=== PATIENT | male | born 1940 | race Caucasian/White ===

== ENCOUNTER 2016-04-22 09:56 | Outpatient (RCR) | payer MEDICARE ==
[~2016-04-22 09:56] MED LIST: ACDPT PO; ACET-2151; ALLO100T PO; ALLP100T PO; ALPR.25T; AMIO200T2 PO; AMIO200T50 PO; AMIO400T2; AMIT25TA9 PO; ASP81TEC; ASP81TEC PO; ATOR10TA66 PO; ATRV10T PO; BUDE10.2 IH; CARV6.252 PO; CEFU500T5 PO; CHOL500014 PO; CHOL50007 PO; DABI75CA3 PO; DILT120C PO; DILT120C56 PO; DOXA1TAB PO; FURO20TA4 PO; FURO40TA4; FURO40TA4 PO; FURO80TA3 PO; HDRL25T; HYDR-2997 PO; HYDR-3156 PO; HYDR-3490 PO; HYDR-3604; HYDR-3714; HYOS0.1283 SL; KCL20TCR PO; LISI20TA PO; LOVA20TA2 PO; METO-270 PO; METO-333; METO2.5T PO; METO25TA2; METO50TA7 PO; MTP50T; MTP50T PO; MULT-608; NAPR-243 PO; POTA10CA43; POTA20TA15 PO; SMV20T PO; SPIRIVA HHN; SYMBICORT; TIOT4MIS2 INH; TML5OP2.5; TML5OP2.5 OU; TMZP15C PO; TORS100T2 PO; TORS100T4 PO; WARF2.5T82 PO; WRF2.5T PO; WRF5T PO; [UNRECOGNIZED DRUG - CODE]; [UNRECOGNIZED DRUG - CODE] OU
== END 2016-04-22 16:00 | disposition home or self-care (01) ==
LOC: WOUNDCARE 09:56
PROVIDERS: ATTEND Surgery
DX: L97.211 Non-pressure chronic ulcer of right calf limited to breakdown of skin (principal); L97.221 Non-pressure chronic ulcer of left calf limited to breakdown of skin; I87.333 Chronic venous hypertension (idiopathic) with ulcer and inflammation of bilateral lower extremity; I70.232 Atherosclerosis of native arteries of right leg with ulceration of calf; I70.242 Atherosclerosis of native arteries of left leg with ulceration of calf; J44.9 Chronic obstructive pulmonary disease, unspecified; I50.20 Unspecified systolic (congestive) heart failure; N18.9 Chronic kidney disease, unspecified
CPT/HCPCS: 11042; 29581; 97597; 99213

== ENCOUNTER → 2016-05-12 | Outpatient (CLI) | payer MEDICARE ==
--- NOTE | 2016-05-12 09:35 | Diagnostic Imaging Report ---
INDICATION: Shortness of breath, abnormal auscultation from an outside facility. Exam compared 02/27/2016. FINDINGS: The heart is enlarged but decreased in size from the prior. There is prominence of the central and upper lobe pulmonary venous structures; however, this is also improvement from prior. There is some air trapping and chronic COPD. Interstitial opacities in the lower lobes are believed chronic but could easily obscure element of interstitial edema superimposed. IMPRESSION: While there is cardiomegaly and vascular congestion, these findings improved from the prior study. Interstitial changes bilaterally at least in part chronic, however, would make an element of interstitial edema superimposed very difficult to exclude. Dictated by: Dictated on workstation # [id number]
== END ==
LOC: RAD 09:10
PROVIDERS: ATTEND Internal Medicine
DX: J81.1 Chronic pulmonary edema (principal)
CPT/HCPCS: 71020

== ENCOUNTER 2016-05-20 13:51 | Outpatient (RCR) | payer MEDICARE | END 2016-05-20 16:00 | disposition home or self-care (01) | LOC: WOUNDCARE 13:51 | PROVIDERS: ATTEND Surgery | DX: L97.211 Non-pressure chronic ulcer of right calf limited to breakdown of skin (principal); I87.331 Chronic venous hypertension (idiopathic) with ulcer and inflammation of right lower extremity; N18.9 Chronic kidney disease, unspecified; I50.20 Unspecified systolic (congestive) heart failure; J44.9 Chronic obstructive pulmonary disease, unspecified | CPT/HCPCS: 29581; 99212 ==

== ENCOUNTER 2016-06-14 12:08 | Emergency (ER) | payer MEDICARE ==
[~2016-06-14] VITALS: Ht 172.7 cm; Wt 91.2 kg
[2016-06-14] MEDS ORDERED: OXYMETAZOLINE (AFRIN) 0.05% NA 15 ML BTL ONE (12:14)
--- NOTE | 2016-06-14 12:28 | ED Fall/Injury ---
General Chief Complaint: Trauma-Non Activation Stated Complaint: FALL, FACIAL INJ Nursing Triage Note: Patient advised he was walking at his residence when he tripped on his oxygen tubing and fell. Pt. denies loss of consciousness at the time of the incident and is A&O x 3 upon EMS arrival. Source: patient Exam Limitations: no limitations History of Present Illness Time seen by provider: 12:27 Initial Comments To ER per EMS from home with reports of a fall. Patient was in the living room when he tripped over his oxygen tubing falling face first onto the carpet. There is no loss of consciousness and he denies neck pain headache or vomiting. However he is on Pradaxa and has a nosebleed rather significant. No other injuries. He wears oxygen jtubzj-zyb-[id number] at 4 L for history of emphysema. Location Injury Occurred: patients home Occurred: just prior to arrival Severity: moderate Injuries/Pain Location: head, face Associated Symptoms (Fall): No Abdominal Pain, No Chest Pain, No Headache, No Neck Pain, No Seizures Allergies and Home Medications Allergies Coded Allergies: No Known Drug Allergies (Verified , 02/14/09) Home Medications Acetaminophen/Diphenhydramine 1 Ea Tab 2 TAB PO HS (Reported) Allopurinol 100 Mg Tablet 100 MG PO BID (Reported) Amiodarone HCl 200 Mg Tablet 200 MG PO 1700 (Reported) Aspirin 81 Mg Tabec 81 MG PO HS (Reported) Atorvastatin Calcium 10 Mg Tablet 10 MG PO Q48H (Reported) Budesonide/Formoterol Fumarate 10.2 Gm Hfa.aer.ad 2 PUFF IH BID (Reported) Dabigatran Etexilate Mesylate 75 Mg Capsule 75 MG PO 0700,1700 (Reported) Metoprolol Succinate 25 Mg Tab.er.24h 12.5 MG PO DAILY (Reported) TAKES 1/2 (25MG) TABLET Tiotropium [place] 4 Gm Mist.inhal 2 PUFF INH DAILY (Reported) Torsemide 100 Mg Tablet 50 MG PO DAILY (Reported) TAKES 1/2 (100MG) TABLET Constitutional: see HPI Eyes: No Symptoms Reported Ears, Nose, Mouth, Throat: see HPI epistaxis Respiratory: no symptoms reported Genitourinary: no symptoms reported Musculoskeletal: no symptoms reported Skin: no symptoms reported Past Iuicdur-Eratcv-Jtkypt Hx Patient Social History Alcohol Use: Denies Use Recreational Drug Use: No Smoking Status: Never a Smoker Type Used: Cigarettes Former Smoker/When Quit: Mar 30, 1996 Recent Foreign Travel: No Contact w/Someone Who Travel: No Recent Infectious Disease Expo: No Recent Hopitalizations: Yes Immunizations Up To Date Tetanus Booster (TDap): Less than 5yrs PED Vaccines UTD: No Date of Pneumonia Vaccine: Dec 27, 2015 Seasonal Allergies Seasonal Allergies: No Surgeries HX Surgeries: Yes (PORT FOR CHEMO, THEN REMOVED. quad bypass) Surgeries: Cardiac, CABG, Defibrillator, Pacemaker Respiratory Hx Respiratory Disorders: Yes (DYSPNEA) Respiratory Disorders: Sleep Apnea, COPD Cardiovascular Hx Cardiac Disorders: Yes (pacemaker/defibulator) Cardiac Disorders: Atrial Fibrillation, Cardiomyopathy, Chronic Edema/Swelling , Coronary Artery Disease, High Cholesterol, Hypertension Neurological Hx Neurological Disorders: No Reproductive System Hx Reproductive Disorders: No Genitourinary Hx Genitourinary Disorders: Yes (stage 3 renal failure) Genitourinary Disorders: Renal Failure Gastrointestinal Hx Gastrointestinal Disorders: No Musculoskeletal Hx Musculoskeletal Disorders: Yes Musculoskeletal Disorders: Chronic Back Pain Endocrine Hx Endocrine Disorders: No Endocrine Disorders: Diabetes, Non-Insulin dep HEENT HX ENT Disorders: Yes HEENT Disorders: Glaucoma Hearing Impairment: Hard of Hearing 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 Psychosocial Hx Psychiatric Problems: No Integumentary HX Skin/Integumentary Disorder: No Blood Transfusions Hx Blood Disorders: Yes (HX OF NON HODGKINS LYMPHOMA IN 1996) Adverse Reaction to a Blood Tr: No Family Medical History Family Medial History: Diabetes mellitus G8 BROTHER Prostate cancer G8 BROTHER Physical Exam Vital Signs Vital Sign - Last 12Hours Capillary Refill : Less Than 3 Seconds General Appearance: WD/WN no apparent distress HEENT: PERRL/EOMI TMs normal other (active bleeding from the anterior portion of the septum on the right and a bit more posterior on the left. The right is a heavier bleeding was cauterized easily with silver nitrate then Merocel/Afrin bilaterally.) Neck: non-tender full range of motion Respiratory: normal breath sounds no respiratory distress no accessory muscle use Gastrointestinal: normal bowel sounds non tender soft Extremities: normal range of motion non-tender normal inspection Neurologic/Psychiatric: alert normal mood/affect oriented x 3 Progress/Results/Core Measures Results/Orders My Orders Orders-LENA MAZARIEGOS APRN Ct Head/Face/Cervical Wo (06/14/16 12:26) Oxymetazoline 0.05% Nasal [place] (Afrin 0. (06/14/16 21:00) Tranexamic Acid Injection (Cyklokapron I (06/14/16 13:15) Tranexamic Acid Injection (Cyklokapron I (06/14/16 13:15) Medications Given in ED Current Medications Medications Dose Ordered Sig/Ashley Route Start Time Stop Time Status Last Admin Dose Admin Oxymetazoline HCl 15 ml STK-MED ONCE .ROUTE 06/14/16 12:14 06/14/16 12:16 DC 06/14/16 12:26 15 ML Tranexamic Acid To be applied topica... ONCE ONCE IV 06/14/16 13:15 06/14/16 13:16 DC 06/14/16 13:35 1 MG Vital Signs/I&O Vital Sign - Last 12Hours 06/14/16 06/14/16 12:17 12:17 Temp 98.6 98.6 Pulse 81 81 Resp 14 14 B/P 114/56 114/56 Pulse Ox 98 98 O2 Delivery Nasal Cannula Nasal Cannula O2 Flow Rate 4 Blood Pressure Mean: 75 Progress Note : Progress Note 1316-the right nostril/septum was cauterized with silver nitrate and then a Merocel sponge was placed bilaterally and soaked in Afrin. That was about 30- 40 minutes ago. At this time the right side is not bleeding, there is a slow but persistent ooze to the left side of the septum we will apply TXa on a Merocel sponge to the left topically and reevaluate. 1345-left side of the septum continues to use. This is despite TXa and Afrin. Silver nitrate was applied topically with hemostasis. 1435-still no bleeding from the left side of the septum. We will discharge to home. He will be sent home with an OXy mask to use instead of a nasal cannula for the next 24-36 hours. His oxygen saturation on his baseline 4 L per oxymask is 95 percent. Departure Impression Impression: Primary Impression: Fall at home Additional Impressions: Epistaxis Anticoagulant long-term use Disposition: HOME, SELF-CARE Condition: Improved Departure-Patient Inst. Decision time for Depature: 13:21 Referrals: MITCH GALLARDO MD (PCP/Family) Primary Care Physician Patient Instructions: Nosebleeds Add. Discharge Instructions: 1. If your nose bleeds again apply the nose clamp for 20 minutes and lean forward. This does not stop the bleeding return to the emergency room 2. Wear the mask provided for the next 24-36 hours before switching back to nasal cannula 3. Call your doctor for follow-up next week All discharge instructions reviewed with patient and/or family. Voiced understanding. LENA MAZARIEGOS APRN Jun 14, 2016 12:28
--- NOTE | 2016-06-14 13:08 | Diagnostic Imaging Report ---
PROCEDURE: CT head, face, and cervical spine without contrast. TECHNIQUE: Multiple contiguous axial images were obtained through the head, neck, and facial bones without the use of intravenous contrast. Sagittal and coronal reformations through the cervical spine and facial bones were also performed. INDICATION: Fall with trauma to the face. Swelling. COMPARISON: None. CT HEAD: The ventricles and cortical sulci are diffusely prominent, compatible with age-related volume loss. There are confluent areas of abnormal, low attenuation in the periventricular white matter. This is consistent with small vessel ischemic changes; age-indeterminate. There is no prior study available for comparison. There is no midline shift or mass-effect. No acute intra-axial hemorrhage is seen. There are no abnormal areas of increased or decreased density to suggest acute hemorrhage or edema. No extra-axial masses or collections are present. The bony calvarium is intact. CT FACIAL BONES: Linear hyperdense focus is identified within the anterior right naris (image 49, series 4). Correlation with foreign body is recommended. Otherwise, the nasal bones are intact. The bony nasal septum is intact, as well. Evaluation of the paranasal sinuses demonstrate air-fluid level and mild amount of mucosal thickening in the left maxillary sinus. Moderate mucosal thickening with small air-fluid level and debris are also noted within the right maxillary sinus. There is mild scattered mucosal thickening of the ethmoid air cells. Minimal mucosal thickening in the left sphenoid sinus is also noted. Frontal sinuses and right sphenoid sinus are unremarkable. There is no acute fracture or dislocation of the paranasal sinuses. No acute bony abnormalities are identified. Bilateral zygomatic arches are intact. There is no evidence acute fracture. Medial and lateral pterygoid plates are intact, as well. There is no evidence of acute fracture or dislocation of the mandible. There is no fracture of the alveolar ridge of the maxilla. Mastoid air cells show scattered partial opacification bilaterally. No other acute bony abnormalities are seen. There is no fracture of the orbits. Scleral banding is noted bilaterally. Otherwise, the globes are unremarkable. No other unexpected radiopaque foreign bodies are seen. There is no soft tissue emphysema. CT CERVICAL SPINE: Static alignment of the cervical spine is maintained. There is no significant anteroretrolisthesis. There is no evidence of jumped facets. Vertebral body heights are preserved. There is no evidence of acute fracture. No bony fragments are seen within the spinal canal. There are multilevel degenerative changes consisting of intervertebral disc height loss at the anterior and posterior disc osteophyte complex formations. These changes are fairly diffuse and are greatest at the C4-C5 through C7-T1 levels. Pre-and paravertebral soft tissue structures are unremarkable. Included views of the lung apices show partially visualized right-sided pleural effusion. IMPRESSION: 1. No acute intracranial abnormality. No CT evidence of mass, acute infarct or intracranial hemorrhage. 2. Small vessel ischemic changes in the periventricular and subcortical white matter; likely chronic. 3. No CT evidence of acute fracture or dislocation of the facial bones. 4. Paranasal sinus disease with air-fluid levels in the bilateral maxillary sinuses. Correlation for underlying acute sinusitis is recommended. 5. No CT evidence of acute fracture or dislocation of the cervical spine. 6. Advanced diffuse multilevel degenerative changes of the cervical spine. 7. Scattered opacification of the mastoid air cells, bilaterally. In the correct clinical setting, this can be seen as a sequela of mastoiditis. Clinical correlation recommended. Dictated by: Dictated on workstation # [id number]
[2016-06-14] MEDS ORDERED: TRANEXAMIC ACID 100 MG/ML 10 ML INJECTION IV ONE ×2 (13:15)
[2016-06-14 14:41] VITALS: BP 112/72
[2016-06-14] MEDS ORDERED: OXYMETAZOLINE (AFRIN) 0.05% NA 15 ML BTL SCH (21:00)
== END 2016-06-14 14:41 | disposition home or self-care (01) ==
LOC: EDUNIT# 12:08 → ER 12:09
DX: R04.0 Epistaxis (principal); J43.9 Emphysema, unspecified; M47.819 Spondylosis without myelopathy or radiculopathy, site unspecified; J32.0 Chronic maxillary sinusitis; I10 Essential (primary) hypertension; E11.9 Type 2 diabetes mellitus without complications; I48.2 Chronic atrial fibrillation; Z79.01 Long term (current) use of anticoagulants; Z79.82 Long term (current) use of aspirin; Z79.899 Other long term (current) drug therapy; Z95.810 Presence of automatic (implantable) cardiac defibrillator; Z99.81 Dependence on supplemental oxygen
CPT/HCPCS: 70450; 70486; 72125; 96374; 99283

== ENCOUNTER 2016-07-03 12:57 | Outpatient (RCR) | payer MEDICARE ==
[2016-06-26 14:27] VITALS: BP 96/70
[~2016-07-03] VITALS: Ht 172.7 cm; Wt 91.3 kg
[~2016-07-03 12:57] MED LIST changes: +ACETAMINOPHEN 500 MG TAB (TYLENOL) PO PRN; +FERRIC CARBOXYMALTOSE 750 MG /NS 250 ML IV SCH; +diphenhydrAMINE 50 MG/ML INJ (BENADRYL) IV PRN
[2016-07-03 17:07] VITALS: BP 92/66
[2016-08-21] MEDS ORDERED: DCL250C PO (00:42)
[2016-08-21] MEDS ORDERED: LEVO250T46 PO (00:42)
[2016-08-21] MEDS ORDERED: SERT50TA9 PO (00:42)
== END 2016-09-24 | disposition home or self-care (01) ==
LOC: SDC 12:57
PROVIDERS: ATTEND Internal Medicine Nephrology
DX: D50.9 Iron deficiency anemia, unspecified (principal); D63.1 Anemia in chronic kidney disease; N18.4 Chronic kidney disease, stage 4 (severe)
CPT/HCPCS: 96365

== ENCOUNTER 2016-07-12 09:06 | Emergency (ER) | payer MEDICARE ==
[~2016-07-12] VITALS: Ht 172.7 cm; Wt 92.5 kg
[~2016-07-12 09:06] MED LIST changes: -ACETAMINOPHEN 500 MG TAB (TYLENOL) PO PRN; -FERRIC CARBOXYMALTOSE 750 MG /NS 250 ML IV SCH; -diphenhydrAMINE 50 MG/ML INJ (BENADRYL) IV PRN
[2016-07-12] MEDS ORDERED: RT-ALBUTEROL/IPRATROPIUM 3 ML (DUONEB) VIAL INH ONE (09:30)
[2016-07-12 09:43] LABS: BASOPHILS % (AUTO) 0 % (0-10); EOSINOPHILS # (AUTO) 0.2 10^3/uL (0.0-0.3); EOSINOPHILS % (AUTO) 4 % (0-10); LYMPHOCYTES # (AUTO) 1.1 X 10^3 (1.0-4.0); LYMPHOCYTES % (AUTO) 19 % (12-44); MEAN CORPUSCULAR HEMOGLOBIN 30 PG (25-34); MEAN CORPUSCULAR HGB CONC 31 G/DL (32-36); MEAN CORPUSCULAR VOLUME 95 FL (80-99); MEAN PLATELET VOLUME 11.8 FL (7.4-10.4); MONOCYTES % (AUTO) 17 % (0-12); NEUTROPHILS # (AUTO) 3.5 X 10^3 (1.8-7.8); NEUTROPHILS % (AUTO) 60 % (42-75); PLATELET COUNT 158 10^3/uL (130-400); RED BLOOD COUNT 3.63 10^6/uL (4.35-5.85); RED CELL DISTRIBUTION WIDTH 20.2 % (10.0-14.5); WHITE BLOOD COUNT 5.8 10^3/uL (4.3-11.0)
[2016-07-12 09:55] LABS: INR 2.2 (0.8-1.4)
[2016-07-12 10:03] LABS: ALBUMIN 3.5 G/DL (3.2-4.5); BILIRUBIN,TOTAL 1.5 MG/DL (0.1-1.0); CALCIUM 8.6 MG/DL (8.5-10.1); CREATININE SERUM 4.37 MG/DL (0.60-1.30); POTASSIUM 4.4 MMOL/L (3.6-5.0); TOTAL PROTEIN 7.2 G/DL (6.4-8.2)
--- NOTE | 2016-07-12 10:21 | Diagnostic Imaging Report ---
EXAM: CHEST PA/LAT (2 VIEW) INDICATION: Hemoptysis. COMPARISON: Chest radiographs 05/12/2016. FINDINGS: Interval increase in atelectasis or infiltrate in the right medial lung base. Cardiomegaly with increased pulmonary venous congestion. Diffuse prominence of the interstitium. Hyperinflation. Blunting of the costophrenic angles could be due to tiny effusions or pleural thickening. Calcified aorta. No pneumothorax. IMPRESSION: 1. Interval progression of atelectasis and/or infiltrate in the right medial lung base. 2. The remainder is stable including cardiomegaly with increased pulmonary vascularity and prominence of the interstitium throughout both lungs. Dictated by: Dictated on workstation # [id number]
[2016-07-12] MEDS ORDERED: NS IV 1000 ML 1,000 ML IV ONE (11:11)
[2016-07-12] MEDS ORDERED: NS IV 500 ML 500 ML IV ONE (11:13)
--- NOTE | 2016-07-12 11:27 | ED General ---
General Chief Complaint: Coughing up blood Stated Complaint: WHEEZING, COUHGING UP BLOOD Nursing Triage Note: STATES HE STARTED WHEEZING THIS AM AND COUGHING UP BLOOD. Nursing Sepsis Screen: No Definite Risk Source of Information: Patient, Family, Old Records History of Present Illness Time Seen by Provider: 09:10 Initial Comments This 76-year-old gentleman presents to the emergency room with complaints of hemoptysis. He is on Ranexa for atrial fibrillation. He has history of pneumonia for which she was admitted in February. He has COPD and congestive heart failure as well. He reports one episode of blood approximately a teaspoon and volume. His cough is also productive of sputum. He is wheezy on auscultation and has some coarse breath sounds particularly on the right. He has some lower extremity edema. His primary care provider is Dr. Mitch Hong. His wrapper sheeter is Dr. Charlotte pérez. He is also seen Dr. Robledo in the past. Allergies and Home Medications Allergies Coded Allergies: No Known Drug Allergies (Verified , 02/14/09) Home Medications Acetaminophen/Diphenhydramine 1 Ea Tab, 2 TAB PO HS, (Reported) Allopurinol 100 Mg Tablet, 100 MG PO BID, (Reported) Amiodarone HCl 200 Mg Tablet, 200 MG PO 1700, (Reported) Aspirin 81 Mg Tabec, 81 MG PO HS, (Reported) Atorvastatin Calcium 10 Mg Tablet, 10 MG PO Q48H, (Reported) Budesonide/Formoterol Fumarate 10.2 Gm Hfa.aer.ad, 2 PUFF IH BID, (Reported) Dabigatran Etexilate Mesylate 75 Mg Capsule, 75 MG PO 0700,1700, (Reported) Metoprolol Succinate 25 Mg Tab.er.24h, 12.5 MG PO DAILY, (Reported) TAKES 1/2 (25MG) TABLET Tiotropium [place] 4 Gm Mist.inhal, 2 PUFF INH DAILY, (Reported) Torsemide 100 Mg Tablet, 50 MG PO DAILY, (Reported) TAKES 1/2 (100MG) TABLET Constitutional: no symptoms reported EENTM: no symptoms reported Respiratory: see HPI Cardiovascular: see HPI Gastrointestinal: no symptoms reported Genitourinary: no symptoms reported Musculoskeletal: no symptoms reported Skin: no symptoms reported Psychiatric/Neurological: No Symptoms Reported Hematologic/Lymphatic: No Symptoms Reported Past Tpkixtq-Uwddif-Zijhmd Hx Patient Social History Alcohol Use: Denies Use Recreational Drug Use: No Smoking Status: Former Smoker Type Used: Cigarettes Former Smoker/When Quit: Mar 30, 1996 Recent Foreign Travel: No Contact w/Someone Who Travel: No Recent Infectious Disease Expo: No Recent Hopitalizations: Yes Immunizations Up To Date Tetanus Booster (TDap): Less than 5yrs PED Vaccines UTD: No Date of Pneumonia Vaccine: Dec 27, 2015 Date of Influenza Vaccine: Dec 27, 2015 Seasonal Allergies Seasonal Allergies: No Surgeries HX Surgeries: Yes (PORT FOR CHEMO, THEN REMOVED, QUAD BYPASS) Surgeries: Cardiac, CABG, Defibrillator, Pacemaker Respiratory Hx Respiratory Disorders: Yes (DYSPNEA) Respiratory Disorders: Sleep Apnea, COPD Cardiovascular Hx Cardiac Disorders: Yes (PACEMAKER/DEFIBRILLATOR, CHF) Cardiac Disorders: Atrial Fibrillation, Cardiomyopathy, Chronic Edema/Swelling , Coronary Artery Disease, High Cholesterol, Hypertension Neurological Hx Neurological Disorders: No Reproductive System Hx Reproductive Disorders: No Genitourinary Hx Genitourinary Disorders: Yes (STAGE 3 RENAL FAILURE) Genitourinary Disorders: Renal Failure Gastrointestinal Hx Gastrointestinal Disorders: No Musculoskeletal Hx Musculoskeletal Disorders: Yes Musculoskeletal Disorders: Chronic Back Pain Endocrine Hx Endocrine Disorders: No Endocrine Disorders: Diabetes, Non-Insulin dep HEENT HX ENT Disorders: Yes (GLASSES) HEENT Disorders: Glaucoma Loss of Vision: Bilateral Hearing Impairment: Hard of Hearing 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 Psychosocial Hx Psychiatric Problems: No Integumentary HX Skin/Integumentary Disorder: No Blood Transfusions Hx Blood Disorders: Yes (HX OF NON HODGKINS LYMPHOMA IN 1996) Adverse Reaction to a Blood Tr: No Family Medical History Family Medial History: Diabetes mellitus G8 BROTHER Prostate cancer G8 BROTHER Physical Exam Vital Signs Vital Sign - Last 12Hours 07/12/16 09:16 Temp 97.1 Pulse 81 B/P (MAP) 92/72 Pulse Ox 100 O2 Delivery Nasal Cannula O2 Flow Rate 4.00 Capillary Refill : Less Than 3 Seconds General Appearance: No Apparent Distress, WD/WN HEENT: PERRL/EOMI (with chronic conjunctivitis), Normal ENT Inspection Neck: Normal Inspection Respiratory: No Accessory Muscle Use, No Respiratory Distress, Rhonci (coarse breath sounds right greater than left) Cardiovascular: Regular Rate, Rhythm, No Edema, No Murmur Gastrointestinal: Normal Bowel Sounds, Non Tender, Soft Extremity: Non Tender, Swelling Neurologic/Psychiatric: Alert, Oriented x3, No Motor/Sensory Deficits, Normal Mood/Affect, high school principal II-XII Norm as Tested Skin: Normal Color, Warm/Dry Focused Exam Lactic Acid Level Laboratory Tests Test 07/12/16 12:10 Progress/Results/Core Measures Results/Orders Lab Results Laboratory Tests Test 07/12/16 09:36 07/12/16 12:10 Range/Units White Blood Count 5.8 4.3-11.0 10^3/uL Red Blood Count 3.63 L 4.35-5.85 10^6/uL Hemoglobin 10.8 L 13.3-17.7 G/DL Hematocrit 35 L 40-54 % Mean Corpuscular Volume 95 80-99 FL Mean Corpuscular Hemoglobin 30 25-34 PG Mean Corpuscular Hemoglobin Concent 31 L 32-36 G/DL Red Cell Distribution Width 20.2 H 10.0-14.5 % Platelet Count 158 130-400 10^3/uL Mean Platelet Volume 11.8 H 7.4-10.4 FL Neutrophils (%) (Auto) 60 42-75 % Lymphocytes (%) (Auto) 19 12-44 % Monocytes (%) (Auto) 17 H 0-12 % Eosinophils (%) (Auto) 4 0-10 % Basophils (%) (Auto) 0 0-10 % Neutrophils # (Auto) 3.5 1.8-7.8 X 10^3 Lymphocytes # (Auto) 1.1 1.0-4.0 X 10^3 Monocytes # (Auto) 1.0 0.0-1.0 X 10^3 Eosinophils # (Auto) 0.2 0.0-0.3 10^3/uL Basophils # (Auto) 0.0 0.0-0.1 10^3/uL Prothrombin Time 24.0 H 12.2-14.7 SEC INR Comment 2.2 H 0.8-1.4 Activated Partial Thromboplast Time 68 H 24-35 SEC Sodium Level 138 135-145 MMOL/L Potassium Level 4.4 3.6-5.0 MMOL/L Chloride Level 102 98-107 MMOL/L Carbon Dioxide Level 22 21-32 MMOL/L Anion Gap 14 5-14 MMOL/L Blood Urea Nitrogen 115 *H 7-18 MG/DL Creatinine 4.37 H 0.60-1.30 MG/DL Estimat Glomerular Filtration Rate 13 BUN/Creatinine Ratio 26 Glucose Level 92 70-105 MG/DL Calcium Level 8.6 8.5-10.1 MG/DL Total Bilirubin 1.5 H 0.1-1.0 MG/DL Aspartate Amino Transf (AST/SGOT) 21 5-34 U/L Alanine Aminotransferase (ALT/SGPT) 12 0-55 U/L Alkaline Phosphatase 139 H 40-136 U/L C-Reactive Protein High Sensitivity 1.59 H 0.00-0.50 MG/DL B-Type Natriuretic Peptide 3722.5 H <100.0 PG/ML Total Protein 7.2 6.4-8.2 G/DL Albumin 3.5 3.2-4.5 G/DL Micro Results Microbiology 07/12/16 Influenza Types A,B Antigen (MARS) - Final, Complete My Orders Orders - ROBSON ROSS MD Cbc With Automated Diff (07/12/16 09:06) Comprehensive Metabolic Panel (07/12/16 09:06) Protime With Inr (07/12/16 09:06) Partial Thromboplastin Time (07/12/16 09:06) Influenza A And B Antigens (07/12/16 09:06) Saline Lock/Iv-Start (07/12/16 09:06) Chest Pa/Lat (2 View) (07/12/16 09:06) Albuterol/Ipra Inhalation Soln (Duoneb I (07/12/16 09:30) Svn Sm Volume Nebulizer Rt-Rfs (07/12/16 09:25) BNP (07/12/16 09:26) Ns Iv 1000 Ml (Sodium Chloride 0.9%) (07/12/16 11:11) Hs C Reactive Protein (07/12/16 11:13) Ns Iv 500 Ml (Sodium Chloride 0.9%) (07/12/16 11:13) Lactic Acid Analyzer (07/12/16 11:13) Blood Culture (07/12/16 11:13) Piperacillin Sodium/Tazobactam (Zosyn Vi (07/12/16 11:30) Ekg Tracing (07/12/16 11:22) Monitor-Rhythm Ecg Trace Only (07/12/16 11:22) Sputum Culture (07/12/16 11:38) Medications Given in ED Current Medications Medications Dose Ordered Sig/Ashley Route Start Time Stop Time Status Last Admin Dose Admin Albuterol/ Ipratropium 3 ml ONCE ONCE INH 07/12/16 09:30 07/12/16 09:31 DC 07/12/16 09:39 3 ML Sodium Chloride 500 ml @ 0 mls/hr Q0M ONCE IV 07/12/16 11:13 07/12/16 11:15 DC 07/12/16 11:40 500 MLS/HR Vital Signs/I&O Vital Sign - Last 12Hours 07/12/16 07/12/16 07/12/16 09:16 09:39 10:09 Temp 97.1 Pulse 81 B/P (MAP) 92/72 Pulse Ox 100 96 O2 Delivery Nasal Cannula Nasal Cannula O2 Flow Rate 4.00 4.00 4.00 Blood Pressure Mean: 79 Progress Note : Time: 11:27 Progress Note Patient was found to be in both heart failure and renal failure after evaluation of labs and chest x-ray. He continues to cough up a scant amount of blood. Patient's reports he was actually scheduled to start dialysis soon. He sees Dr. eDnae Molina at [facility] in [place]. His renal function has been worsening recently and has been greater than 4 on an outpatient basis. She reports his last outpatient GFR was in the teens. GFR today is 13. Given his congestive failure with hemoptysis and coarse right-sided breath sounds and possible pneumonia, I feel it is best that he be transferred to [facility] for specialty care. In the meantime blood cultures and lactic acid have been drawn. Antibiotic therapy will be initiated with Zosyn. ECG Initial ECG Impression Date: Jul 12, 2016 Initial ECG Impression Time: 11:27 Initial ECG Rate: 78 Comment A. fib with paced rhythm at 78 bpm. Similar to prior with no acute changes. Diagnostic Imaging Diagonstic Imaging: Xray Plain Films/CT/US/NM/MRI: chest Comments Chest x-ray viewed by me and report reviewed. See report below: NAME: PEDRO LUIS SAMANIEGO MED REC#: [id number] PT STATUS: REG ER : 1940 PHYSICIAN: ROBSON ROSS MD ADMIT DATE: 07/12/16/ER Draft Date of Exam:07/12/16 CHEST PA/LAT (2 VIEW) EXAM: CHEST PA/LAT (2 VIEW) INDICATION: Hemoptysis. COMPARISON: Chest radiographs 05/12/2016. FINDINGS: Interval increase in atelectasis or infiltrate in the right medial lung base. Cardiomegaly with increased pulmonary venous congestion. Diffuse prominence of the interstitium. Hyperinflation. Blunting of the costophrenic angles could be due to tiny effusions or pleural thickening. Calcified aorta. No pneumothorax. IMPRESSION: 1. Interval progression of atelectasis and/or infiltrate in the right medial lung base. 2. The remainder is stable including cardiomegaly with increased pulmonary vascularity and prominence of the interstitium throughout both lungs. Dictated on workstation # [id number] Dict: 07/12/16 1015 Trans: 07/12/16 1020 [facility] [id number] Interpreted by: SANDRA BURGESS MD Departure Impression Impression: Primary Impression: Pneumonia Qualified Codes: J18.9 - Pneumonia, unspecified organism Additional Impressions: Chronic renal failure Qualified Codes: N18.9 - Chronic kidney disease, unspecified CHF exacerbation Qualified Codes: I50.9 - Heart failure, unspecified COPD exacerbation Hemoptysis Disposition: XF SHT-TRM HOSP Condition: Improved Transfer Transfer Time: 12:35 Transfer Facility: [facility] under the care of Dr. Luke Method of Transfer: EMS Departure-Patient Inst. Referrals: MITCH HONG MD (PCP/Family) Primary Care Physician ROBSON ROSS MD Jul 12, 2016 11:27
[2016-07-12] MEDS ORDERED: PIPERACILLIN SODIUM/TAZOBACTAM 4.5 GM in NS (IVPB) 100 ML IV ONE (11:30)
[2016-07-12 12:35] VITALS: BP 111/90
== END 2016-07-12 12:35 | disposition short-term general hospital (02) ==
LOC: EDUNIT# 09:06 → ER 09:07
DX: J18.9 Pneumonia, unspecified organism (principal); I13.0 Hypertensive heart and chronic kidney disease with heart failure and stage 1 through stage 4 chronic kidney disease, or unspecified chronic kidney disease; N18.4 Chronic kidney disease, stage 4 (severe); I50.9 Heart failure, unspecified; J44.1 Chronic obstructive pulmonary disease with (acute) exacerbation; R04.2 Hemoptysis; E11.9 Type 2 diabetes mellitus without complications; I48.2 Chronic atrial fibrillation; Z79.899 Other long term (current) drug therapy; Z79.82 Long term (current) use of aspirin; Z95.1 Presence of aortocoronary bypass graft
CPT/HCPCS: 36415; 71020; 80053; 83605; 83880; 85025; 85610; 85730; 86141; 87040; 87070; 87077; 87186; 87205; 87804; 93005; 94640; 96361; 96374

== ENCOUNTER → 2016-08-08 | Outpatient (CLI) | payer MEDICARE ==
[2016-08-08 11:14] LABS: MEAN PLATELET VOLUME 11.1 FL (7.4-10.4); RED BLOOD COUNT 3.68 10^6/uL (4.35-5.85); RED CELL DISTRIBUTION WIDTH 18.7 % (10.0-14.5); WHITE BLOOD COUNT 12.9 10^3/uL (4.3-11.0)
[2016-08-08 11:24] LABS: INR 1.9 (0.8-1.4); PROTHROMBIN TIME PATIENT 21.7 SEC (12.2-14.7)
[2016-08-08 11:35] LABS: ALBUMIN 3.2 G/DL (3.2-4.5); BILIRUBIN,TOTAL 2.3 MG/DL (0.1-1.0); CALCIUM 8.5 MG/DL (8.5-10.1); CREATININE SERUM 3.04 MG/DL (0.60-1.30); POTASSIUM 4.4 MMOL/L (3.6-5.0); TOTAL PROTEIN 6.4 G/DL (6.4-8.2); hs C REACTIVE PROTEIN 6.89 MG/DL (0.00-0.50)
--- NOTE | 2016-08-08 12:02 | Diagnostic Imaging Report ---
EXAMINATION: Right lower extremity duplex venous ultrasound. TECHNIQUE: DVT protocol. Multiple sonographic images with color Doppler and waveform interrogation were performed of the right lower extremity veins with compression and augmentation maneuvers. INDICATION: Right leg swelling. FINDINGS: The right lower extremity veins from the groin to below the knee veins were examined with normal color-flow, compressibility and normal waveform demonstrated. The great saphenous vein is patent. IMPRESSION: No evidence of DVT in the right lower extremity. Dictated by: Dictated on workstation # [id number]
== END ==
LOC: RAD 10:56
PROVIDERS: ATTEND Physician Assistant
DX: R22.41 Localized swelling, mass and lump, right lower limb (principal); M79.89 Other specified soft tissue disorders
CPT/HCPCS: 36415; 80053; 85027; 85610; 85730; 86141

== ENCOUNTER 2016-08-21 00:21 | Emergency (ER) | payer MEDICARE ==
[~2016-08-21] VITALS: Ht 172.7 cm; Wt 98.0 kg
[2016-08-21] MEDS ORDERED: MUPIROCIN 2% OINT 22 GM (BACTROBAN) TUBE ONE (00:40)
[2016-08-21] MEDS ORDERED: LEVO250T46 PO (00:42)
[2016-08-21] MEDS ORDERED: SERT50TA9 PO (00:42)
[2016-08-21] MEDS ORDERED: DCL250C PO (00:42)
[2016-08-21 00:45] LABS: MEAN PLATELET VOLUME 11.9 FL (7.4-10.4); RED BLOOD COUNT 3.69 10^6/uL (4.35-5.85); RED CELL DISTRIBUTION WIDTH 17.5 % (10.0-14.5); WHITE BLOOD COUNT 9.3 10^3/uL (4.3-11.0)
--- NOTE | 2016-08-21 00:45 | ED Upper Extremity ---
General Chief Complaint: Trauma-Non Activation Stated Complaint: FELL Nursing Triage Note: pt to er per ems with c/o fall. reports he was dizzy, fell, landing on left elbow. denies head injury or loc. skin tears on left elbow et left forearm. fistula placed left upper arm on 08/20/[address] [facility]. dressing remains in place. bright red blood noted under dressing. Nursing Sepsis Screen: No Definite Risk Source: patient, EMS, spouse History of Present Illness Time seen by provider: 00:24 Initial Comments PT ARRIVES VIA EMS FROM HOME PT GOT DIZZY ( FREQUENT PROBLEM) AND FELL--HITTING HIS LEFT ARM ON THE MICROWAVE STAND HAS MULTIPLE ABRASIONS TO LEFT ELBOW AND FOREARM PT HAD CREATION OF LEFT ARM AV FISTULA SURGERY TODAY FOR DIALYSIS--AT [facility] PT NOTED TO HAVE BRIGHT RED BLOOD UNDER SURGICAL DRESSING, SO CALLED EMS PT DOES NOT HAVE ANY PAIN ANYWHERE DID NOT HIT HEAD AND NO LOSS OF CONSCIOUSNESS NO CHEST PAIN, PALPITATIONS, OR SHORTNESS OF BREATH PT HAS BEEN OFF PRADAXA X 5 DAYS PT IS CURRENTLY BEING TREATED FOR CELLULITIS OF RIGHT LEG--ON LEVAQUIN AND DICLOXACILLIN--IS IMPROVING Allergies and Home Medications Allergies Coded Allergies: No Known Drug Allergies (Verified , 02/14/09) Home Medications Amiodarone HCl 200 Mg Tablet, 200 MG PO 1700, (Reported) Aspirin 81 Mg Tabec, 81 MG PO HS, (Reported) Atorvastatin Calcium 10 Mg Tablet, 10 MG PO Q48H, (Reported) Dabigatran Etexilate Mesylate 75 Mg Capsule, 75 MG PO 0700,1700, (Reported) Dicloxacillin Sodium 250 Mg Cap, 250 MG PO, (Reported) Levofloxacin 250 Mg Tablet, 250 MG PO DAILY, (Reported) Metoprolol Succinate 25 Mg Tab.er.24h, 12.5 MG PO DAILY, (Reported) TAKES 1/2 (25MG) TABLET on Thursday, Thursday, Thursday et Thursday. Not on dialysis days Sertraline HCl 50 Mg Tablet, 50 MG PO DAILY, (Reported) Constitutional: see HPI, dizziness Respiratory: no symptoms reported Cardiovascular: no symptoms reported Musculoskeletal: see HPI Skin: see HPI Psychiatric/Neurological: No Symptoms Reported Past Grcefky-Jwcbsa-Gglknr Hx Patient Social History Alcohol Use: Denies Use Recreational Drug Use: No Smoking Status: Former Smoker Type Used: Cigarettes Former Smoker/When Quit: Mar 30, 1996 Recent Foreign Travel: No Contact w/Someone Who Travel: No Recent Infectious Disease Expo: No Recent Hopitalizations: Yes Immunizations Up To Date Tetanus Booster (TDap): Less than 5yrs PED Vaccines UTD: No Date of Pneumonia Vaccine: Dec 27, 2015 Date of Influenza Vaccine: Dec 27, 2015 Seasonal Allergies Seasonal Allergies: No Surgeries HX Surgeries: Yes (PORT FOR CHEMO, THEN REMOVED, QUAD BYPASS; RIGHT CENTRAL LINE DIALYSIS CATHETER; LEFT ARM AV FISTUALA/DIALYSIS GRAFT 08/20/16 AT [facility]) Surgeries: Cardiac, CABG, Defibrillator, Dialysis, Pacemaker, Vascular Surgery Respiratory Hx Respiratory Disorders: Yes (DYSPNEA) Respiratory Disorders: Sleep Apnea, COPD Cardiovascular Hx Cardiac Disorders: Yes (PACEMAKER/DEFIBRILLATOR, CHF) Cardiac Disorders: Atrial Fibrillation, Cardiomyopathy, Chronic Edema/Swelling , Coronary Artery Disease, High Cholesterol, Hypertension Neurological Hx Neurological Disorders: No Reproductive System Hx Reproductive Disorders: No Genitourinary Hx Genitourinary Disorders: Yes (STAGE 3 RENAL FAILURE) Genitourinary Disorders: Renal Failure, Dialysis Gastrointestinal Hx Gastrointestinal Disorders: No Musculoskeletal Hx Musculoskeletal Disorders: Yes Musculoskeletal Disorders: Chronic Back Pain Endocrine Hx Endocrine Disorders: Yes Endocrine Disorders: Diabetes, Non-Insulin dep HEENT HX ENT Disorders: Yes (GLASSES) HEENT Disorders: Glaucoma Loss of Vision: Bilateral Hearing Impairment: Hard of Hearing 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 Psychosocial Hx Psychiatric Problems: No Integumentary HX Skin/Integumentary Disorder: No Blood Transfusions Hx Blood Disorders: Yes (HX OF NON HODGKINS LYMPHOMA IN 1996) Adverse Reaction to a Blood Tr: No Family Medical History Family Medial History: Diabetes mellitus G8 BROTHER Prostate cancer G8 BROTHER Physical Exam Vital Signs Vital Sign - Last 12Hours 08/21/16 08/21/16 00:21 01:12 Temp 98.1 Pulse 80 Resp 18 B/P (MAP) 98/71 (80) Pulse Ox 97 O2 Delivery Room Air O2 Flow Rate 2.00 Capillary Refill : Less Than 3 Seconds General Appearance: WD/WN, no apparent distress Neck: normal inspection Cardiovascular: regular rate, rhythm Respiratory: chest non-tender, normal breath sounds Gastrointestinal: non tender, soft Back: no CVA tenderness, no vertebral tenderness Shoulder: normal inspection Elbow/Forearm: Left (LEFT ELBOW AND FOREARM WITH MULTIPLE MINOR ABRASIONS AND SKIN TEARS, WITH MILD OOZING OF BLOOD FROM SOME AREAS. DRESSING TO LEFT AC AREA WITH 4 X 5 CM AREA OF BRIGHT RED BLOOD. DRESSING REMOVED BRIEFLY AND REVEALS THAT SURGICAL WOUND APPEARS TO BE INTACT WITH STERI STRIPS STILL IN PLACE AND NO ACTIVE BLEEDING AT THIS TIME, NO ACUTE HEMATOMA FORMATION. MOTOR/ SENSORY/VASCULAR INTACT. FULL ROM. NO BONY TENDERNESS. ) Wrist: Yes normal inspection Hand: normal inspection Neurologic/Tendon: normal sensation, normal motor functions, normal tendon functions Neurologic/Psychiatric: chief fishery division II-XII nml as tested, alert, normal mood/affect, oriented x 3 Skin: normal color, warm/dry, other (WOUNDS NOTED ABOVE. BILATERAL LOWER LEGS WITH 2+ EDEMA AND CHRONIC VENOUS STASIS CHANGES AND DRESSING ON RIGHT LOWER LEG WOUND. MILD CELLULITIS TO RIGHT THIGH) Suture Removal/Wound Recheck : Suture Removal/Wound Recheck: Dry/sterile dressing-appl Progress/Results/Core Measures Results/Orders Lab Results Laboratory Tests Test 08/21/16 00:24 Range/Units White Blood Count 9.3 4.3-11.0 10^3/uL Red Blood Count 3.69 L 4.35-5.85 10^6/uL Hemoglobin 11.3 L 13.3-17.7 G/DL Hematocrit 36 L 40-54 % Mean Corpuscular Volume 98 80-99 FL Mean Corpuscular Hemoglobin 31 25-34 PG Mean Corpuscular Hemoglobin Concent 31 L 32-36 G/DL Red Cell Distribution Width 17.5 H 10.0-14.5 % Platelet Count 144 130-400 10^3/uL Mean Platelet Volume 11.9 H 7.4-10.4 FL Prothrombin Time 18.3 H 12.2-14.7 SEC INR Comment 1.6 H 0.8-1.4 Activated Partial Thromboplast Time 43 H 24-35 SEC My Orders Orders - LARRY GONZALEZ DO Mupirocin Ointment (Bactroban Ointment (08/21/16 09:00) Wound Dressing-Ed (08/21/16 00:36) Cbc No Diff (08/21/16 00:41) Protime With Inr (08/21/16 00:41) Partial Thromboplastin Time (08/21/16 00:41) Mupirocin Ointment (Bactroban Ointment (08/21/16 00:40) Saline Lock/Iv-Start (08/21/16 00:55) Vital Signs/I&O Vital Sign - Last 12Hours 08/21/16 08/21/16 08/21/16 00:21 00:23 01:12 Temp 98.1 97.1 Pulse 80 80 80 Resp 18 18 16 B/P (MAP) 98/71 (80) 98/71 Pulse Ox 97 98 O2 Delivery Room Air O2 Flow Rate 2.00 Blood Pressure Mean: 80 Progress Note : Progress Note VERY BRIEFLY REMOVED SURGICAL DRESSING TO EXAMINE SURGICAL WOUND, WHICH APPEARS TO BE INTACT. SURGICAL DRESSING RE-APPLIED TO WOUND IT IS A SILVER-BASED DRESSING, AND WE DO NOT HAVE SIMILAR DRESSING TO REPLACE IT.--REINFORCED WITH OPSITE DRESSINGS OVER IT. ALL OTHER WOUNDS WERE CLEANSED WITH BETASEPT, BACTROBAN AND STERILE DRESSINGS APPLIED Departure Impression Impression: Primary Impression: Status post fall Additional Impressions: Multiple skin tears BLEEDING FROM SURGICAL SITE RECENT LEFT ARM AV FISTULA Disposition: 01 HOME, SELF-CARE Condition: Stable Departure-Patient Inst. Referrals: MITCH GALLARDO MD (PCP/Family) Primary Care Physician Patient Instructions: Skin Abrasions (DC), Surgical Wound (DC), Wound Care (DC) Add. Discharge Instructions: LEAVE SURGICAL DRESSING IN PLACE APPLY ICE TO AREA AT 20 MINUTE INTERVALS CLEAN SKIN TEARS/ABRASIONS TWICE A DAY WITH ANTIBACTERIAL SOAP AND WATER, APPLY ANTIBIOTIC OINTMENT AND FRESH DRESSINGS TWICE A DAY CALL YOUR SURGEON IN THE MORNING FOR FOLLOW UP YOU MAY RESUME DIALYSIS TOMORROW All discharge instructions reviewed with patient and/or family. Voiced understanding. LARRY GONZALEZ DO August 21, 2016 00:45
[2016-08-21 00:50] LABS: INR 1.6 (0.8-1.4); PROTHROMBIN TIME PATIENT 18.3 SEC (12.2-14.7)
[2016-08-21 01:12] VITALS: BP 98/70
[2016-08-21] MEDS ORDERED: MUPIROCIN 2% OINT 22 GM (BACTROBAN) TUBE TOP SCH (09:00)
== END 2016-08-21 01:12 | disposition home or self-care (01) ==
LOC: EDUNIT# 00:21 → ER 00:23
DX: S50.812A Abrasion of left forearm, initial encounter (principal); S40.812A Abrasion of left upper arm, initial encounter; I12.0 Hypertensive chronic kidney disease with stage 5 chronic kidney disease or end stage renal disease; N18.6 End stage renal disease; H44.9 Unspecified disorder of globe; E11.9 Type 2 diabetes mellitus without complications; I48.2 Chronic atrial fibrillation; Z79.82 Long term (current) use of aspirin; Z79.899 Other long term (current) drug therapy; Z99.2 Dependence on renal dialysis; Z98.890 Other specified postprocedural states; Z95.1 Presence of aortocoronary bypass graft; Z95.810 Presence of automatic (implantable) cardiac defibrillator; Z95.828 Presence of other vascular implants and grafts; W18.00XA Striking against unspecified object with subsequent fall, initial encounter; Y92.010 Kitchen of single-family (private) house as the place of occurrence of the external cause; Y99.8 Other external cause status
CPT/HCPCS: 36415; 85027; 85610; 85730

== ENCOUNTER 2016-08-29 08:38 | Outpatient (RCR) | payer MEDICARE ==
[~2016-08-29 08:38] MED LIST changes: +DCL250C PO; +LEVO250T46 PO; +SERT50TA9 PO
== END 2016-08-29 13:11 | disposition home or self-care (01) ==
LOC: WOUNDCARE 08:38
PROVIDERS: ATTEND Surgery
DX: L97.211 Non-pressure chronic ulcer of right calf limited to breakdown of skin (principal); L97.221 Non-pressure chronic ulcer of left calf limited to breakdown of skin; I87.333 Chronic venous hypertension (idiopathic) with ulcer and inflammation of bilateral lower extremity; I89.0 Lymphedema, not elsewhere classified; I50.9 Heart failure, unspecified; N18.6 End stage renal disease
CPT/HCPCS: 29581; 99212

== ENCOUNTER 2016-10-16 15:27 | Outpatient (RCR) | payer MEDICARE | END 2016-10-27 16:00 | disposition home or self-care (01) | LOC: WOUNDCARE 15:27 | PROVIDERS: ATTEND Surgery | DX: I89.0 Lymphedema, not elsewhere classified (principal); I87.333 Chronic venous hypertension (idiopathic) with ulcer and inflammation of bilateral lower extremity; I50.9 Heart failure, unspecified; N18.6 End stage renal disease | CPT/HCPCS: 11042; 99212; 99213 ==

== ENCOUNTER → 2016-10-29 | Outpatient (CLI) | payer MEDICARE | LOC: WOUNDCARE 10:26 | PROVIDERS: ATTEND Surgery | DX: I89.0 Lymphedema, not elsewhere classified (principal); I87.333 Chronic venous hypertension (idiopathic) with ulcer and inflammation of bilateral lower extremity; I50.9 Heart failure, unspecified; N18.6 End stage renal disease | CPT/HCPCS: 87070; 87075; 87077; 87186; 87205 ==

== ENCOUNTER → 2016-11-05 | Outpatient (CLI) | payer MEDICARE | LOC: WOUNDCARE 10:27 | PROVIDERS: ATTEND Surgery | DX: L97.212 Non-pressure chronic ulcer of right calf with fat layer exposed (principal); L97.222 Non-pressure chronic ulcer of left calf with fat layer exposed; I87.333 Chronic venous hypertension (idiopathic) with ulcer and inflammation of bilateral lower extremity; I89.0 Lymphedema, not elsewhere classified; I50.9 Heart failure, unspecified; N18.6 End stage renal disease | CPT/HCPCS: 11042; 11045 ==

== ENCOUNTER → 2016-11-12 | Outpatient (CLI) | payer MEDICARE | LOC: WOUNDCARE 10:26 | PROVIDERS: ATTEND Surgery | DX: L97.222 Non-pressure chronic ulcer of left calf with fat layer exposed (principal); L97.212 Non-pressure chronic ulcer of right calf with fat layer exposed; I87.333 Chronic venous hypertension (idiopathic) with ulcer and inflammation of bilateral lower extremity; I89.0 Lymphedema, not elsewhere classified; I50.9 Heart failure, unspecified; N18.6 End stage renal disease | CPT/HCPCS: 11042 ==

== ENCOUNTER → 2016-11-19 | Outpatient (CLI) | payer MEDICARE ==
[~2016-11-19] MED LIST changes: -METO-270 PO; +METO-387 PO
== END ==
LOC: WOUNDCARE 12:37
PROVIDERS: ATTEND Surgery
DX: L97.222 Non-pressure chronic ulcer of left calf with fat layer exposed (principal); I87.333 Chronic venous hypertension (idiopathic) with ulcer and inflammation of bilateral lower extremity; I70.242 Atherosclerosis of native arteries of left leg with ulceration of calf; I89.0 Lymphedema, not elsewhere classified; I50.9 Heart failure, unspecified; N18.6 End stage renal disease
CPT/HCPCS: 11042

== ENCOUNTER → 2016-11-25 | Outpatient (CLI) | payer MEDICARE ==
[~2016-11-25] MED LIST changes: +METO-270 PO; -METO-387 PO
--- NOTE | 2016-11-25 15:48 | Diagnostic Imaging Report ---
INDICATION: Increased cough. Shortness of air. COMPARISON: 07/12/2016 FINDINGS: Single frontal radiographic view of the chest was obtained and demonstrates stable mild to moderate cardiomegaly and mild pulmonary vascular congestion. Lungs also show persistent diffuse prominence of the interstitium. There is hyperinflation with flattening of the hemidiaphragms. Small bibasilar effusions are also suspected. Overall, aeration is stable. There is no pneumothorax. Left-sided AICD and sternotomy wires are noted. There is new right-sided internal jugular central venous catheter with tip extending into the right atrium. IMPRESSION: 1. New right internal jugular central venous catheter as described above. 2. Otherwise, stable exam of the chest showing cardiomegaly and findings suspicious for underlying CHF including interstitial pulmonary edema. 3. Probable small bibasilar effusions. Dictated by: Dictated on workstation # [id number]
== END ==
LOC: RAD 14:58
PROVIDERS: ATTEND Nurse Practitioner
DX: I51.7 Cardiomegaly (principal); Z95.9 Presence of cardiac and vascular implant and graft, unspecified; R06.02 Shortness of breath; R05 Cough
CPT/HCPCS: 71020

== ENCOUNTER → 2016-12-03 | Outpatient (CLI) | payer MEDICARE ==
[~2016-12-03] MED LIST changes: -METO-270 PO; +METO-387 PO
== END ==
LOC: WOUNDCARE 10:21
PROVIDERS: ATTEND Surgery
DX: L97.222 Non-pressure chronic ulcer of left calf with fat layer exposed (principal); L97.221 Non-pressure chronic ulcer of left calf limited to breakdown of skin; I87.333 Chronic venous hypertension (idiopathic) with ulcer and inflammation of bilateral lower extremity; I70.242 Atherosclerosis of native arteries of left leg with ulceration of calf; I89.0 Lymphedema, not elsewhere classified; I50.9 Heart failure, unspecified; N18.6 End stage renal disease; L97.212 Non-pressure chronic ulcer of right calf with fat layer exposed
CPT/HCPCS: 11042; 97597

== ENCOUNTER → 2016-12-15 | Outpatient (CLI) | payer MEDICARE ==
[~2016-12-15] MED LIST changes: +METO-270 PO; -METO-387 PO
== END ==
LOC: WOUNDCARE 09:57
PROVIDERS: ATTEND Surgery
DX: I87.323 Chronic venous hypertension (idiopathic) with inflammation of bilateral lower extremity (principal); I70.242 Atherosclerosis of native arteries of left leg with ulceration of calf; I89.0 Lymphedema, not elsewhere classified; I50.9 Heart failure, unspecified; N18.6 End stage renal disease
CPT/HCPCS: 99212

== ENCOUNTER → 2016-12-18 | Outpatient (CLI) | payer MEDICARE | LOC: LAB 08:53 | PROVIDERS: ATTEND Internal Medicine Nephrology | DX: A04.7 Enterocolitis due to Clostridium difficile (principal) | CPT/HCPCS: 87324; 87328; 87329; 87449 ==

== ENCOUNTER 2017-01-10 19:11 | Emergency (ER) | payer MEDICARE ==
[~2017-01-10] VITALS: Ht 172.7 cm; Wt 98.1 kg
--- NOTE | 2017-01-10 19:26 | ED Dyspnea ---
General Stated Complaint: RESP DISTRESS Source of Information: Patient (SOMEWHAT LIMITED HISTORIAN), EMS, Family ( DAUGHTER AND ), Spouse History of Present Illness Time Seen by Provider: 19:13 Initial Comments PT ARRIVES VIA EMS FROM HOME C/O SHORTNESS OF BREATH, ESPECIALLY ON ANY EXERTION PT HAS CHRONIC SHORTNESS OF BREATH, AND O2 SATS NORMALLY 92-93% ON 4L/NC AT HOME , PER EMS AND FAMILY LATER VERIFIES THIS EMS REPORT THAT O2 SAT WAS 77% ON 4L/NC AT SCENE, UP TO 96% ON 6L/NC EMS REPORTS THAT FAMILY STATES HIS NORMAL BP IS 82/54, AND FAMILY VERIFIES THIS WHEN THEY ARRIVE EMS REPORT TEMP 100 AT SCENE--PT UNAWARE THAT HE HAD TEMP ACCUCHECK 87 BY EMS PT STATES HE HAS HAD A PRODUCTIVE COUGH--UNKNOWN COLOR SPUTUM, FOR UNKNOWN LENGTH OF TIME PT HAS COPD, CHF/FLUID OVERLOAD AND IS ON DIALYSIS--PT HAD FULL DIALYSIS TODAY-- UNKNOWN HOW MUCH FLUID HE HAD TAKEN OFF TODAY-- ARRIVES LATER AND STATES THAT THEY ONLY TOOK 4 LBS OFF TODAY, AND NORMALLY TAKES OFF 5-6 LBS PT ALSO WITH HISTORY OF CAD AND CARDIOMYOPATHY PCP: DR. GALLARDO LACROSSE PLAYER: DR. KRAUSE SHOT COAT TENDER: DR. Walker" AT [facility] Allergies and Home Medications Allergies Coded Allergies: No Known Drug Allergies (Verified , 02/14/09) Home Medications Amiodarone HCl 200 Mg Tablet, 200 MG PO 1700, (Reported) Aspirin 81 Mg Tabec, 81 MG PO HS, (Reported) Atorvastatin Calcium 10 Mg Tablet, 10 MG PO Q48H, (Reported) Dabigatran Etexilate Mesylate 75 Mg Capsule, 75 MG PO 0700,1700, (Reported) Dicloxacillin Sodium 250 Mg Cap, 250 MG PO, (Reported) Levofloxacin 250 Mg Tablet, 250 MG PO DAILY, (Reported) Metoprolol Succinate 25 Mg Tab.er.24h, 12.5 MG PO DAILY, (Reported) TAKES 1/2 (25MG) TABLET on Thursday, Thursday, Thursday et Thursday. Not on dialysis days Sertraline HCl 50 Mg Tablet, 50 MG PO DAILY, (Reported) Constitutional: see HPI, fever Respiratory: see HPI, cough, dyspnea on exertion, orthopnea, phlegm, short of breath Cardiovascular: No chest pain, edema Genitourinary: see HPI Musculoskeletal: no symptoms reported Skin: no symptoms reported Past Nhnesrr-Uhazas-Pedfnf Hx Patient Social History Alcohol Use: Denies Use Recreational Drug Use: No Smoking Status: Former Smoker Type Used: Cigarettes Former Smoker, Quit: Feb 25, 1997 Recent Hopitalizations: Yes Immunizations Up To Date Tetanus Booster (TDap): Less than 5yrs PED Vaccines UTD: No Date of Pneumonia Vaccine: Dec 27, 2015 Date of Influenza Vaccine: Dec 27, 2015 Seasonal Allergies Seasonal Allergies: No Surgeries History of Surgeries: Yes (PORT FOR CHEMO, THEN REMOVED; 4 VESSEL BYPASS; A/V GRAFT-FISTULA PLACEMENT LEFT ARM-PLACED 08/20/16 AT [facility]; RIGHT CENTRAL LINE FOR DIALYSIS) Surgeries: Cardiac, CABG, Defibrillator, Dialysis, Pacemaker, Vascular Surgery Respiratory History of Respiratory Disorde: Yes (CHRONIC DYSPNEA; O2 AT 4L/NC CONTINUOUSLY) Respiratory Disorders: Sleep Apnea, COPD Currently Using CPAP: No Currently Using BIPAP: No Cardiovascular History of Cardiac Disorders: Yes (PACEMAKER/DEFIBRILLATOR, CHF) Cardiac Disorders: Atrial Fibrillation, Cardiomyopathy, Chronic Edema/Swelling , Coronary Artery Disease, High Cholesterol, Hypertension Neurological History of Neurological Disord: Yes Neurological Disorders: Vertigo Reproductive System Hx Reproductive Disorders: No Genitourinary History of Genitourinary Disor: Yes Genitourinary Disorders: Renal Failure, Dialysis Gastrointestinal History of Gastrointestinal Di: No Musculoskeletal History of Musculoskeletal Dis: Yes Musculoskeletal Disorders: Chronic Back Pain Endocrine History of Endocrine Disorders: Yes Endocrine Disorders: Diabetes, Non-Insulin dep HEENT History of HEENT Disorders: Yes HEENT Disorders: Glaucoma Loss of Vision: Bilateral Hearing Impairment: Hard of Hearing 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 Type of Tx Receive: Chemotherapy Psychosocial History of Psychiatric Problem: No Integumentary History of Skin or Integumenta: Yes (CHRONIC LEG WOUNDS, AND LEG CELLULITIS) Blood Transfusions History of Blood Disorders: Yes (HX OF NON HODGKINS LYMPHOMA IN 1996) Adverse Reaction to a Blood Tr: No Family Medical History Family Medial History: Diabetes mellitus G8 BROTHER Prostate cancer G8 BROTHER Physical Exam Vital Signs Vital Sign - Last 12Hours 01/10/17 01/10/17 19:14 19:17 Temp 101.4 Pulse 85 Resp 27 B/P (MAP) 110/83 Pulse Ox 100 O2 Delivery NIV/Bilevel O2 Flow Rate 50.00 FiO2 50 Capillary Refill : General Appearance: No Apparent Distress, Obese Neck: Normal Inspection, No JVD Respiratory: No Accessory Muscle Use, No Respiratory Distress, Decreased Breath Sounds (IN BASES), Other (BECOMES SLIGHTLY DYSPNEIC WITH ANY MOVEMENTS, SUCH TRANSFERRING FROM EMS CART TO ER CART, CHANGING POSITION IN BED, ETC. ) Cardiovascular: Regular Rate, Rhythm, No Murmur, Other (UNABLE TO PALPATE PULSES DUE TO EDEMA AND WOUND DRESSINGS. ) Gastrointestinal: Non Tender, Soft, Other (ROTUND/FIRM) Extremity: Pedal Edema (2+ BILATERALLY, WITH LEGS WRAPPED) Neurologic/Psychiatric: Alert, Oriented x3, No Motor/Sensory Deficits, Normal Mood/Affect, Abnormal Cerebellar Tests Skin: Normal Color, Warm/Dry, Other (VERY WARM TO TOUCH AND FLUSHED; FAINT ERYTHEMA TO LEFT LOWER LEG. PT REPORTS MULTIPLE SORES TO BOTH LEGS AND FEET ARE DRESSED AND HAVE NEARLY COMPLETELY HEALED. NO DRAINAGE NOTED TO DRESSINGS. CHRONIC VENOUS STASIS CHANGES TO BILATERAL LOWER LEGS. ) Focused Exam Evaluation Lactate Level Laboratory Tests 01/10/17 19:17: Lactic Acid Level 1.83 Lactic Acid Level Laboratory Tests Test 01/10/17 19:17 Lactic Acid Level 1.83 MMOL/L (0.50-2.00) Progress/Results/Core Measures Results/Orders Lab Results Laboratory Tests Test 01/10/17 19:17 01/10/17 19:22 Range/Units White Blood Count 11.1 H 4.3-11.0 10^3/uL Red Blood Count 3.56 L 4.35-5.85 10^6/uL Hemoglobin 11.0 L 13.3-17.7 G/DL Hematocrit 35 L 40-54 % Mean Corpuscular Volume 97 80-99 FL Mean Corpuscular Hemoglobin 31 25-34 PG Mean Corpuscular Hemoglobin Concent 32 32-36 G/DL Red Cell Distribution Width 16.9 H 10.0-14.5 % Platelet Count 207 130-400 10^3/uL Mean Platelet Volume 11.1 H 7.4-10.4 FL Neutrophils (%) (Auto) 81 H 42-75 % Lymphocytes (%) (Auto) 7 L 12-44 % Monocytes (%) (Auto) 12 0-12 % Eosinophils (%) (Auto) 0 0-10 % Basophils (%) (Auto) 0 0-10 % Neutrophils # (Auto) 9.0 H 1.8-7.8 X 10^3 Lymphocytes # (Auto) 0.7 L 1.0-4.0 X 10^3 Monocytes # (Auto) 1.3 H 0.0-1.0 X 10^3 Eosinophils # (Auto) 0.0 0.0-0.3 10^3/uL Basophils # (Auto) 0.0 0.0-0.1 10^3/uL Neutrophils % (Manual) 71 % Lymphocytes % (Manual) 7 % Monocytes % (Manual) 16 % Eosinophils % (Manual) 1 % Basophils % (Manual) 0 % Band Neutrophils 5 % Blood Morphology Comment NORMAL Prothrombin Time 20.6 H 12.2-14.7 SEC INR Comment 1.8 H 0.8-1.4 Activated Partial Thromboplast Time 64 H 24-35 SEC Sodium Level 139 135-145 MMOL/L Potassium Level 4.0 3.6-5.0 MMOL/L Chloride Level 95 L 98-107 MMOL/L Carbon Dioxide Level 30 21-32 MMOL/L Anion Gap 14 5-14 MMOL/L Blood Urea Nitrogen 21 H 7-18 MG/DL Creatinine 2.62 H 0.60-1.30 MG/DL Estimat Glomerular Filtration Rate 24 BUN/Creatinine Ratio 8 Glucose Level 82 70-105 MG/DL Lactic Acid Level 1.83 0.50-2.00 MMOL/L Calcium Level 8.5 8.5-10.1 MG/DL Magnesium Level 2.2 1.8-2.4 MG/DL Total Bilirubin 1.4 H 0.1-1.0 MG/DL Aspartate Amino Transf (AST/SGOT) 46 H 5-34 U/L Alanine Aminotransferase (ALT/SGPT) 25 0-55 U/L Alkaline Phosphatase 207 H 40-136 U/L Troponin I < 0.30 <0.30 NG/ML Total Protein 7.2 6.4-8.2 GM/DL Albumin 3.0 L 3.2-4.5 GM/DL Blood Gas Puncture Site RT RAD Blood Gas Patient Temperature 100.5 Arterial Blood pH 7.48 H 7.37-7.43 Arterial Blood Partial Pressure CO2 43 35-45 MMHG Arterial Blood Partial Pressure O2 164 H 79-93 MMHG Arterial Blood HCO3 32 H 23-27 MMOL/L Arterial Blood Total CO2 32.7 H 21.0-31.0 MMOL/L Arterial Blood Oxygen Saturation 100 94-100 % Arterial Blood Base Excess 7.8 H -2.5-2.5 MMOL/L Herbert Test YES-POS Blood Gas Ventilator Setting NO Blood Gas Inspired Oxygen 50% Micro Results Microbiology 01/10/17 Influenza Types A,B Antigen (MARS) - Final, Complete My Orders Orders - LARRY GONZALEZ DO Saline Lock/Iv-Start (01/10/17 19:18) Ekg Tracing (01/10/17 19:18) O2 (01/10/17 19:18) Monitor-Rhythm Ecg Trace Only (01/10/17 19:18) Arterial Blood Gas (01/10/17 19:18) Cbc With Automated Diff (01/10/17 19:18) Comprehensive Metabolic Panel (01/10/17 19:18) Lactic Acid Analyzer (01/10/17 19:18) Magnesium (01/10/17 19:18) Protime With Inr (01/10/17 19:18) Partial Thromboplastin Time (01/10/17 19:18) Troponin I (01/10/17 19:18) Blood Culture (01/10/17 19:18) Influenza A And B Antigens (01/10/17 19:18) Chest 1 View, Ap/Pa Only (01/10/17 19:18) Rt Request For Service (01/10/17 19:18) Manual Differential (01/10/17 19:17) Piperacillin Sodium/Tazobactam (Zosyn Vi (01/10/17 20:45) Medications Given in ED Current Medications Medications Dose Ordered Sig/Ashley Route Start Time Stop Time Status Last Admin Dose Admin Piperacillin Sod/ Tazobactam Sod 4.5 gm/Sodium Chloride 100 ml @ 200 mls/hr ONCE ONCE IV 01/10/17 20:45 01/10/17 21:14 01/10/17 21:01 200 MLS/HR Vital Signs/I&O Vital Sign - Last 12Hours 01/10/17 01/10/17 01/10/17 19:14 19:17 19:17 Temp 101.4 Pulse 85 93 Resp 27 18 B/P (MAP) 110/83 Pulse Ox 100 100 100 O2 Delivery NIV/Bilevel NIV Bilevel O2 Flow Rate 50.00 FiO2 50 Progress Note : Progress Note INITIALLY PLACED ON CPAP ON ARRIVAL, AND O2 SATS REMAINED 100% AFTER RECEIVING ABG RESULTS. PT PLACED ON O2 AT 4L/NC AND O2 SATS REMAINED 95- 100% NO DETERIORATION IN PT'S CONDITION DURING ER STAY PT STATES HE FEELS BETTER AT TIME OF TRANSFER ECG Initial ECG Impression Time: 19:39 Initial ECG Rate: 112 Initial ECG Comparisson: Unchanged Comment 100% VENTRICULAR PACED Diagnostic Imaging Comments CXR--RIGHT PLEURAL EFFUSION, CARDIOMEGALY. INCREASING PULMONARY EDEMA, TRACE PLEURAL EFFUSION ON LEFT--PER RADIOLOGIST REPORT @ 2002 Reviewed: Reviewed by Me Departure Communication (Admissions) Progress Notes 2018--CALLED [facility] ONE CALL. [facility] HOSPITALIST, DR. WHATLEY. 2029--SPOKE WITH DR. WHATLEY, ACCEPTS PT FOR TRANSFER, DIRECT ADMIT TO TCU Impression Impression: Primary Impression: FLUID OVERLOAD IN DIALYSIS PATIENT Additional Impression: SUSPECTED PNEUMONIA WITH HYPOXIA Disposition: 02 XFER SHT-TRM HOSP Condition: Improved Departure-Patient Inst. Referrals: MITCH GALLARDO MD (PCP/Family) Primary Care Physician LARRY GONZALEZ DO Jan 10, 2017 19:26
[2017-01-10 19:30] LABS: BASOPHILS % (AUTO) 0 % (0-10); EOSINOPHILS % (AUTO) 0 % (0-10); LYMPHOCYTES # (AUTO) 0.7 X 10^3 (1.0-4.0); LYMPHOCYTES % (AUTO) 7 % (12-44); MEAN CORPUSCULAR HEMOGLOBIN 31 PG (25-34); MEAN CORPUSCULAR HGB CONC 32 G/DL (32-36); MEAN CORPUSCULAR VOLUME 97 FL (80-99); MEAN PLATELET VOLUME 11.1 FL (7.4-10.4); MONOCYTES # (AUTO) 1.3 X 10^3 (0.0-1.0); MONOCYTES % (AUTO) 12 % (0-12); NEUTROPHILS % (AUTO) 81 % (42-75); PLATELET COUNT 207 10^3/uL (130-400); RED BLOOD COUNT 3.56 10^6/uL (4.35-5.85); RED CELL DISTRIBUTION WIDTH 16.9 % (10.0-14.5); WHITE BLOOD COUNT 11.1 10^3/uL (4.3-11.0)
[2017-01-10 19:33] LABS: ABG BASE EXCESS 7.8 MMOL/L (-2.5-2.5); ABG HCO3 32 MMOL/L (23-27); ABG OXYGEN SATURATION 100 % (94-100); ABG PCO2 43 MMHG (35-45); ABG PH 7.48 (7.37-7.43); ABG PO2 164 MMHG (79-93); ABG TCO2 32.7 MMOL/L (21.0-31.0)
[2017-01-10 19:34] LABS: ALLENS TEST YES-POS; PATIENT TEMP 100.5
[2017-01-10 19:41] LABS: INR 1.8 (0.8-1.4); PROTHROMBIN TIME PATIENT 20.6 SEC (12.2-14.7)
[2017-01-10 19:52] LABS: ALANINE AMINOTRANSFERASE 25 U/L (0-55); ANION GAP 14 MMOL/L (5-14); ASPARTATE AMINO TRANSFERASE 46 U/L (5-34); BILIRUBIN,TOTAL 1.4 MG/DL (0.1-1.0); BLOOD UREA NITROGEN 21 MG/DL (7-18); BUN/CREATININE RATIO 8; CALCIUM 8.5 MG/DL (8.5-10.1); CARBON DIOXIDE 30 MMOL/L (21-32); CHLORIDE 95 MMOL/L (98-107); CREATININE SERUM 2.62 MG/DL (0.60-1.30); GFR ESTIMATED 24; GLUCOSE 82 MG/DL (70-105); MAGNESIUM 2.2 MG/DL (1.8-2.4); SODIUM 139 MMOL/L (135-145); TOTAL PROTEIN 7.2 GM/DL (6.4-8.2)
--- NOTE | 2017-01-10 19:55 | Diagnostic Imaging Report ---
INDICATION: Respiratory distress, fever COMPARISON: 11/25/16 FINDINGS: Single view of the chest demonstrates cardiac enlargement with increasing and/or new interstitial pulmonary edema. There is an enlarging effusion on the right. Trace effusion on the left. There is no pneumothorax. Pacemaker and central venous catheter are in good position. Sternal wires midline. IMPRESSION: Cardiac enlargement with interstitial pulmonary edema and moderate-sized effusion on the right, small effusion on the left. Dictated by: Dictated on workstation # [id number]
[2017-01-10 19:58] LABS: TROPONIN I < 0.30 NG/ML (<0.30)
[2017-01-10 20:02] LABS: BAND NEUTROPHILS 5 %; BASOPHILS % (MANUAL) 0 %; EOSINOPHILS % (MANUAL) 1 %; LYMPHOCYTES % (MANUAL) 7 %; NEUTROPHILS % (MANUAL) 71 %
[2017-01-10] MEDS ORDERED: PIPERACILLIN SODIUM/TAZOBACTAM 4.5 GM in NS (IVPB) 100 ML IV ONE (20:45)
[2017-01-10] MEDS ORDERED: ACETAMINOPHEN 500 MG TAB (TYLENOL) ONE (21:03)
[2017-01-10] MEDS ORDERED: ACETAMINOPHEN 500 MG TAB (TYLENOL) PO ONE (21:15)
[2017-01-10 21:25] VITALS: BP 100/67
== END 2017-01-10 21:25 | disposition short-term general hospital (02) ==
LOC: EDUNIT# 19:11 → ER 19:12
DX: E87.79 Other fluid overload (principal); J44.9 Chronic obstructive pulmonary disease, unspecified; G47.30 Sleep apnea, unspecified; I48.91 Unspecified atrial fibrillation; E78.00 Pure hypercholesterolemia, unspecified; C85.90 Non-Hodgkin lymphoma, unspecified, unspecified site; E11.22 Type 2 diabetes mellitus with diabetic chronic kidney disease; I13.2 Hypertensive heart and chronic kidney disease with heart failure and with stage 5 chronic kidney disease, or end stage renal disease; N18.6 End stage renal disease; I50.9 Heart failure, unspecified; I25.10 Atherosclerotic heart disease of native coronary artery without angina pectoris; I42.9 Cardiomyopathy, unspecified; Z79.82 Long term (current) use of aspirin; Z87.891 Personal history of nicotine dependence; Z80.42 Family history of malignant neoplasm of prostate; Z95.1 Presence of aortocoronary bypass graft; Z95.810 Presence of automatic (implantable) cardiac defibrillator; Z99.2 Dependence on renal dialysis
CPT/HCPCS: 36415; 71010; 80053; 82805; 83605; 83735; 84484; 85007; 85027; 85610; 85730; 87040; 87804; 93005; 93041

== ENCOUNTER → 2017-03-06 | Outpatient (CLI) | payer MEDICARE ==
[~2017-03-06] MED LIST changes: -METO-270 PO; +METO-387 PO
--- NOTE | 2017-03-06 11:48 | Diagnostic Imaging Report ---
EXAMINATION: Three views of the lumbar spine. INDICATION: Fall. FINDINGS: There is right convexity scoliosis of the lumbar spine. There is a transitional lumbosacral junction with partial lumbarization of S1 and prominent disc between S1 and S2 levels seen. There is endplate sclerotic changes at multiple levels and disc height narrowing along the concavity of the scoliotic curvature around the mid to lower lumbar spine levels. No definitive compression fracture although there is limitation to the evaluation related to the scoliosis. There are prominent sclerotic changes in the lower lumbar spine facet joints. Atherosclerotic prominent calcifications of the aorta and iliac vessels are seen. IMPRESSION: Scoliosis with prominent degenerative changes. Transitional lumbosacral junction with partial lumbarization of S1. No definite compression fracture but evaluation is somewhat limited due to the scoliosis. If symptoms persist, consider MRI evaluation. Dictated by: Dictated on workstation # [id number]
--- NOTE | 2017-03-06 12:13 | Diagnostic Imaging Report ---
Three views of the thoracic spine. INDICATION: Fall. Back pain. FINDINGS: The alignment of the posterior spinal line is satisfactory. The vertebral body heights appear preserved. Mild degenerative changes with anterior osteophytes are seen in the mid to lower from thoracic spine levels. Sternotomy wires, pacemaker leads, cardiomegaly and vascular congestion are suggested. There is also suggestion of a [id number]-[id number] effusion in the right side. IMPRESSION: No compression fracture seen. Cardiomegaly with vascular congestion and [id number] right effusion is suggested. Dictated by: Dictated on workstation # [id number]
== END ==
LOC: RAD 10:14
PROVIDERS: ATTEND Physician Assistant
DX: M41.26 Other idiopathic scoliosis, lumbar region (principal); M47.816 Spondylosis without myelopathy or radiculopathy, lumbar region; M54.6 Pain in thoracic spine; W19.XXXA Unspecified fall, initial encounter
CPT/HCPCS: 72072; 72100

== ENCOUNTER → 2017-03-18 | Outpatient (CLI) | payer MEDICARE ==
--- NOTE | 2017-03-18 11:50 | Diagnostic Imaging Report ---
EXAMINATION: PA and lateral views of the chest. INDICATION: Cough. FINDINGS: There is moderate enlargement of the heart. There is pulmonary vascular congestion with bibasilar infiltrates or atelectasis as well as a moderate effusion on the right side and a small effusion on the left. Sternotomy wires and a cardiac pacer with two leads are seen. No pneumothorax. IMPRESSION: Findings are likely secondary to CHF. Dictated by: Dictated on workstation # [id number]
== END ==
LOC: RAD 11:23
PROVIDERS: ATTEND Internal Medicine
DX: R05 Cough (principal)
CPT/HCPCS: 71020

== ENCOUNTER 2017-04-18 05:39 | Emergency (ER) | payer MEDICARE ==
[~2017-04-18] VITALS: Ht 172.7 cm; Wt 80.7 kg
--- OUTSIDE RECORDS SUMMARY | 2017-04-18 05:53 | XMS REPORT | Continuity of Care Document ---
Author Author [facility] Organization [facility] Address Unknown Phone Unavailable Allergies Active Description Code Type Severity Reaction Onset Reported/Identified Relationship to Patient Clinical Status Yes No Known Drug Allergies [id number] Drug Allergy Unknown N/A 02/14/2009 Medications There is no data. 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 02/26/1599 ANDREW CHAPMAN MD Ot J44.9 CHRONIC OBSTRUCTIVE PULMONARY DISEASE, U 02/26/1599 ANDREW CHAPMAN MD Ot L97.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 02/26/1599 ANDREW CHAPMAN MD Ot L97.221 NON-PRS CHRONIC ULCER OF LEFT CALF LIMIT 02/26/1599 ANDREW CHAPMAN MD Ot N18.9 CHRONIC KIDNEY DISEASE, UNSPECIFIED 02/26/1599 ANDREW CHAPMAN MD, Ot I50.20 UNSPECIFIED SYSTOLIC (CONGESTIVE) HEART 02/26/1599 ANDREW CHAPMAN MD Ot I87.331 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 02/26/1599 ANDREW CHAPMAN MD, Ot J44.9 CHRONIC OBSTRUCTIVE PULMONARY DISEASE, U 02/26/1599 ANDREW CHAPMAN MD Ot L97.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 02/26/1599 ADELA RAND, ANDREW Mitchell Ot N18.9 CHRONIC KIDNEY DISEASE, UNSPECIFIED 10/03/2010 Ot 272.4 HYPERLIPIDEMIA NEC/NOS 10/03/2010 Ot 274.9 GOUT NOS 10/03/2010 Ot 278.00 OBESITY, NOS 10/03/2010 Ot 365.9 GLAUCOMA NOS 10/03/2010 Ot 414.01 CORONARY ATHEROSCLEROSIS OF [place] CORON 10/03/2010 Ot 414.02 CORON ATHEROSCLEROSIS AUTOLOG VEIN BYPAS 10/03/2010 Ot 414.2 CHRONIC TOTAL OCCLUSION OF CORONARY [place] 10/03/2010 Ot 414.8 CHR ISCHEMIC HRT DIS NEC 10/03/2010 Ot 427.1 PAROX VENTRIC TACHYCARD 10/03/2010 Ot 427.31 ATRIAL FIBRILLATION 10/03/2010 Ot 428.0 CONGESTIVE HEART FAILURE NOS 10/03/2010 Ot 428.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 10/03/2010 Ot 585.9 CHRONIC KIDNEY DISEASE, UNSPECIFIED 10/03/2010 Ot V10.79 HX- LYMPHATIC MALIGN NEC 10/03/2010 Ot V45.81 AORTOCORONARY BYPASS 10/03/2010 Ot V46.2 SUPPLEMENTAL OXYGEN 10/03/2010 Ot V58.69 OTH MED,LT, CURRENT USE 10/03/2010 Ot V85.37 BODY MASS INDEX 37.0-37.9, ADULT 10/09/2010 Ot 272.4 HYPERLIPIDEMIA NEC/NOS 10/09/2010 Ot 278.00 OBESITY, NOS 10/09/2010 Ot 365.9 GLAUCOMA NOS 10/09/2010 Ot 414.01 CORONARY ATHEROSCLEROSIS OF [place] CORON 10/09/2010 Ot 414.8 CHR ISCHEMIC HRT DIS NEC 10/09/2010 Ot 424.0 MITRAL VALVE DISORDER 10/09/2010 Ot 427.31 ATRIAL FIBRILLATION 10/09/2010 Ot 428.0 CONGESTIVE HEART FAILURE NOS 10/09/2010 Ot 428.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 10/09/2010 Ot 585.9 CHRONIC KIDNEY DISEASE, UNSPECIFIED 10/09/2010 Ot V10.79 HX- LYMPHATIC MALIGN NEC 10/09/2010 Ot V45.81 AORTOCORONARY BYPASS 10/09/2010 Ot V46.2 SUPPLEMENTAL OXYGEN 10/09/2010 Ot V58.69 OTH MED,LT, CURRENT USE 10/09/2010 Ot V85.37 BODY MASS INDEX 37.0-37.9, ADULT 04/28/2011 Ot 250.00 DIAB [place] WO COMPL, TYPE II OR UNSPEC TY 04/28/2011 Ot 272.4 HYPERLIPIDEMIA NEC/NOS 04/28/2011 Ot 278.00 OBESITY, NOS 04/28/2011 Ot 414.01 CORONARY ATHEROSCLEROSIS OF [place] CORON 04/28/2011 Ot 427.31 ATRIAL FIBRILLATION 04/28/2011 Ot 428.0 CONGESTIVE HEART FAILURE NOS 04/28/2011 Ot 428.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 04/28/2011 Ot 585.9 CHRONIC KIDNEY DISEASE, UNSPECIFIED 04/28/2011 Ot 780.8 GENERALIZED HYPERHIDROSIS 04/28/2011 Ot V45.81 AORTOCORONARY BYPASS 04/28/2011 Ot V58.61 ANTICOAGULANTS,LT,CURRENT USE 04/28/2011 Ot V58.69 OTH MED,LT, CURRENT USE 04/28/2011 Ot V85.38 BODY MASS INDEX 38.0-38.9, ADULT 10/13/2012 HELADIO SALES MD Ot 250.60 DIAB W NEURO MANIFEST, TYPE II OR UNSPEC 10/13/2012 HELADIO SALES MD Ot 272.4 HYPERLIPIDEMIA NEC/NOS 10/13/2012 HELADIO SALES MD Ot 278.00 OBESITY, NOS 10/13/2012 HELADIO SALES MD Ot 357.2 NEUROPATHY IN DIABETES 10/13/2012 HELADIO SALES MD Ot 403.90 HYPTNSV CHR KID DIS, UNSPEC, W CHR KD ST 10/13/2012 HELADIO SALES MD Ot 412 OLD MYOCARDIAL INFARCT 10/13/2012 HELADIO SALES MD Ot 414.00 CORON ATHEROSCLER NOS TYPE VESSEL, NATIV 10/13/2012 HELADIO SALES MD Ot 414.8 CHR ISCHEMIC HRT DIS NEC 10/13/2012 HELADIO SALES MD Ot 427.31 ATRIAL FIBRILLATION 10/13/2012 HELADIO SALES MD Ot 428.0 CONGESTIVE HEART FAILURE NOS 10/13/2012 HELADIO SALES MD Ot 428.23 ACUTE CHRONIC SYSTOLIC HRT FAILURE 10/13/2012 HELADIO SALES MD Ot 454.1 LEG VARICOSITY W INFLAM 10/13/2012 HELADIO SALES MD Ot 585.3 CHRONIC KIDNEY DISEASE, STAGE III (MODER 10/13/2012 HELADIO SALES MD Ot V10.79 HX-LYMPHATIC MALIGN NEC 10/13/2012 HELADIO SALES MD Ot V45.02 AUTO IMPLANTABLE CARDIAC DEFIBRILLATOR I 10/13/2012 HELADIO SALES MD Ot V45.81 AORTOCORONARY BYPASS 10/13/2012 HELADIO SALES MD Ot V85.37 BODY MASS INDEX 37.0-37.9, ADULT 11/17/2012 HELADIO SALES MD Ot 454.1 LEG VARICOSITY W INFLAM 03/12/2013 HELADIO SALES MD Ot 840.9 SPRAIN SHOULDER/ARM NOS 03/12/2013 HELADIO SALES MD Ot 959.2 SHLDR/UPPER ARM INJ NOS 03/12/2013 HELADIO SALES MD Ot E000.8 OTHER EXTERNAL CAUSE STATUS 03/12/2013 HELADIO SALES MD Ot E001.0 ACTIVITIES INVOLVING WALKING, MARCHING A 03/12/2013 HELADIO SALES MD Ot E849.[address] NEC 03/12/2013 HELADIO SALES MD Ot E885.9 FALL FROM SLIPPING, TRIPPING, OR STUMBLI 06/09/2014 Ot 327.24 IDIOPATH SLEEP RELATED NON-OBSTRUC ALVEO 06/09/2014 Ot 496 CHR AIRWAY OBSTRUCT NEC 06/29/2014 Ot 278.00 06/29/2014 Ot 414.00 06/29/2014 Ot 414.8 06/29/2014 Ot 428.0 06/29/2014 Ot 496 06/29/2014 Ot 780.57 06/29/2014 Ot 786.09 07/07/2014 Ot 278.00 07/07/2014 Ot 414.00 07/07/2014 Ot 414.8 07/07/2014 Ot 428.0 07/07/2014 Ot 496 07/07/2014 Ot 780.57 07/07/2014 Ot 786.09 07/27/2014 LORENA RENE DO Ot 278.00 07/27/2014 LORENA RENE DO Ot 414.00 07/27/2014 LORENA RENE DO Ot 414.8 07/27/2014 LORENA RENE DO Ot 428.0 07/27/2014 LORENA RENE DO Ot 429.3 07/27/2014 LORENA RENE DO Ot 585.3 07/27/2014 LORENA RENE DO Ot 729.81 08/01/2014 LORENA RENE DO Ot 278.00 08/01/2014 LORENA RENE DO Ot 780.57 08/01/2014 LORENA RENE DO Ot 786.09 08/18/2014 LORENA RENE DO Ot 278.00 08/18/2014 LORENA RENE DO Ot 414.00 08/18/2014 LORENA RENE DO Ot 414.8 08/18/2014 ANJU MULLEN LORENA Mcrae Ot 428.0 08/18/2014 LORENA RENE DO Ot 429.3 08/18/2014 LORENA RENE DO Ot 585.3 08/18/2014 ANJU LORENA Mcrae Ot 729.81 08/18/2014 ANJU LORENA MULLEN Ot 278.00 08/18/2014 ANJU LORENA MULLEN Ot 780.57 08/18/2014 ANJU LORENA Mcrae Ot 786.09 11/02/2014 LARRY GONZALEZ DO Ot 250.00 DIAB [place] WO COMPL, TYPE II OR UNSPEC TY 11/02/2014 LARRY GONZALEZ DO Ot 272.0 PURE HYPERCHOLESTEROLEM 11/02/2014 LARRY GONZALEZ DO Ot 401.9 HYPERTENSION NOS 11/02/2014 LARRY GONZALEZ DO Ot 414.00 CORON ATHEROSCLER NOS TYPE VESSEL, NATIV 11/02/2014 LARRY GONZALEZ DO Ot 427.31 ATRIAL FIBRILLATION 11/02/2014 LARRY GONZALEZ DO Ot 787.3 FLATUL/ERUCTAT/GAS PAIN 11/02/2014 LARRY GONZALEZ DO Ot 787.91 DIARRHEA 11/02/2014 LARRY GONZALEZ DO Ot 789.09 ABDOMINAL PAIN, OTHER SPECIFIED SITE 11/02/2014 LRARY GONZALEZ DO Ot V58.61 ANTICOAGULANTS,LT,CURRENT USE 11/02/2014 LARRY GONZALEZ DO Ot V58.69 OTH MED,LT,CURRENT USE 11/06/2014 LARRY GONZALEZ DO Ot 787.91 11/07/2014 ALRRY GONZALEZ DO Ot 787.91 11/21/2014 LORENA RENE DO Ot 278.00 11/21/2014 LORENA RENE DO Ot 496 11/21/2014 LORENA RENE DO Ot 585.3 11/21/2014 LORENA RENE DO Ot 780.57 11/21/2014 LORENA RENE DO Ot 786.09 11/24/2014 ANJU MULLEN LORENA M Ot 278.00 11/24/2014 LORENA RENE DO Ot 496 11/24/2014 LORENA RENE DO Ot 585.3 11/24/2014 LORENA RENE DO Ot 780.57 11/24/2014 ANJU MULLEN LORENA M Ot 786.09 12/19/2014 CARLOS MULLEN LARRY Imelda Ot 787.91 12/27/2014 LORENA RENE DO Ot 278.00 OBESITY, NOS 12/27/2014 LORENA RENE DO Ot 496 CHR AIRWAY OBSTRUCT NEC 12/27/2014 LORENA RENE DO Ot 585.3 CHRONIC KIDNEY DISEASE, STAGE III (MODER 12/27/2014 LORENA RENE DO Ot 780.57 UNSPECIFIED SLEEP APNEA 12/27/2014 LORENA RENE DO Ot 786.09 RESPIRATORY ABNORM NEC 12/27/2014 LARRY GONZALEZ DO Ot 787.91 DIARRHEA 12/31/2014 SAMI RAND, CATERINA Viveros Ot S40.011A CONTUSION OF RIGHT SHOULDER, INITIAL ENC 12/31/2014 CATERINA GALLARDO MD Ot S46.011A STRAIN OF MUSC/TEND THE ROTATOR CUFF OF 12/31/2014 CATERINA GALLARDO MD Ot S49.91XA UNSP INJURY OF RIGHT SHOULDER AND UPPER 12/31/2014 CATERINA GALLARDO MD Ot W19.XXXA UNSPECIFIED FALL, INITIAL ENCOUNTER 12/31/2014 CATERINA GALLARDO MD Ot Y99.8 OTHER EXTERNAL CAUSE STATUS 01/04/2015 LORENA RENE DO Ot 278.00 01/04/2015 LORENA RENE DO Ot 496 01/04/2015 LORENA RENE DO Ot 585.3 01/04/2015 LORENA RENE DO Ot 780.57 01/04/2015 LORENA RENE DO Ot 786.09 01/05/2015 LORENA RENE DO Ot 278.00 01/05/2015 LORENA RENE DO Ot 496 01/05/2015 LORENA RENE DO Ot 585.3 01/05/2015 LORENA RENE DO Ot 780.57 01/05/2015 LORENA RENE DO Ot 786.09 01/05/2015 LORENA RENE DO Ot 278.00 01/05/2015 LORENA RENE DO Ot 496 01/05/2015 LORENA RENE DO Ot 585.3 01/05/2015 LORENA RENE DO Ot 780.57 01/05/2015 LORENA RENE DO Ot 786.09 02/02/2015 DEDRA WADSWORTH APRN Ot S46.011A STRAIN OF MUSC/TEND THE ROTATOR CUFF OF 02/02/2015 DEDRA WADSWORTH APRN Ot W19.XXXD UNSPECIFIED FALL, SUBSEQUENT ENCOUNTER 02/02/2015 DEDRA WADSWORTH APRN Ot Y99.8 OTHER EXTERNAL CAUSE STATUS 02/09/2015 NELIDA THOMASC, ALI FACP CCDS Ot E11.21 02/09/2015 NELIDA RAND FACC, ALI FACP CCDS Ot E11.65 02/09/2015 NELIDA RAND FACC, ALI FACP CCDS Ot G47.34 02/09/2015 NELIDA RAND FACC, ALI FACP CCDS Ot I25.10 02/09/2015 NELIDA RAND FACC, ALI FACP CCDS Ot I25.5 02/09/2015 NELIDA RAND FACC, ALI FACP CCDS Ot I50.9 02/09/2015 NELIDA THOMASC, ALI FACP CCDS Ot M79.89 02/09/2015 NELIDA THOMASC, ALI FACP CCDS Ot N18.3 02/09/2015 NELIDA RAND FACC, ALI FACP CCDS Ot R06.00 02/09/2015 NELIDA THOMASC, ALI FACP CCDS Ot Z79.01 02/09/2015 NELIDA RAND FACC, ALI FACP CCDS Ot Z79.899 02/09/2015 NELIDA THOMASC, ALI FACP CCDS Ot Z95.810 02/14/2015 NELIDA THOMASC, ALI FACP CCDS Ot E11.21 02/14/2015 NELIDA THOMASC, ALI FACP CCDS Ot E11.65 02/14/2015 NELIDA RAND FACC, ALI FACP CCDS Ot G47.34 02/14/2015 NELIDA RNAD FACC, ALI FACP CCDS Ot I25.10 02/14/2015 NELIDA RAND FACC, ALI FACP CCDS Ot I25.5 02/14/2015 NELIDA RAND FACC, ALI FACP CCDS Ot I50.9 02/14/2015 NELIDA RAND FACC, ALI FACP CCDS Ot M79.89 02/14/2015 NELIDA RAND FACC, ALI FACP CCDS Ot N18.3 02/14/2015 NELIDA RAND FACC, ALI FACP CCDS Ot R06.00 02/14/2015 NELIDA RAND FACC, ALI FACP CCDS Ot Z79.01 02/14/2015 NELIDA RAND FACC, ALI FACP CCDS Ot Z79.899 02/14/2015 NELIDA RAND FACC, ALI FACP CCDS Ot Z95.810 02/21/2015 MIKE REYES MD Ot E11.9 TYPE 2 DIABETES MELLITUS WITHOUT COMPLIC 02/21/2015 MIKE REYES MD Ot G47.33 OBSTRUCTIVE SLEEP APNEA (ADULT) (PEDIATR 02/21/2015 MIKE REYES MD Ot I12.9 HYPERTENSIVE CHRONIC KIDNEY DISEASE W ST 02/21/2015 MIKE REYES MD Ot I25.10 ATHSCL HEART DISEASE OF [place] CORONARY 02/21/2015 MIKE REYES MD Ot I25.5 ISCHEMIC CARDIOMYOPATHY 02/21/2015 MIKE REYES MD Ot I48.91 UNSPECIFIED ATRIAL FIBRILLATION 02/21/2015 MIKE REYES MD Ot I50.9 HEART FAILURE, UNSPECIFIED 02/21/2015 MIKE REYES MD Ot M10.9 GOUT, UNSPECIFIED 02/21/2015 MIKE REYES MD Ot N18.3 CHRONIC KIDNEY DISEASE, STAGE 3 (MODERAT 02/26/2015 MIKE REYES MD Ot E11.9 02/26/2015 MIKE REYES MD Ot G47.33 02/26/2015 MIKE REYES MD Ot I12.9 02/26/2015 MIKE REYES MD Ot I25.10 02/26/2015 ERIC RAND, MIKE M Ot I25.5 02/26/2015 ERIC RAND, MIKE M Ot I48.91 02/26/2015 ERIC RAND, MIKE M Ot I50.9 02/26/2015 ERIC RAND, MIKE Mcrae Ot M10.9 02/26/2015 ERIC RAND, MIKE Mcrae Ot N18.3 03/28/2015 LORENA RENE DO Ot 278.00 03/28/2015 LORENA RENE DO M Ot 496 03/28/2015 ANJU MULLEN LORENA M Ot 585.3 03/28/2015 ANJU MULLEN LORENA M Ot 780.57 03/28/2015 LORENA RENE DO M Ot 786.09 03/28/2015 LORENA RENE DO M Ot E66.9 OBESITY, UNSPECIFIED 03/28/2015 LORENA RENE DO M Ot G47.30 SLEEP APNEA, UNSPECIFIED 03/28/2015 LORENA RENE DO Ot J44.9 CHRONIC OBSTRUCTIVE PULMONARY DISEASE, U 03/28/2015 LORENA RENE DO M Ot N18.3 CHRONIC KIDNEY DISEASE, STAGE 3 (MODERAT 03/28/2015 LORENA RENE DO M Ot R06.00 DYSPNEA, UNSPECIFIED 06/14/2015 LORENA RENE DO M Ot E66.9 06/14/2015 LORENA RENE DO M Ot J43.9 06/14/2015 LORENA RENE DO M Ot K76.89 06/14/2015 LORENA RENE DO M Ot R06.00 06/14/2015 LORENA RENE DO M Ot R59.0 06/14/2015 LORENA RENE DO M Ot Z95.1 06/25/2015 LORENA RENE DO M Ot E66.9 06/25/2015 LORENA RENE DO M Ot J43.9 06/25/2015 LORENA RENE DO M Ot K76.89 06/25/2015 LORENA RENE DO M Ot R06.00 06/25/2015 LORENA RENE DO M Ot R59.0 06/25/2015 LORENA RENE DO M Ot Z95.1 07/02/2015 Ot G47.34 07/02/2015 Ot R06.02 07/02/2015 Ot R09.02 07/02/2015 Ot R91.1 07/04/2015 Ot G47.34 07/04/2015 Ot R06.02 07/04/2015 Ot R09.02 07/04/2015 Ot R91.1 07/20/2015 Ot G47.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 07/20/2015 Ot R06.02 SHORTNESS OF BREATH 07/20/2015 Ot R09.02 HYPOXEMIA 07/20/2015 Ot R91.1 SOLITARY PULMONARY NODULE 07/26/2015 Ot G47.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 07/26/2015 Ot R06.02 SHORTNESS OF BREATH 07/26/2015 Ot R09.02 HYPOXEMIA 07/26/2015 Ot R91.1 SOLITARY PULMONARY NODULE 12/31/2015 SHRUTHI ERICKSON TITLE [employer]ERG[employer] TEACHER Ot L03.115 CELLULITIS OF RIGHT LOWER LIMB 12/31/2015 SHRUTHI ERICKSON APRN Ot L97.811 NON-PRS CHR ULCER OTH PRT R LOW LEG LIMI 01/01/2016 SHRUTHI ERICKSON TITLE [employer] TEACHER Ot L03.115 CELLULITIS OF RIGHT LOWER LIMB 01/01/2016 SHRUTHI ERICKSON TITLE [employer] TEACHER Ot L97.811 NON-PRS CHR ULCER OTH PRT R LOW LEG LIMI 01/01/2016 SHRUTHI ERICKSON TITLE ONE [employer] TEACHER Ot L03.115 CELLULITIS OF RIGHT LOWER LIMB 01/01/2016 SHRUTHI ERICKSON TITLE ONE [employer] TEACHER Ot L97.811 NON-PRS CHR ULCER OTH PRT R LOW LEG LIMI 02/26/2016 Ot 414.00 CORON ATHEROSCLER NOS TYPE VESSEL, NATIV 02/26/2016 Ot 414.8 CHR ISCHEMIC HRT DIS NEC 02/26/2016 Ot 427.31 ATRIAL FIBRILLATION 02/26/2016 Ot 428.0 CONGESTIVE HEART FAILURE NOS 02/26/2016 Ot 585.9 CHRONIC KIDNEY DISEASE, UNSPECIFIED 02/26/2016 Ot 786.09 RESPIRATORY ABNORM NEC 02/26/2016 Ot V58.61 ANTICOAGULANTS,LT,CURRENT USE 02/26/2016 Ot V72.63 PRE- PROCEDURAL LABORATORY EXAMINATION 02/26/2016 Ot V72.81 EXAM-PRE- OPERATIVE CARDIOVASCULAR 02/26/2016 Ot V72.83 EXAM PRE- OPERATIVE NEC 02/26/2016 Ot 440.20 ATHEROSCLEROSIS [place] ARTERIES EXTREMIT 02/26/2016 Ot 786.05 SHORTNESS OF BREATH 02/26/2016 RIVERA RAND, NÉSTOR Ramirez Ot 403.90 HYPTNSV CHR KID DIS, UNSPEC, W CHR KD ST 02/26/2016 RIVERA RAND, NÉSTOR Ramirez Ot 585.3 CHRONIC KIDNEY DISEASE, STAGE III (MODER 02/26/2016 Ot 278.00 OBESITY, NOS 02/26/2016 Ot 414.00 CORON ATHEROSCLER NOS TYPE VESSEL, NATIV 02/26/2016 Ot 414.8 CHR ISCHEMIC HRT DIS NEC 02/26/2016 Ot 428.0 CONGESTIVE HEART FAILURE NOS 02/26/2016 Ot 496 CHR AIRWAY OBSTRUCT NEC 02/26/2016 Ot 780.57 UNSPECIFIED SLEEP APNEA 02/26/2016 Ot 786.09 RESPIRATORY ABNORM NEC 02/26/2016 LORENA RENE DO Ot 278.00 OBESITY, NOS 02/26/2016 LORENA RENE DO Ot 414.00 CORON ATHEROSCLER NOS TYPE VESSEL, NATIV 02/26/2016 LORENA RENE DO Ot 414.8 CHR ISCHEMIC HRT DIS NEC 02/26/2016 LORENA RENE DO Ot 428.0 CONGESTIVE HEART FAILURE NOS 02/26/2016 LORENA RENE DO Ot 429.3 CARDIOMEGALY 02/26/2016 LORENA RENE DO Ot 585.3 CHRONIC KIDNEY DISEASE, STAGE III (MODER 02/26/2016 LORENA RENE DO Ot 729.81 SWELLING OF LIMB 02/26/2016 LORENA RENE DO Ot 278.00 OBESITY, NOS 02/26/2016 LORENA RENE DO Ot 780.57 UNSPECIFIED SLEEP APNEA 02/26/2016 LORENA RENE DO Ot 786.09 RESPIRATORY ABNORM NEC 02/26/2016 LORENA RENE DO Ot E66.9 OBESITY, UNSPECIFIED 02/26/2016 LORENA RENE DO Ot J43.9 EMPHYSEMA, UNSPECIFIED 02/26/2016 LORENA RENE DO Ot K76.89 OTHER SPECIFIED DISEASES OF LIVER 02/26/2016 LORENA RENE DO Ot R06.00 DYSPNEA, UNSPECIFIED 02/26/2016 LORENA RENE DO Ot R59.0 LOCALIZED ENLARGED LYMPH NODES 02/26/2016 LORENA RENE DO Ot Z95.1 PRESENCE OF AORTOCORONARY BYPASS GRAFT 02/26/2016 NELIDA RAND FACC, ALI FACP CCDS Ot E11.21 TYPE 2 DIABETES MELLITUS WITH DIABETIC N 02/26/2016 NELIDA RAND FACC, ALI FACP CCDS Ot E11.65 TYPE 2 DIABETES MELLITUS WITH HYPERGLYCE 02/26/2016 NELIDA RAND FACC, ALI FACP CCDS Ot G47.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 02/26/2016 NELIDA RAND FACC, ALI FACP CCDS Ot I25.10 ATHSCL HEART DISEASE OF [place] CORONARY 02/26/2016 NELIDA RAND FACC, ALI FACP CCDS Ot I25.5 ISCHEMIC CARDIOMYOPATHY 02/26/2016 NELIDA RAND FACC, ALI FACP CCDS Ot I50.9 HEART FAILURE, UNSPECIFIED 02/26/2016 NELIDA RAND FACC, ALI FACP CCDS Ot M79.89 OTHER SPECIFIED SOFT TISSUE DISORDERS 02/26/2016 NELIDA RAND FACC, ALI FACP CCDS Ot N18.3 CHRONIC KIDNEY DISEASE, STAGE 3 (MODERAT 02/26/2016 NELIDA RAND FACC, ALI FACP CCDS Ot R06.00 DYSPNEA, UNSPECIFIED 02/26/2016 NELIDA RAND FACC, ALI FACP CCDS Ot Z79.01 OUTREACH ASSISTANT (CURRENT) USE OF ANTICOAGULANT 02/26/2016 NELIDA RAND FACC, ALI FACP CCDS Ot Z79.899 OTHER OUTREACH ASSISTANT (CURRENT) DRUG THERAPY 02/26/2016 NELIDA RAND FACC, ALI FACP CCDS Ot Z95.810 PRESENCE OF AUTOMATIC (IMPLANTABLE) CARD 02/26/2016 LORENA RENE DO Ot 278.00 02/26/2016 LORENA RENE DO Ot 496 02/26/2016 LORENA RENE DO Ot 585.3 02/26/2016 LORENA RENE DO Ot 780.57 02/26/2016 LORENA RENE DO Ot 786.09 02/26/2016 Ot G47.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 02/26/2016 Ot R06.02 SHORTNESS OF BREATH 02/26/2016 Ot R09.02 HYPOXEMIA 02/26/2016 Ot R91.1 SOLITARY PULMONARY NODULE 02/27/2016 HENRRY RAND, HELADIO Segura Ot A41.9 SEPSIS, UNSPECIFIED ORGANISM 02/27/2016 HELADIO SALES MD Ot C85.90 NON-[place] LYMPHOMA, UNSPECIFIED, UNSPE 02/27/2016 HELADIO SALES MD Ot E11.9 TYPE 2 DIABETES MELLITUS WITHOUT COMPLIC 02/27/2016 HELADIO SALES MD Ot E66.01 MORBID (SEVERE) OBESITY DUE TO EXCESS CA 02/27/2016 HELADIO SALES MD Ot E78.00 PURE HYPERCHOLESTEROLEMIA, UNSPECIFIED 02/27/2016 HELADIO SALES MD Ot E87.2 ACIDOSIS 02/27/2016 HELADIO SALES MD Ot G47.30 SLEEP APNEA, UNSPECIFIED 02/27/2016 HELADIO SALES MD Ot H91.90 UNSPECIFIED HEARING LOSS, UNSPECIFIED EA 02/27/2016 HELADIO SALES MD Ot I12.9 HYPERTENSIVE CHRONIC KIDNEY DISEASE W ST 02/27/2016 HELADIO SALES MD Ot I25.10 ATHSCL HEART DISEASE OF [place] CORONARY 02/27/2016 HELADIO SALES MD Ot I25.5 ISCHEMIC CARDIOMYOPATHY 02/27/2016 HELADIO SALES MD Ot I48.91 UNSPECIFIED ATRIAL FIBRILLATION 02/27/2016 HELADIO SLAES MD Ot I87.2 VENOUS INSUFFICIENCY (CHRONIC) (PERIPHER 02/27/2016 HELADIO SALES MD Ot J18.9 PNEUMONIA, UNSPECIFIED ORGANISM 02/27/2016 HELADIO SALES MD Ot J44.0 CHRONIC OBSTRUCTIVE PULMON DISEASE W ACU 02/27/2016 HELADIO SALES MD Ot M54.9 DORSALGIA, UNSPECIFIED 02/27/2016 HELADIO SALES MD Ot N18.3 CHRONIC KIDNEY DISEASE, STAGE 3 (MODERAT 02/27/2016 HELADIO SALES MD Ot R65.20 SEVERE SEPSIS WITHOUT SEPTIC SHOCK 02/27/2016 HELADIO SALES MD Ot R79.1 ABNORMAL COAGULATION PROFILE 02/27/2016 HELADIO SALES MD Ot Z68.29 BODY MASS INDEX (BMI) 29.0-29.9, ADULT 02/27/2016 HELADIO SALES MD Ot Z79.01 OUTREACH ASSISTANT (CURRENT) USE OF ANTICOAGULANT 02/27/2016 HELADIO SALES MD Ot Z87.891 PERSONAL HISTORY OF NICOTINE DEPENDENCE 02/27/2016 HELADIO SALES MD Ot Z95.1 PRESENCE OF AORTOCORONARY BYPASS GRAFT 02/27/2016 HELADIO SALES MD Ot Z95.810 PRESENCE OF AUTOMATIC (IMPLANTABLE) CARD 02/27/2016 HELADIO SALES MD Ot Z99.81 DEPENDENCE ON SUPPLEMENTAL OXYGEN 02/28/2016 HELADIO SALES MD Ot A41.9 SEPSIS, UNSPECIFIED ORGANISM 02/28/2016 HELADIO SALES MD Ot C85.90 NON-[place]IN LYMPHOMA, UNSPECIFIED, UNSPE 02/28/2016 HELADIO SALES MD Ot E11.9 TYPE 2 DIABETES MELLITUS WITHOUT COMPLIC 02/28/2016 HELADIO SALES MD Ot E66.01 MORBID (SEVERE) OBESITY DUE TO EXCESS CA 02/28/2016 HELADIO SALES MD Ot E78.00 PURE HYPERCHOLESTEROLEMIA, UNSPECIFIED 02/28/2016 HELADIO SALES MD Ot E87.2 ACIDOSIS 02/28/2016 HELADIO SALES MD Ot G47.30 SLEEP APNEA, UNSPECIFIED 02/28/2016 HELADIO SALES MD Ot H91.90 UNSPECIFIED HEARING LOSS, UNSPECIFIED EA 02/28/2016 HELADIO SALES MD Ot I12.9 HYPERTENSIVE CHRONIC KIDNEY DISEASE W ST 02/28/2016 HELADIO SALES MD Ot I25.10 ATHSCL HEART DISEASE OF [place] CORONARY 02/28/2016 HELADIO SALES MD Ot I25.5 ISCHEMIC CARDIOMYOPATHY 02/28/2016 HELADIO SALES MD Ot I48.91 UNSPECIFIED ATRIAL FIBRILLATION 02/28/2016 HELADIO SALES MD Ot I87.2 VENOUS INSUFFICIENCY (CHRONIC) (PERIPHER 02/28/2016 HELADIO SALES MD Ot J18.9 PNEUMONIA, UNSPECIFIED ORGANISM 02/28/2016 HELADIO SALES MD Ot J44.0 CHRONIC OBSTRUCTIVE PULMON DISEASE W ACU 02/28/2016 HELADIO SALES MD Ot M54.9 DORSALGIA, UNSPECIFIED 02/28/2016 HELADIO SALES MD Ot N18.3 CHRONIC KIDNEY DISEASE, STAGE 3 (MODERAT 02/28/2016 HELADIO SALES MD Ot R65.20 SEVERE SEPSIS WITHOUT SEPTIC SHOCK 02/28/2016 HELADIO SALES MD Ot R79.1 ABNORMAL COAGULATION PROFILE 02/28/2016 HELADIO SALES MD, Ot Z68.29 BODY MASS INDEX (BMI) 29.0-29.9, ADULT 02/28/2016 HELADIO SALES MD, Ot Z79.01 FDC (CURRENT) USE OF ANTICOAGULANT 02/28/2016 HELADIO SALES MD, Ot Z87.891 PERSONAL HISTORY OF NICOTINE DEPENDENCE 02/28/2016 HELADIO SALES MD, Ot Z95.1 PRESENCE OF AORTOCORONARY BYPASS GRAFT 02/28/2016 HELADIO SALES MD, Ot Z95.810 PRESENCE OF AUTOMATIC (IMPLANTABLE) CARD 02/28/2016 HELADIO SALES MD, Ot Z99.81 DEPENDENCE ON SUPPLEMENTAL OXYGEN 02/28/2016 HELADIO SALES MD, Ot A41.9 SEPSIS, UNSPECIFIED ORGANISM 02/28/2016 HELADIO SALES MD, Ot C85.90 NON-[place] LYMPHOMA, UNSPECIFIED, UNSPE 02/28/2016 HELADIO SALES MD Ot E11.9 TYPE 2 DIABETES MELLITUS WITHOUT COMPLIC 02/28/2016 HELADIO SALES MD Ot E66.01 MORBID (SEVERE) OBESITY DUE TO EXCESS CA 02/28/2016 HELADIO SALES MD Ot E78.00 PURE HYPERCHOLESTEROLEMIA, UNSPECIFIED 02/28/2016 HELADIO SALES MD Ot E87.2 ACIDOSIS 02/28/2016 HELADIO SALES MD Ot G47.30 SLEEP APNEA, UNSPECIFIED 02/28/2016 HELADIO SALES MD Ot H91.90 UNSPECIFIED HEARING LOSS, UNSPECIFIED EA 02/28/2016 HELADIO SALES MD Ot I12.9 HYPERTENSIVE CHRONIC KIDNEY DISEASE W ST 02/28/2016 HELADIO SALES MD Ot I25.10 ATHSCL HEART DISEASE OF [place] CORONARY 02/28/2016 HELADIO SALES MD Ot I25.5 ISCHEMIC CARDIOMYOPATHY 02/28/2016 HELADIO SALES MD Ot I48.91 UNSPECIFIED ATRIAL FIBRILLATION 02/28/2016 HELADIO SALES MD Ot I87.2 VENOUS INSUFFICIENCY (CHRONIC) (PERIPHER 02/28/2016 HELADIO SALES MD, Ot J18.9 PNEUMONIA, UNSPECIFIED ORGANISM 02/28/2016 HELADIO SALES MD, Ot J44.0 CHRONIC OBSTRUCTIVE PULMON DISEASE W ACU 02/28/2016 HELADIO SALES MD Ot M54.9 DORSALGIA, UNSPECIFIED 02/28/2016 HELADIO SALES MD, Ot N18.3 CHRONIC KIDNEY DISEASE, STAGE 3 (MODERAT 02/28/2016 HELADIO SALES MD Ot R65.20 SEVERE SEPSIS WITHOUT SEPTIC SHOCK 02/28/2016 HELADIO SALES MD Ot R79.1 ABNORMAL COAGULATION PROFILE 02/28/2016 HELADIO SALES MD, Ot Z68.29 BODY MASS INDEX (BMI) 29.0-29.9, ADULT 02/28/2016 HELADIO SALES MD, Ot Z79.01 FDC (CURRENT) USE OF ANTICOAGULANT 02/28/2016 HELADIO SALES MD, Ot Z87.891 PERSONAL HISTORY OF NICOTINE DEPENDENCE 02/28/2016 HELADIO SALES MD, Ot Z95.1 PRESENCE OF AORTOCORONARY BYPASS GRAFT 02/28/2016 HELADIO SALES MD Ot Z95.810 PRESENCE OF AUTOMATIC (IMPLANTABLE) CARD 02/28/2016 HELADIO SALES MD Ot Z99.81 DEPENDENCE ON SUPPLEMENTAL OXYGEN 02/29/2016 HELADIO SALES MD Ot A41.9 SEPSIS, UNSPECIFIED ORGANISM 02/29/2016 HELADIO SALES MD Ot C85.90 NON-[place] LYMPHOMA, UNSPECIFIED, UNSPE 02/29/2016 HELADIO SALES MD Ot E11.9 TYPE 2 DIABETES MELLITUS WITHOUT COMPLIC 02/29/2016 HELADIO SALES MD Ot E66.01 MORBID (SEVERE) OBESITY DUE TO EXCESS CA 02/29/2016 HELADIO SALES MD Ot E78.00 PURE HYPERCHOLESTEROLEMIA, UNSPECIFIED 02/29/2016 HELADIO SALES MD Ot E87.2 ACIDOSIS 02/29/2016 HELADIO SALES MD Ot G47.30 SLEEP APNEA, UNSPECIFIED 02/29/2016 HELADIO SALES MD Ot H91.90 UNSPECIFIED HEARING LOSS, UNSPECIFIED EA 02/29/2016 HELADIO SALES MD Ot I12.9 HYPERTENSIVE CHRONIC KIDNEY DISEASE W ST 02/29/2016 HELADIO SALES MD Ot I25.10 ATHSCL HEART DISEASE OF [place] CORONARY 02/29/2016 HELADIO SALES MD Ot I25.5 ISCHEMIC CARDIOMYOPATHY 02/29/2016 HELADIO SALES MD Ot I48.91 UNSPECIFIED ATRIAL FIBRILLATION 02/29/2016 HELADIO SALES MD Ot I87.2 VENOUS INSUFFICIENCY (CHRONIC) (PERIPHER 02/29/2016 HELADIO SALES MD, Ot J18.9 PNEUMONIA, UNSPECIFIED ORGANISM 02/29/2016 HELADIO SALES MD, Ot J44.0 CHRONIC OBSTRUCTIVE PULMON DISEASE W ACU 02/29/2016 HELADIO SALES MD, Ot M54.9 DORSALGIA, UNSPECIFIED 02/29/2016 HELADIO SALES MD, Ot N18.3 CHRONIC KIDNEY DISEASE, STAGE 3 (MODERAT 02/29/2016 HELADIO SALES MD, Ot R65.20 SEVERE SEPSIS WITHOUT SEPTIC SHOCK 02/29/2016 HELADIO SALES MD, Ot R79.1 ABNORMAL COAGULATION PROFILE 02/29/2016 HELADIO SALES MD Ot Z68.29 BODY MASS INDEX (BMI) 29.0-29.9, ADULT 02/29/2016 HELADIO SALES MD Ot Z79.01 OUTREACH ASSISTANT (CURRENT) USE OF ANTICOAGULANT 02/29/2016 HELADIO SALES MD Ot Z87.891 PERSONAL HISTORY OF NICOTINE DEPENDENCE 02/29/2016 HELADIO SALES MD Ot Z95.1 PRESENCE OF AORTOCORONARY BYPASS GRAFT 02/29/2016 HELADIO SALES MD Ot Z95.810 PRESENCE OF AUTOMATIC (IMPLANTABLE) CARD 02/29/2016 HELADIO SALES MD Ot Z99.81 DEPENDENCE ON SUPPLEMENTAL OXYGEN 02/29/2016 HELADIO SALES MD Ot A41.53 SEPSIS DUE TO SERRATIA 02/29/2016 HELADIO SALES MD Ot C85.90 NON-[place]IN LYMPHOMA, UNSPECIFIED, UNSPE 02/29/2016 HELADIO SALES MD Ot E11.9 TYPE 2 DIABETES MELLITUS WITHOUT COMPLIC 02/29/2016 HELADIO SALES MD Ot E66.01 MORBID (SEVERE) OBESITY DUE TO EXCESS CA 02/29/2016 HELADIO SALES MD Ot E78.00 PURE HYPERCHOLESTEROLEMIA, UNSPECIFIED 02/29/2016 HELADIO SALES MD Ot E87.2 ACIDOSIS 02/29/2016 HELADIO SALES MD Ot G47.30 SLEEP APNEA, UNSPECIFIED 02/29/2016 HELADIO SALES MD Ot H91.90 UNSPECIFIED HEARING LOSS, UNSPECIFIED EA 02/29/2016 HELADIO SALES MD Ot I12.9 HYPERTENSIVE CHRONIC KIDNEY DISEASE W ST 02/29/2016 HELADIO SALES MD, Ot I25.10 ATHSCL HEART DISEASE OF [place] CORONARY 02/29/2016 HELADIO SALES MD, Ot I25.5 ISCHEMIC CARDIOMYOPATHY 02/29/2016 HELADIO SALES MD Ot I48.91 UNSPECIFIED ATRIAL FIBRILLATION 02/29/2016 HELADIO SALES MD, Ot 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 02/29/2016 HELADIO SALES MD Ot I87.2 VENOUS INSUFFICIENCY (CHRONIC) (PERIPHER 02/29/2016 HELADIO SALES MD, Ot J18.9 PNEUMONIA, UNSPECIFIED ORGANISM 02/29/2016 HELADIO SALES MD, Ot J44.0 CHRONIC OBSTRUCTIVE PULMON DISEASE W ACU 02/29/2016 HELADIO SALES MD, Ot M54.9 DORSALGIA, UNSPECIFIED 02/29/2016 HELADIO SALES MD, Ot N18.3 CHRONIC KIDNEY DISEASE, STAGE 3 (MODERAT 02/29/2016 HELADIO SALES MD Ot R79.1 ABNORMAL COAGULATION PROFILE 02/29/2016 HELADIO SALES MD Ot Z68.29 BODY MASS INDEX (BMI) 29.0-29.9, ADULT 02/29/2016 HELADIO SALES MD Ot Z79.01 OUTREACH ASSISTANT (CURRENT) USE OF ANTICOAGULANT 02/29/2016 HELADIO SALES MD Ot Z87.891 PERSONAL HISTORY OF NICOTINE DEPENDENCE 02/29/2016 HELADIO SALES MD Ot Z95.1 PRESENCE OF AORTOCORONARY BYPASS GRAFT 02/29/2016 HELADIO SALES MD Ot Z95.810 PRESENCE OF AUTOMATIC (IMPLANTABLE) CARD 02/29/2016 HELADIO SALES MD Ot Z99.81 DEPENDENCE ON SUPPLEMENTAL OXYGEN 03/03/2016 FELICIA KOWALSKI DO Ot A41.53 SEPSIS DUE TO SERRATIA 03/03/2016 FELICIA KOWALSKI DO Ot C85.90 NON-[place] LYMPHOMA, UNSPECIFIED, UNSPE 03/03/2016 FELICIA KOWALSKI DO Ot E11.21 TYPE 2 DIABETES MELLITUS WITH DIABETIC N 03/03/2016 FELICIA KOWALSKI DO Ot E66.01 MORBID (SEVERE) OBESITY DUE TO EXCESS CA 03/03/2016 MEGHANA MULLEN FELICIA Ot E78.00 PURE HYPERCHOLESTEROLEMIA, UNSPECIFIED 03/03/2016 MEGHANA MULLEN FELICIA Ot G47.30 SLEEP APNEA, UNSPECIFIED 03/03/2016 MEGHANA MULLEN FELICIA Ot H91.90 UNSPECIFIED HEARING LOSS, UNSPECIFIED EA 03/03/2016 MEGHANA MULLEN FELICIA Ot I12.9 HYPERTENSIVE CHRONIC KIDNEY DISEASE W ST 03/03/2016 FROYLAN KOWALSKI DOI Ot I25.10 ATHSCL HEART DISEASE OF [place] CORONARY 03/03/2016 MEGHANA MULLEN FELICIA Ot I25.5 ISCHEMIC CARDIOMYOPATHY 03/03/2016 MEGHANA MULLEN FELICIA Ot I48.0 PAROXYSMAL ATRIAL FIBRILLATION 03/03/2016 FROYLAN KOWALSKI DOI Ot 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 03/03/2016 FROYLAN KOWALSKI DOI Ot I87.2 VENOUS INSUFFICIENCY (CHRONIC) (PERIPHER 03/03/2016 FROYLAN KOWALSKI DOI Ot J18.9 PNEUMONIA, UNSPECIFIED ORGANISM 03/03/2016 FROYLAN KOWALSKI DOI Ot J44.0 CHRONIC OBSTRUCTIVE PULMON DISEASE W ACU 03/03/2016 MEGHANA MULLEN FELICIA Ot N18.3 CHRONIC KIDNEY DISEASE, STAGE 3 (MODERAT 03/03/2016 MEGHANA MULLEN FELICIA Ot Z68.29 BODY MASS INDEX (BMI) 29.0-29.9, ADULT 03/03/2016 FROYLAN KOWALSKI DOI Ot Z79.01 FDC (CURRENT) USE OF ANTICOAGULANT 03/03/2016 FROYLAN KOWALSKI DOI Ot Z87.891 PERSONAL HISTORY OF NICOTINE DEPENDENCE 03/03/2016 FELICIA KOWALSKI DO Ot Z95.1 PRESENCE OF AORTOCORONARY BYPASS GRAFT 03/03/2016 MEGHANA MULLEN FELICIA Ot Z95.810 PRESENCE OF AUTOMATIC (IMPLANTABLE) CARD 03/03/2016 MEGHANA MULLEN FELICIA Ot Z99.81 DEPENDENCE ON SUPPLEMENTAL OXYGEN 03/05/2016 ANDREW CHAPMAN MD Ot I50.20 UNSPECIFIED SYSTOLIC (CONGESTIVE) HEART 03/05/2016 ANDREW CHAPMAN MD Ot I70.232 ATHSCL [place] ARTERIES OF RIGHT LEG W UL 03/05/2016 ANDREW CHAPMAN MD Ot I70.242 ATHSCL [place] ARTERIES OF LEFT LEG W ULC 03/05/2016 ANDREW CAHPMAN MD Ot 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 03/05/2016 ANDREW CHAPMAN MD, Ot J44.9 CHRONIC OBSTRUCTIVE PULMONARY DISEASE, U 03/05/2016 ANRDEW CHAPMAN MD, Ot L97.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 03/05/2016 ANDREW CHAPMAN MD, Ot L97.221 NON-PRS CHRONIC ULCER OF LEFT CALF LIMIT 03/05/2016 ANDREW CHAPMAN MD, Ot N18.9 CHRONIC KIDNEY DISEASE, UNSPECIFIED 03/27/2016 ANDREW CHAPMAN MD, Ot I50.20 UNSPECIFIED SYSTOLIC (CONGESTIVE) HEART 03/27/2016 ANDREW CHAPMAN MD, Ot I70.232 ATHSCL [place] ARTERIES OF RIGHT LEG W UL 03/27/2016 ANDREW CHAPMAN MD, Ot I70.242 ATHSCL [place] ARTERIES OF LEFT LEG W ULC 03/27/2016 ANDREW CHAPMAN MD, Ot 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 03/27/2016 ANDREW CHAPMAN MD, Ot J44.9 CHRONIC OBSTRUCTIVE PULMONARY DISEASE, U 03/27/2016 ANDREW CHAPMAN MD, Ot L97.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 03/27/2016 ANDREW CHAPMAN MD, Ot L97.221 NON-PRS CHRONIC ULCER OF LEFT CALF LIMIT 03/27/2016 ANDREW CHAPMAN MD, Ot N18.9 CHRONIC KIDNEY DISEASE, UNSPECIFIED 04/22/2016 ANDREW CHAPMAN MD, Ot I50.20 UNSPECIFIED SYSTOLIC (CONGESTIVE) HEART 04/22/2016 ANDREW CHAPMAN MD Ot I70.232 ATHSCL [place] ARTERIES OF RIGHT LEG W UL 04/22/2016 ANDREW CHAPMAN MD Ot I70.242 ATHSCL [place] ARTERIES OF LEFT LEG W ULC 04/22/2016 ANDREW CHAPMAN MD, Ot 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 04/22/2016 ANDREW CHAPMAN MD, Ot J44.9 CHRONIC OBSTRUCTIVE PULMONARY DISEASE, U 04/22/2016 ANDREW CHAPMAN MD, Ot L97.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 04/22/2016 ANDREW CHAPMAN MD, Ot L97.221 NON-PRS CHRONIC ULCER OF LEFT CALF LIMIT 04/22/2016 ANDREW CHAPMAN MD, Ot N18.9 CHRONIC KIDNEY DISEASE, UNSPECIFIED 05/13/2016 MITCH GALLARDO MD Ot J81.1 CHRONIC PULMONARY EDEMA 05/20/2016 ANDREW CHAPMAN MD Ot I50.20 UNSPECIFIED SYSTOLIC (CONGESTIVE) HEART 05/20/2016 ANDREW CHAPMAN MD Ot I87.331 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 05/20/2016 ANDREW CHAPMAN MD Ot J44.9 CHRONIC OBSTRUCTIVE PULMONARY DISEASE, U 05/20/2016 ANDREW CHAPMAN MD Ot L97.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 05/20/2016 ANDREW CHAPMAN MD, Ot N18.9 CHRONIC KIDNEY DISEASE, UNSPECIFIED 06/04/2016 MITCH GALLARDO MD, Ot J81.1 CHRONIC PULMONARY EDEMA 06/12/2016 MITCH GALLARDO MD, Ot J81.1 CHRONIC PULMONARY EDEMA 06/14/2016 LENA MAZARIEGOS APRN Ot E11.9 TYPE 2 DIABETES MELLITUS WITHOUT COMPLIC 06/14/2016 LENA MAZARIEGOS APRN Ot I10 ESSENTIAL (PRIMARY) HYPERTENSION 06/14/2016 LENA MAZARIEGOS APRN Ot I48.2 CHRONIC ATRIAL FIBRILLATION 06/14/2016 LENA MAZARIEGOS APRN Ot J32.0 CHRONIC MAXILLARY SINUSITIS 06/14/2016 LENA MAZARIEGOS APRN Ot J43.9 EMPHYSEMA, UNSPECIFIED 06/14/2016 LENA MAZARIEGOS APRN Ot M47.819 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 06/14/2016 LENA MAZARIEGOS APRN Ot R04.0 EPISTAXIS 06/14/2016 LENA MAZARIEGOS APRN Ot Z79.01 FDC (CURRENT) USE OF ANTICOAGULANT 06/14/2016 LENA MAZARIEGOS APRN Ot Z79.82 FDC (CURRENT) USE OF ASPIRIN 06/14/2016 LENA MAZARIEGOS APRN Ot Z79.899 OTHER FDC (CURRENT) DRUG THERAPY 06/14/2016 LENA MAZARIEGOS APRN Ot Z95.810 PRESENCE OF AUTOMATIC (IMPLANTABLE) CARD 06/14/2016 LENA MAZARIEGOS APRN Ot Z99.81 DEPENDENCE ON SUPPLEMENTAL OXYGEN 06/16/2016 LENA MAZARIEGOS APRN Ot E11.9 TYPE 2 DIABETES MELLITUS WITHOUT COMPLIC 06/16/2016 LENA MAZARIEGOS APRN Ot I10 ESSENTIAL (PRIMARY) HYPERTENSION 06/16/2016 LENA MAZARIEGOS APRN Ot I48.2 CHRONIC ATRIAL FIBRILLATION 06/16/2016 LENA MAZARIEGOS APRN Ot J32.0 CHRONIC MAXILLARY SINUSITIS 06/16/2016 LENA MAZARIEGOS APRN Ot J43.9 EMPHYSEMA, UNSPECIFIED 06/16/2016 LENA MAZARIEGOS APRN Ot M47.819 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 06/16/2016 LENA MAZARIEGOS APRN Ot R04.0 EPISTAXIS 06/16/2016 LENA MAZARIEGOS APRN Ot Z79.01 OUTREACH ASSISTANT (CURRENT) USE OF ANTICOAGULANT 06/16/2016 LENA MAZARIEGOS APRN Ot Z79.82 OUTREACH ASSISTANT (CURRENT) USE OF ASPIRIN 06/16/2016 LENA MAZARIEGOS APRN Ot Z79.899 OTHER FDC (CURRENT) DRUG THERAPY 06/16/2016 LENA MAZARIEGOS APRN Ot Z95.810 PRESENCE OF AUTOMATIC (IMPLANTABLE) CARD 06/16/2016 LENA MAZARIEGOS APRN Ot Z99.81 DEPENDENCE ON SUPPLEMENTAL OXYGEN 07/03/2016 TY STAFFORD MD Ot D50.9 IRON DEFICIENCY ANEMIA, UNSPECIFIED 07/03/2016 TY STAFFORD MD Ot D63.1 ANEMIA IN CHRONIC KIDNEY DISEASE 07/03/2016 TY STAFFORD MD Ot N18.4 CHRONIC KIDNEY DISEASE, STAGE 4 (SEVERE) 07/12/2016 ROBSON ROSS MD, Ot E11.9 TYPE 2 DIABETES MELLITUS WITHOUT COMPLIC 07/12/2016 ROBSON ROSS MD Ot I13.0 HYP HRT CHR [facility] DIS W HRT FAIL AND ST 07/12/2016 ROBSON ROSS MD Ot I48.2 CHRONIC ATRIAL FIBRILLATION 07/12/2016 ROBSON ROSS MD, Ot I50.9 HEART FAILURE, UNSPECIFIED 07/12/2016 ROBSON ROSS MD, Ot J18.9 PNEUMONIA, UNSPECIFIED ORGANISM 07/12/2016 ROBSON ROSS MD, Ot J44.1 CHRONIC OBSTRUCTIVE PULMONARY DISEASE W 07/12/2016 ROBSON ROSS MD, Ot N18.4 CHRONIC KIDNEY DISEASE, STAGE 4 (SEVERE) 07/12/2016 ROBSON ROSS MD Ot R04.2 HEMOPTYSIS 07/12/2016 ROBSON ROSS MD Ot Z79.82 FDC (CURRENT) USE OF ASPIRIN 07/12/2016 ROBSON ROSS MD Ot Z79.899 OTHER OUTREACH ASSISTANT (CURRENT) DRUG THERAPY 07/12/2016 ROBSON ROSS MD, Ot Z95.1 PRESENCE OF AORTOCORONARY BYPASS GRAFT 07/19/2016 ROBSON ROSS MD Ot E11.9 TYPE 2 DIABETES MELLITUS WITHOUT COMPLIC 07/19/2016 ROBSON ROSS MD, Ot I13.0 HYP HRT CHR [place] DIS W HRT FAIL AND ST 07/19/2016 ROBSON ROSS MD Ot I48.2 CHRONIC ATRIAL FIBRILLATION 07/19/2016 ROBSON ROSS MD, Ot I50.9 HEART FAILURE, UNSPECIFIED 07/19/2016 ROBSON ROSS MD, Ot J18.9 PNEUMONIA, UNSPECIFIED ORGANISM 07/19/2016 ROBSON ROSS MD, Ot J44.1 CHRONIC OBSTRUCTIVE PULMONARY DISEASE W 07/19/2016 ROBSON ROSS MD, Ot N18.4 CHRONIC KIDNEY DISEASE, STAGE 4 (SEVERE) 07/19/2016 ROBSON ROSS MD Ot R04.2 HEMOPTYSIS 07/19/2016 ROBSON ROSS MD, Ot Z79.82 OUTREACH ASSISTANT (CURRENT) USE OF ASPIRIN 07/19/2016 ROBSON ROSS MD Ot Z79.899 OTHER OUTREACH ASSISTANT (CURRENT) DRUG THERAPY 07/19/2016 ROBSON ROSS MD Ot Z95.1 PRESENCE OF AORTOCORONARY BYPASS GRAFT 07/25/2016 TY STAFFORD MD Ot D50.9 IRON DEFICIENCY ANEMIA, UNSPECIFIED 07/25/2016 TY STAFFORD MD Ot D63.1 ANEMIA IN CHRONIC KIDNEY DISEASE 07/25/2016 TY STAFFORD MD Ot N18.4 CHRONIC KIDNEY DISEASE, STAGE 4 (SEVERE) 07/30/2016 TY STAFFORD MD Ot D50.9 IRON DEFICIENCY ANEMIA, UNSPECIFIED 07/30/2016 TY STAFFORD MD Ot D63.1 ANEMIA IN CHRONIC KIDNEY DISEASE 07/30/2016 RIVERA RAND, TY Ot N18.4 CHRONIC KIDNEY DISEASE, STAGE 4 (SEVERE) 08/01/2016 ANDREW CHAPMAN MD Ot I50.9 HEART FAILURE, UNSPECIFIED 08/01/2016 ANDREW CHAPMAN MD Ot 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 08/01/2016 ANDREW CHAPMAN MD Ot I89.0 LYMPHEDEMA, NOT ELSEWHERE CLASSIFIED 08/01/2016 ANDREW CHAPMAN MD, Ot L97.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 08/01/2016 ANDREW CHAPMAN MD, Ot L97.221 NON-PRS CHRONIC ULCER OF LEFT CAL[place] LIMIT 08/01/2016 ANDREW CHAPMAN MD, Ot N18.6 END STAGE RENAL DISEASE 08/08/2016 NGUYỄN VALVERDE Ot R22.41 LOCALIZED SWELLING, MASS AND LUMP, RIGHT 08/21/2016 LARRY GONZALEZ DO Ot E11.9 TYPE 2 DIABETES MELLITUS WITHOUT COMPLIC 08/21/2016 LARRY GONZALEZ DO Ot H44.9 UNSPECIFIED DISORDER OF GLOBE 08/21/2016 BARBARA GONZALEZ DOA Imelda Ot I12.0 HYP CHR KIDNEY DISEASE W STAGE 5 CHR KID 08/21/2016 LARRY GONZALEZ DO Ot I48.2 CHRONIC ATRIAL FIBRILLATION 08/21/2016 LARRY GONZALEZ DO Ot N18.6 END STAGE RENAL DISEASE 08/21/2016 BARBARA GONZALEZ DOA K Ot S40.812A ABRASION OF LEFT UPPER ARM, INITIAL ENCO 08/21/2016 LARRY GONZALEZ DO Ot S50.812A ABRASION OF LEFT FOREARM, INITIAL ENCOUN 08/21/2016 LARRY GONZALEZ DO Ot S59.912A UNSPECIFIED INJURY OF LEFT FOREARM, INIT 08/21/2016 LARRY GONZALEZ DO Ot W18.00XA STRIKING AGAINST UNSP OBJECT W SUBSEQUEN 08/21/2016 LARRY GONZALEZ DO Ot Y92.010 KITCHEN OF SINGLE-FAMILY (PRIVATE) HOUSE 08/21/2016 LARRY GONZALEZ DO Ot Y99.8 OTHER EXTERNAL CAUSE STATUS 08/21/2016 LARRY GONZALEZ DO Ot Z79.82 FDC (CURRENT) USE OF ASPIRIN 08/21/2016 LARRY GONZALEZ DO Ot Z79.899 OTHER OUTREACH ASSISTANT (CURRENT) DRUG THERAPY 08/21/2016 CARLOS DO LARRY K Ot Z95.1 PRESENCE OF AORTOCORONARY BYPASS GRAFT 08/21/2016 BARBARA GONZALEZ DOA K Ot Z95.810 PRESENCE OF AUTOMATIC (IMPLANTABLE) CARD 08/21/2016 CARLOS DO LARRY K Ot Z95.828 PRESENCE OF OTHER VASCULAR IMPLANTS AND 08/21/2016 CARLOS DOBARBARAA K Ot Z98.890 OTHER SPECIFIED POSTPROCEDURAL STATES 08/21/2016 CARLOS DOBARBARAA K Ot Z99.2 DEPENDENCE ON RENAL DIALYSIS 08/22/2016 CARLOS DO LARRY K Ot E11.9 TYPE 2 DIABETES MELLITUS WITHOUT COMPLIC 08/22/2016 CARLOS DO LARRY K Ot H44.9 UNSPECIFIED DISORDER OF GLOBE 08/22/2016 CARLOS DO LARRY K Ot I12.0 HYP CHR KIDNEY DISEASE W STAGE 5 CHR KID 08/22/2016 CARLOS MULLEN LARRY K Ot I48.2 CHRONIC ATRIAL FIBRILLATION 08/22/2016 CARLOS BARBARA MULLENA K Ot N18.6 END STAGE RENAL DISEASE 08/22/2016 CARLOS DO LARRY K Ot S40.812A ABRASION OF LEFT UPPER ARM, INITIAL ENCO 08/22/2016 CARLOS BARBARA MULLENA K Ot S50.812A ABRASION OF LEFT FOREARM, INITIAL ENCOUN 08/22/2016 CARLOS DOBARBARAA K Ot S59.912A UNSPECIFIED INJURY OF LEFT FOREARM, INIT 08/22/2016 LARRY GONZALEZ DO K Ot W18.00XA STRIKING AGAINST UNSP OBJECT W SUBSEQUEN 08/22/2016 LARRY GONZALEZ DO K Ot Y92.010 KITCHEN OF SINGLE-FAMILY (PRIVATE) HOUSE 08/22/2016 BARBARA GONZALEZ DOA K Ot Y99.8 OTHER EXTERNAL CAUSE STATUS 08/22/2016 CARLOS DOBARBARAA K Ot Z79.82 OUTREACH ASSISTANT (CURRENT) USE OF ASPIRIN 08/22/2016 BARBARA GONZALEZ DOA K Ot Z79.899 OTHER FDC (CURRENT) DRUG THERAPY 08/22/2016 CARLOS BARBARA MULLENA K Ot Z95.1 PRESENCE OF AORTOCORONARY BYPASS GRAFT 08/22/2016 BARBARA GONZALEZ DOA K Ot Z95.810 PRESENCE OF AUTOMATIC (IMPLANTABLE) CARD 08/22/2016 ACRLOS DO, LARRY K Ot Z95.828 PRESENCE OF OTHER VASCULAR IMPLANTS AND 08/22/2016 CARLOS DOLARRY K Ot Z98.890 OTHER SPECIFIED POSTPROCEDURAL STATES 08/22/2016 CARLOS DOBARBARAA Imelda Ot Z99.2 DEPENDENCE ON RENAL DIALYSIS 08/23/2016 CARLOS LARRY MULLEN K Ot E11.9 TYPE 2 DIABETES MELLITUS WITHOUT COMPLIC 08/23/2016 CARLOS DOLARRY Ot H44.9 UNSPECIFIED DISORDER OF GLOBE 08/23/2016 CARLOS DOBARBARAA Imelda Ot I12.0 HYP CHR KIDNEY DISEASE W STAGE 5 CHR KID 08/23/2016 CARLOS DOLARRY Ot I48.2 CHRONIC ATRIAL FIBRILLATION 08/23/2016 CARLOS LARRY MULLEN Ot N18.6 END STAGE RENAL DISEASE 08/23/2016 CARLOS BARBARA MULLENA K Ot S40.812A ABRASION OF LEFT UPPER ARM, INITIAL ENCO 08/23/2016 LARRY GONZALEZ DO Ot S50.812A ABRASION OF LEFT FOREARM, INITIAL ENCOUN 08/23/2016 CARLOS DOLARRY Ot S59.912A UNSPECIFIED INJURY OF LEFT FOREARM, INIT 08/23/2016 LARRY GONZALEZ DO Ot W18.00XA STRIKING AGAINST UNSP OBJECT W SUBSEQUEN 08/23/2016 LARRY GONZALEZ DO Ot Y92.010 KITCHEN OF SINGLE-FAMILY (PRIVATE) HOUSE 08/23/2016 BARBARA GONZALEZ DOA K Ot Y99.8 OTHER EXTERNAL CAUSE STATUS 08/23/2016 LARRY GONZALEZ DO Ot Z79.82 FDC (CURRENT) USE OF ASPIRIN 08/23/2016 LARRY GONZALEZ DO Ot Z79.899 OTHER FDC (CURRENT) DRUG THERAPY 08/23/2016 BARBARA GONZALEZ DOA Imelda Ot Z95.1 PRESENCE OF AORTOCORONARY BYPASS GRAFT 08/23/2016 LARRY GONZALEZ DO Ot Z95.810 PRESENCE OF AUTOMATIC (IMPLANTABLE) CARD 08/23/2016 LARRY GONZALEZ DO Ot Z95.828 PRESENCE OF OTHER VASCULAR IMPLANTS AND 08/23/2016 CARLOS DOBARBARAA Imelda Ot Z98.890 OTHER SPECIFIED POSTPROCEDURAL STATES 08/23/2016 LARRY GONZALEZ DO Ot Z99.2 DEPENDENCE ON RENAL DIALYSIS 08/28/2016 NGUYỄN VALVERDE Ot M79.89 OTHER SPECIFIED SOFT TISSUE DISORDERS 08/28/2016 NGUYỄN VALVERDE Ot R22.41 LOCALIZED SWELLING, MASS AND LUMP, RIGHT 08/29/2016 ANDREW CHAPMAN MD, Ot I50.9 HEART FAILURE, UNSPECIFIED 08/29/2016 ANDREW CHAPMAN MD, Ot 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 08/29/2016 ANDREW CHAPMAN MD, Ot I89.0 LYMPHEDEMA, NOT ELSEWHERE CLASSIFIED 08/29/2016 ANDREW CHAPMAN MD, Ot L97.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 08/29/2016 ANDREW CHAPMAN MD, Ot L97.221 NON-PRS CHRONIC ULCER OF LEFT CALF LIMIT 08/29/2016 ANDREW CHAPMAN MD, Ot N18.6 END STAGE RENAL DISEASE 09/08/2016 NGUYỄN VALVERDE Ot M79.89 OTHER SPECIFIED SOFT TISSUE DISORDERS 09/08/2016 NGUYỄN VALVERDE Ot R22.41 LOCALIZED SWELLING, MASS AND LUMP, RIGHT 09/12/2016 ANDREW CHAPMAN MD, Ot I50.9 HEART FAILURE, UNSPECIFIED 09/12/2016 ANDREW CHAPMAN MD, Ot 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 09/12/2016 ANDREW CHAPMAN MD, Ot I89.0 LYMPHEDEMA, NOT ELSEWHERE CLASSIFIED 09/12/2016 ANDREW CHAPMAN MD Ot N18.6 END STAGE RENAL DISEASE 09/24/2016 TY STAFFORD MD Ot D50.9 IRON DEFICIENCY ANEMIA, UNSPECIFIED 09/24/2016 TY STAFFORD MD Ot D63.1 ANEMIA IN CHRONIC KIDNEY DISEASE 09/24/2016 TY STAFFORD MD Ot N18.4 CHRONIC KIDNEY DISEASE, STAGE 4 (SEVERE) 10/16/2016 ANDREW CHAPMAN MD, Ot I50.9 HEART FAILURE, UNSPECIFIED 10/16/2016 ANDREW CHAPMAN MD, Ot 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 10/16/2016 ANDREW CHAPMAN MD Ot I89.0 LYMPHEDEMA, NOT ELSEWHERE CLASSIFIED 10/16/2016 ANDREW CHAPMAN MD, Ot N18.6 END STAGE RENAL DISEASE 10/20/2016 ADELA MD, ANDREW G Ot I50.9 HEART FAILURE, UNSPECIFIED 10/20/2016 ANDREW CHAPMAN MD Ot 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 10/20/2016 ANDREW CHAPMAN MD Ot I89.0 LYMPHEDEMA, NOT ELSEWHERE CLASSIFIED 10/20/2016 ANDREW CHAPMAN MD Ot N18.6 END STAGE RENAL DISEASE 10/24/2016 ANDREW CHAPMAN MD Ot I50.9 HEART FAILURE, UNSPECIFIED 10/24/2016 ANDREW CHAPMAN MD, Ot 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 10/24/2016 ANDREW CHAPMAN MD, Ot I89.0 LYMPHEDEMA, NOT ELSEWHERE CLASSIFIED 10/24/2016 ANDREW CHAPMAN MD, Ot N18.6 END STAGE RENAL DISEASE 11/20/2016 ANDREW CHAPMAN MD, Ot I50.9 HEART FAILURE, UNSPECIFIED 11/20/2016 ANDREW CHAPMAN MD Ot I70.242 ATHSCL [place] ARTERIES OF LEFT LEG W ULC 11/20/2016 ANDREW CHAPMAN MD Ot 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 11/20/2016 ANDREW CHAPMAN MD Ot I89.0 LYMPHEDEMA, NOT ELSEWHERE CLASSIFIED 11/20/2016 ANDREW CHAPMAN MD Ot L97.222 NON-PRESSURE CHRONIC ULCER OF LEFT CALF 11/20/2016 ANDREW CHAPMAN MD Ot N18.6 END STAGE RENAL DISEASE 11/26/2016 ANDREW CHAPMAN MD Ot I50.9 HEART FAILURE, UNSPECIFIED 11/26/2016 ANDREW CHAPMAN MD Ot 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 11/26/2016 ANDREW CHAPMAN MD Ot I89.0 LYMPHEDEMA, NOT ELSEWHERE CLASSIFIED 11/26/2016 ANDREW CHAPMAN MD Ot N18.6 END STAGE RENAL DISEASE 12/02/2016 ANDREW CHAPMAN MD Ot I50.9 HEART FAILURE, UNSPECIFIED 12/02/2016 ANDREW CHAPMAN MD Ot 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 12/02/2016 ANDREW CHAPMAN MD Ot I89.0 LYMPHEDEMA, NOT ELSEWHERE CLASSIFIED 12/02/2016 ANDREW CHAPMAN MD Ot L97.212 NON-PRESSURE CHRONIC ULCER OF RIGHT CALF 12/02/2016 ANDREW CHAPMAN MD Ot L97.222 NON-PRESSURE CHRONIC ULCER OF LEFT CALF 12/02/2016 ANDREW CHAPMAN MD Ot N18.6 END STAGE RENAL DISEASE 12/03/2016 ANDREW CHAPMAN MD Ot I50.9 HEART FAILURE, UNSPECIFIED 12/03/2016 ANDREW CHAPMAN MD Ot 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 12/03/2016 ANDREW CHAPMAN MD Ot I89.0 LYMPHEDEMA, NOT ELSEWHERE CLASSIFIED 12/03/2016 ANDREW CHAPMAN MD Ot L97.212 NON-PRESSURE CHRONIC ULCER OF RIGHT CALF 12/03/2016 ANDREW CHAPMAN MD Ot L97.222 NON-PRESSURE CHRONIC ULCER OF LEFT CALF 12/03/2016 ANDREW CHAPMAN MD Ot N18.6 END STAGE RENAL DISEASE 12/04/2016 ANDREW CHAPMAN MD, Ot I50.9 HEART FAILURE, UNSPECIFIED 12/04/2016 ANDREW CHAPMAN MD Ot 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 12/04/2016 ANDREW CHAPMAN MD Ot I89.0 LYMPHEDEMA, NOT ELSEWHERE CLASSIFIED 12/04/2016 ANDREW CHAPMAN MD Ot L97.212 NON-PRESSURE CHRONIC ULCER OF RIGHT CALF 12/04/2016 ANDREW CHAPMAN MD Ot N18.6 END STAGE RENAL DISEASE 12/10/2016 ANDREW CHAPMAN MD Ot I50.9 HEART FAILURE, UNSPECIFIED 12/10/2016 ANDREW CHAPMAN MD Ot 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 12/10/2016 ANDREW CHAPMAN MD Ot I89.0 LYMPHEDEMA, NOT ELSEWHERE CLASSIFIED 12/10/2016 ANDREW CHAPMAN MD Ot L97.212 NON-PRESSURE CHRONIC ULCER OF RIGHT CALF 12/10/2016 ANDREW CHAPMAN MD Ot L97.222 NON-PRESSURE CHRONIC ULCER OF LEFT CALF 12/10/2016 ANDREW CHAPMAN MD Ot N18.6 END STAGE RENAL DISEASE 12/10/2016 ANDREW CHAPMAN MD Ot I50.9 HEART FAILURE, UNSPECIFIED 12/10/2016 ANDREW CHAPMAN MD Ot 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 12/10/2016 ANDREW CHAPMAN MD Ot I89.0 LYMPHEDEMA, NOT ELSEWHERE CLASSIFIED 12/10/2016 ANDREW CHAPMAN MD Ot L97.212 NON-PRESSURE CHRONIC ULCER OF RIGHT CALF 12/10/2016 ANDREW CHAPMAN MD Ot L97.222 NON-PRESSURE CHRONIC ULCER OF LEFT CALF 12/10/2016 ANDREW CHAPMAN MD, Ot N18.6 END STAGE RENAL DISEASE 12/12/2016 ANDREW CHAPMAN MD, Ot I50.9 HEART FAILURE, UNSPECIFIED 12/12/2016 ANDREW CHAPMAN MD Ot I70.242 [place]THSCL [place] ARTERIES OF LEFT LEG W [facility] 12/12/2016 ANDREW CHAPMAN MD, Ot 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 12/12/2016 ANDREW CHAPMAN MD, Ot I89.0 LYMPHEDEMA, NOT ELSEWHERE CLASSIFIED 12/12/2016 ANDREW CHAPMAN MD, Ot L97.222 NON-PRESSURE CHRONIC ULCER OF LEFT CALF 12/12/2016 ANDREW CHAPMAN MD, Ot N18.6 END STAGE RENAL DISEASE 12/18/2016 ANDREW CHAPMAN MD, Ot I50.9 HEART FAILURE, UNSPECIFIED 12/18/2016 ANDREW CHAPMAN MD, Ot I70.242 ATHSCL [place] ARTERIES OF LEFT LEG W [facility] 12/18/2016 ANDREW CHAPMAN MD Ot 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 12/18/2016 ANDREW CHAPMAN MD, Ot I89.0 LYMPHEDEMA, NOT ELSEWHERE CLASSIFIED 12/18/2016 ANDREW CHAPMAN MD, Ot L97.222 NON-PRESSURE CHRONIC ULCER OF LEFT CALF 12/18/2016 ANDREW CHAPMAN MD, Ot N18.6 END STAGE RENAL DISEASE 12/19/2016 SHRUTHI ERICKSON APRN Ot I51.7 CARDIOMEGALY 12/19/2016 SHRUTHI ERICKSON [employer] Ot R05 COUGH 12/19/2016 SHRUTHI ERICKSON [employer] Ot R06.02 SHORTNESS OF BREATH 12/19/2016 SHRUTHI ERICKSON [employer] Ot Z95.9 PRESENCE OF CARDIAC AND VASCULAR IMPLANT 12/24/2016 SHRUTHI ERICKSON [employer] Ot I51.7 CARDIOMEGALY 12/24/2016 SHRUTHI ERICKSON [employer] Ot R05 COUGH 12/24/2016 SHRUTHI ERICKSON APRN Ot R06.02 SHORTNESS OF BREATH 12/24/2016 SHRUTHI ERICKSON T[employer] Ot Z95.9 PRESENCE OF CARDIAC AND VASCULAR IMPLANT 12/31/2016 ANDREW CHAPMAN MD, Ot I50.9 HEART FAILURE, UNSPECIFIED 12/31/2016 ANDREW CHAPMAN MD Ot I70.242 ATHSCL [place] ARTERIES OF LEFT LEG W ULC 12/31/2016 ANDREW CHAPMAN MD Ot 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 12/31/2016 ANDREW CHAPMAN MD, Ot I89.0 LYMPHEDEMA, NOT ELSEWHERE CLASSIFIED 12/31/2016 ANDREW CHAPMAN MD, Ot L97.212 NON-PRESSURE CHRONIC ULCER OF RIGHT CALF 12/31/2016 ANDREW CHAPMAN MD, Ot L97.221 NON-PRS CHRONIC ULCER OF LEFT CALF LIMIT 12/31/2016 ANDREW CHAPMAN MD Ot L97.222 NON-PRESSURE CHRONIC ULCER OF LEFT CALF 12/31/2016 ANDREW CHAPMAN MD, Ot N18.6 END STAGE RENAL DISEASE 01/06/2017 ANDREW CHAPMAN MD, Ot I50.9 HEART FAILURE, UNSPECIFIED 01/06/2017 ANDREW CHAPMAN MD Ot I70.242 ATHSCL [place] ARTERIES OF LEFT LEG W ULC 01/06/2017 ANDREW CHAPMAN MD, Ot 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 01/06/2017 ANDREW CHAPMAN MD, Ot I89.0 LYMPHEDEMA, NOT ELSEWHERE CLASSIFIED 01/06/2017 ANDREW CHAPMAN MD, Ot L97.212 NON-PRESSURE CHRONIC ULCER OF RIGHT CALF 01/06/2017 ANDREW CHAPMAN MD Ot L97.221 NON-PRS CHRONIC ULCER OF LEFT CALF LIMIT 01/06/2017 ANDREW CHAPMAN MD Ot L97.222 NON-PRESSURE CHRONIC ULCER OF LEFT CALF 01/06/2017 ANDREW CHAPMAN MD Ot N18.6 END STAGE RENAL DISEASE 01/08/2017 ANDREW CHAPMAN MD, Ot I50.9 HEART FAILURE, UNSPECIFIED 01/08/2017 ANDREW CHAPMAN MD Ot I70.242 ATHSCL [place] ARTERIES OF LEFT LEG W ULC 01/08/2017 ANDREW CHAPMAN MD Ot 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NA 01/08/2017 ANDREW CHAPMAN MD Ot I89.0 LYMPHEDEMA, NOT ELSEWHERE CLASSIFIED 01/08/2017 ANDREW CHAPMAN MD Ot N18.6 END STAGE RENAL DISEASE 01/10/2017 LARRY GONZALEZ DO Ot C85.90 NON-HODGKIN LYMPHOMA, UNSPECIFIED, UNSPE 01/10/2017 CARLOS DO LARRY K Ot 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 01/10/2017 CARLOS DO LARRY K Ot E78.00 PURE HYPERCHOLESTEROLEMIA, UNSPECIFIED 01/10/2017 CARLOS DO LARRY K Ot E87.79 OTHER FLUID OVERLOAD 01/10/2017 CARLOS DO LARRY K Ot G47.30 SLEEP APNEA, UNSPECIFIED 01/10/2017 CARLOS DOBARBARAA K Ot 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 01/10/2017 CARLOS DOBARBARAA K Ot I25.10 ATHSCL HEART DISEASE OF [place] CORONARY 01/10/2017 CARLOS DOBARBARAA Imelda Ot I42.9 CARDIOMYOPATHY, UNSPECIFIED 01/10/2017 CARLOS DOBARBARAA K Ot I48.91 UNSPECIFIED ATRIAL FIBRILLATION 01/10/2017 CARLOS DO LARRY K Ot I50.9 HEART FAILURE, UNSPECIFIED 01/10/2017 CARLOS DOBARBARAA K Ot J44.9 CHRONIC OBSTRUCTIVE PULMONARY DISEASE, U 01/10/2017 CARLOS DO LARRY K Ot N18.6 END STAGE RENAL DISEASE 01/10/2017 CARLOS DO LARRY K Ot R06.02 SHORTNESS OF BREATH 01/10/2017 BARBARA GONZALEZ DOA K Ot Z79.82 OUTREACH ASSISTANT (CURRENT) USE OF ASPIRIN 01/10/2017 CARLOS MULLEN LARRY K Ot Z80.42 FAMILY HISTORY OF MALIGNANT NEOPLASM OF 01/10/2017 BARBARA GONZALEZ DOA K Ot Z87.891 PERSONAL HISTORY OF NICOTINE DEPENDENCE 01/10/2017 BARBARA GONZALEZ DOA K Ot Z95.1 PRESENCE OF AORTOCORONARY BYPASS GRAFT 01/10/2017 CARLOS BARBARA MULLENA K Ot Z95.810 PRESENCE OF AUTOMATIC (IMPLANTABLE) CARD 01/10/2017 BARBARA GONZALEZ DOA K Ot Z99.2 DEPENDENCE ON RENAL DIALYSIS 2017 BARBARA GONZALEZ DOA K Ot C85.90 NON-HODGKIN LYMPHOMA, UNSPECIFIED, UNSPE 2017 CARLOS DO LARRY K Ot 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 2017 CARLOS DOBARBARAA K Ot E78.00 PURE HYPERCHOLESTEROLEMIA, UNSPECIFIED 2017 LARRY GONZALEZ DO Ot E87.79 OTHER FLUID OVERLOAD 2017 LARRY GONZALEZ DO Ot G47.30 SLEEP APNEA, UNSPECIFIED 2017 CARLOS MULLEN LARRY Segura Ot 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 2017 CARLOS MULLEN LARRY Segura Ot I25.10 ATHSCL HEART DISEASE OF [place] CORONARY 2017 CARLOS MULLEN LARRY Segura Ot I42.9 CARDIOMYOPATHY, UNSPECIFIED 2017 CARLOS MULLEN LARRY Segura Ot I48.91 UNSPECIFIED ATRIAL FIBRILLATION 2017 CARLOS MULLEN LARRY Segura Ot I50.9 HEART FAILURE, UNSPECIFIED 2017 CARLOS MULLEN LARRY Segura Ot J44.9 CHRONIC OBSTRUCTIVE PULMONARY DISEASE, U 2017 CARLOS MULLEN LARRY Segura Ot N18.6 END STAGE RENAL DISEASE 2017 CARLOS MULLEN LARRY Segura Ot R06.02 SHORTNESS OF BREATH 2017 CARLOS MULLEN LARRY Segura Ot Z79.82 FDC (CURRENT) USE OF ASPIRIN 2017 CARLOS MULLEN LARRY Segura Ot Z80.42 FAMILY HISTORY OF MALIGNANT NEOPLASM OF 2017 LARRY GONZALEZ DO Ot Z87.891 PERSONAL HISTORY OF NICOTINE DEPENDENCE 2017 CARLOS MULLEN LARRY Segura Ot Z95.1 PRESENCE OF AORTOCORONARY BYPASS GRAFT 2017 CARLOS MULLEN LARRY Segura Ot Z95.810 PRESENCE OF AUTOMATIC (IMPLANTABLE) CARD 2017 CARLOS MULLEN LARRY Segura Ot Z99.2 DEPENDENCE ON RENAL DIALYSIS 01/14/2017 ANDREW CHAPMAN MD Ot I50.9 HEART FAILURE, UNSPECIFIED 01/14/2017 ANDREW CHAPMAN MD Ot I70.242 ATHSCL [place] ARTERIES OF LEFT LEG W ULC 01/14/2017 ANDREW CHAPMAN MD Ot 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[place] 01/14/2017 ANDREW CHAPMAN MD Ot I89.0 LYMPHEDEMA, NOT ELSEWHERE CLASSIFIED 01/14/2017 ANDREW CHAPMAN MD Ot N18.6 END STAGE RENAL DISEASE 02/05/2017 RIVERA RAND, NÉSTOR S Ot A04.7 ENTEROCOLITIS DUE TO CLOSTRIDIUM DIFFICI 02/10/2017 ANDREW CHAPMAN MD Ot I50.9 HEART FAILURE, UNSPECIFIED 02/10/2017 ANDREW CHAPMAN MD Ot 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 02/10/2017 ANDREW CHAPMAN MD Ot I89.0 LYMPHEDEMA, NOT ELSEWHERE CLASSIFIED 02/10/2017 ANDREW CHAPMAN MD Ot N18.6 END STAGE RENAL DISEASE 03/09/2017 NGUYỄN VALVERDE Ot 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, LUMBAR REGIO 03/09/2017 NGUYỄN VALVERDE Ot M47.816 SPONDYLOSIS W/O MYELOPATHY OR RADICULOPA 03/09/2017 NGUYỄN VALVERDE Ot M54.6 PAIN IN THORACIC SPINE 03/09/2017 NGUYỄN VALVERDE Ot W19.XXXA UNSPECIFIED FALL, INITIAL ENCOUNTER 03/13/2017 NGUYỄN VALVERDE Ot M41.86 OTHER FORMS OF SCOLIOSIS, LUMBAR REGION 03/13/2017 NGUYỄN VALVERDE Ot M47.816 SPONDYLOSIS W/O MYELOPATHY OR RADICULOPA 03/13/2017 NGUYỄN VALVERDE Ot M54.6 PAIN IN THORACIC SPINE 03/13/2017 NGUYỄN VALVERDE Ot W19.XXXA UNSPECIFIED FALL, INITIAL ENCOUNTER 03/19/2017 ANDREW CHAPMAN MD Ot I50.9 HEART FAILURE, UNSPECIFIED 03/19/2017 ANDREW CHAPMAN MD Ot 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 03/19/2017 ANDREW CHAPMAN MD Ot I89.0 LYMPHEDEMA, NOT ELSEWHERE CLASSIFIED 03/19/2017 ANDREW CHAPMAN MD Ot L97.212 NON-PRESSURE CHRONIC ULCER OF RIGHT CALF 03/19/2017 ANDREW CHAPMAN MD Ot L97.222 NON-PRESSURE CHRONIC ULCER OF LEFT CALF 03/19/2017 ANDREW CHAPMAN MD Ot N18.6 END STAGE RENAL DISEASE 03/27/2017 NGUYỄN VALVERDE Ot M41.86 OTHER FORMS OF SCOLIOSIS, LUMBAR REGION 03/27/2017 NGUYỄN VALVERDE Ot M47.816 SPONDYLOSIS W/O MYELOPATHY OR RADICULOPA 03/27/2017 NGUYỄN VALVERDE Ot M54.6 PAIN IN THORACIC SPINE 03/27/2017 NGUYỄN VALVERDE Ot W19.XXXA UNSPECIFIED FALL, INITIAL ENCOUNTER 04/08/2017 MITCH GALLARDO MD Ot R05 COUGH 04/09/2017 NGUYỄN VALVERDE Ot M41.86 OTHER FORMS OF SCOLIOSIS, LUMBAR REGION 04/09/2017 NGUYỄN VALVERDE Ot M47.816 SPONDYLOSIS W/O MYELOPATHY OR RADICULOPA 04/09/2017 NGUYỄN VALVERDE Ot M54.6 PAIN IN THORACIC SPINE 04/09/2017 NGUYỄN VALVERDE Ot W19.XXXA UNSPECIFIED FALL, INITIAL ENCOUNTER 04/16/2017 ANDREW CHAPMAN MD, Ot I50.9 HEART FAILURE, UNSPECIFIED 04/16/2017 ANDREW CHAPMAN MD, Ot 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 Results Test Result Range Complete blood count (CBC) with automated white blood cell (WBC) differential - 02/26/16 07:00 Blood leukocytes automated count (number/volume) 12.1 10*3/uL 4.3-11.0 Blood erythrocytes automated count (number/volume) 4.45 10*6/uL 4.35-5.85 Venous blood hemoglobin measurement (mass/volume) 13.9 g/dL 13.3-17.7 Blood hematocrit (volume fraction) 42 % 40-54 Automated erythrocyte mean corpuscular volume 95 [foz_us] 80-99 Automated erythrocyte mean corpuscular hemoglobin (mass per erythrocyte) 31 pg 25-34 Automated erythrocyte mean corpuscular hemoglobin concentration measurement ( mass/volume) 33 g/dL 32-36 Automated erythrocyte distribution width ratio 17.4 % 10.0-14.5 Automated blood platelet count (count/volume) 194 10*3/uL 130-400 Automated blood platelet mean volume measurement 12.4 [foz_us] 7.4-10.4 Automated blood neutrophils/100 leukocytes 78 % 42-75 Automated blood lymphocytes/100 leukocytes 12 % 12-44 Blood monocytes/100 leukocytes 9 % 0-12 Automated blood eosinophils/100 leukocytes 2 % 0-10 Automated blood basophils/100 leukocytes 0 % 0-10 Blood neutrophils automated count (number/volume) 9.4 10*3 1.8-7.8 Blood lymphocytes automated count (number/volume) 1.4 10*3 1.0-4.0 Blood monocytes automated count (number/volume) 1.1 10*3 0.0-1.0 Automated eosinophil count 0.2 10*3/uL 0.0-0.3 Automated blood basophil count (count/volume) 0.0 10*3/uL 0.0-0.1 PT panel in platelet poor plasma by coagulation assay - 02/26/16 07:00 Prothrombin time (PT) in platelet poor plasma by coagulation assay 20.1 s 12.2-14.7 INR in platelet poor plasma or blood by coagulation assay 1.7 0.8-1.4 Activated partial thromboplastin time (aPTT) in platelet poor plasma bycoagulation assay - 02/26/16 07:00 Activated partial thromboplastin time (aPTT) in platelet poor plasma bycoagulation assay 50 s 24-35 Blood lactic acid measurement (moles/volume) - 02/26/16 07:00 Blood lactic acid measurement (moles/volume) 5.4 mmol/L 0.5-2.0 Comprehensive metabolic panel - 02/26/16 07:00 Serum or plasma sodium measurement (moles/volume) 137 mmol/L 135-145 Serum or plasma potassium measurement (moles/volume) 4.2 mmol/L 3.6-5.0 Serum or plasma chloride measurement (moles/volume) 101 mmol/L 98-107 Carbon dioxide 18 mmol/L 21-32 Serum or plasma anion gap determination (moles/volume) 18 mmol/L 5-14 Serum or plasma urea nitrogen measurement (mass/volume) 94 mg/dL 7-18 Serum or plasma creatinine measurement (mass/volume) 3.70 mg/dL 0.60-1.30 Serum or plasma urea nitrogen/creatinine mass ratio 25 NRG Serum or plasma creatinine measurement with calculation of estimated glomerular filtration rate 16 NRG Serum or plasma glucose measurement (mass/volume) 115 mg/dL 70-105 Serum or plasma calcium measurement (mass/volume) 9.2 mg/dL 8.5-10.1 Serum or plasma total bilirubin measurement (mass/volume) 1.8 mg/dL 0.1-1.0 Serum or plasma alkaline phosphatase measurement (enzymatic activity/volume) 145 U/L 40-136 Serum or plasma aspartate aminotransferase measurement (enzymatic activity/ volume) 24 U/L 5-34 Serum or plasma alanine aminotransferase measurement (enzymatic activity/volume ) 20 U/L 0-55 Serum or plasma protein measurement (mass/volume) 7.5 g/dL 6.4-8.2 Serum or plasma albumin measurement (mass/volume) 3.9 g/dL 3.2-4.5 Bacterial blood culture - 02/26/16 07:00 FREE TEXT EXTERNAL SENSITIVITY REPORTED 02/26 15:56 NRG QUANTITY OF GROWTH Isolated NRG Bacterial blood culture [id number] [facility] Bacterial susceptibility panel - 02/26/16 07:00 Gentamicin susceptibility test by minimum inhibitory concentration < = NRG Trimethoprim/sulfamethoxazole susceptibility test by minimum inhibitoryconcentration <= NRG Tobramycin susceptibility test by minimum inhibitory concentration 4 NRG Cefazolin susceptibility test by minimum inhibitory concentration > = NRG Ceftriaxone susceptibility test by minimum inhibitory concentration <= NRG Ciprofloxacin susceptibility test by minimum inhibitory concentration <= NRG Meropenem susceptibility test by minimum inhibitory concentration < = NRG Aztreonam susceptibility test by minimum inhibitory concentration < = NRG Bacterial blood culture - 02/26/16 07:15 Bacterial blood culture NG NRG Influenza virus A and B antigen detection - 02/26/16 07:43 FLU RESULT NEGATIVE FOR INFLUENZA A AND B ANTIGENS BY IA NRG Complete urinalysis with reflex to culture - 02/26/16 07:45 Urine color determination YELLOW NRG Urine clarity determination CLEAR NRG Urine pH measurement by test strip 5 5-9 Specific gravity of urine by test strip 1.015 1.016- 1.022 Urine protein assay by test strip, semi-quantitative NEGATIVE NEGATIVE Urine glucose detection by automated test strip NEGATIVE NEGATIVE Erythrocytes detection in urine sediment by light microscopy NEGATIVE NEGATIVE Urine ketones detection by automated test strip NEGATIVE NEGATIVE Urine nitrite detection by test strip NEGATIVE NEGATIVE Urine total bilirubin detection by test strip NEGATIVE NEGATIVE Urine urobilinogen measurement by automated test strip (mass/volume) NORMAL NORMAL Urine leukocyte esterase detection by dipstick NEGATIVE NEGATIVE Automated urine sediment erythrocyte count by microscopy (number/high power field) NONE NRG Automated urine sediment leukocyte count by microscopy (number/high power field ) NONE NRG Bacteria detection in urine sediment by light microscopy NEGATIVE NRG Squamous epithelial cells detection in urine sediment by light microscopy 0-2 NRG Crystals detection in urine sediment by light microscopy NONE NRG Casts detection in urine sediment by light microscopy PRESENT NRG Mucus detection in urine sediment by light microscopy NEGATIVE NRG Complete urinalysis with reflex to culture NO NRG Hyaline casts detection in urine sediment by light microscopy 5-10 NRG Serum or plasma lactate measurement (moles/volume) - 02/26/16 09:00 Serum or plasma lactate measurement (moles/volume) 1.6 mmol/L 0.5-2.0 Arterial blood gas measurement - 02/26/16 10:29 Blood pCO2 31 mm[Hg] 35-45 Blood pO2 73 mm[Hg] 79-93 Arterial blood bicarbonate measurement (moles/volume) 20 mmol/L 23-27 Arterial blood base excess by calculation -4.0 mmol/L - 2.5-2.5 Arterial blood oxygen saturation measurement 96 % 94-100 * Inhaled oxygen flow rate 4 L NRG Arterial blood pH measurement with patient temperature correction 7.42 7.37-7.43 Arterial blood carbon dioxide, total measurement (moles/volume) 20.6 mmol/L 21.0-31.0 Body site L RADIAL NRG Assessment of wrist artery patency prior to arterial puncture POSITIVE NRG Setting of ventilation mode NO NRG Measurement of body temperature 98.1 NRG Capillary blood glucose measurement by glucometer (mass/volume) - 02/26/16 19: 24 Capillary blood glucose measurement by glucometer (mass/volume) 107 mg/dL 70-110 Methicillin resistant Staphylococcus aureus (MRSA) screening culture - 20:50 Methicillin resistant Staphylococcus aureus (MRSA) screening culture NEG NRG Capillary blood glucose measurement by glucometer (mass/volume) - 02/26/16 23: 44 Capillary blood glucose measurement by glucometer (mass/volume) 81 mg/dL 70-110 Complete blood count (CBC) with automated white blood cell (WBC) differential - 02/27/16 04:15 Blood leukocytes automated count (number/volume) 9.0 10*3/uL 4.3-11.0 Blood erythrocytes automated count (number/volume) 3.70 10*6/uL 4.35-5.85 Venous blood hemoglobin measurement (mass/volume) 11.3 g/dL 13.3-17.7 Blood hematocrit (volume fraction) 35 % 40-54 Automated erythrocyte mean corpuscular volume 94 [foz_us] 80-99 Automated erythrocyte mean corpuscular hemoglobin (mass per erythrocyte) 31 pg 25-34 Automated erythrocyte mean corpuscular hemoglobin concentration measurement ( mass/volume) 32 g/dL 32-36 Automated erythrocyte distribution width ratio 17.4 % 10.0-14.5 Automated blood platelet count (count/volume) 135 10*3/uL 130-400 Automated blood platelet mean volume measurement 11.1 [foz_us] 7.4-10.4 Automated blood neutrophils/100 leukocytes 76 % 42-75 Automated blood lymphocytes/100 leukocytes 9 % 12-44 Blood monocytes/100 leukocytes 14 % 0-12 Automated blood eosinophils/100 leukocytes 1 % 0-10 Automated blood basophils/100 leukocytes 0 % 0-10 Blood neutrophils automated count (number/volume) 6.8 10*3 1.8-7.8 Blood lymphocytes automated count (number/volume) 0.8 10*3 1.0-4.0 Blood monocytes automated count (number/volume) 1.2 10*3 0.0-1.0 Automated eosinophil count 0.1 10*3/uL 0.0-0.3 Automated blood basophil count (count/volume) 0.0 10*3/uL 0.0-0.1 Whole blood basic metabolic panel - 02/27/16 04:15 Serum or plasma sodium measurement (moles/volume) 134 mmol/L 135-145 Serum or plasma potassium measurement (moles/volume) 3.6 mmol/L 3.6-5.0 Serum or plasma chloride measurement (moles/volume) 106 mmol/L 98-107 Carbon dioxide 17 mmol/L 21-32 Serum or plasma anion gap determination (moles/volume) 11 mmol/L 5-14 Serum or plasma urea nitrogen measurement (mass/volume) 74 mg/dL 7-18 Serum or plasma creatinine measurement (mass/volume) 2.91 mg/dL 0.60-1.30 Serum or plasma urea nitrogen/creatinine mass ratio 25 NRG Serum or plasma creatinine measurement with calculation of estimated glomerular filtration rate 21 NRG Serum or plasma glucose measurement (mass/volume) 86 mg/dL 70-105 Serum or plasma calcium measurement (mass/volume) 7.8 mg/dL 8.5-10.1 Serum or plasma phosphate measurement (mass/volume) - 02/27/16 04:15 Serum or plasma phosphate measurement (mass/volume) 3.1 mg/dL 2.3-4.7 Magnesium - 02/27/16 04:15 Magnesium 1.7 mg/dL 1.8-2.4 Capillary blood glucose measurement by glucometer (mass/volume) - 02/27/16 12: 34 Capillary blood glucose measurement by glucometer (mass/volume) 118 mg/dL 70-110 Capillary blood glucose measurement by glucometer (mass/volume) - 02/27/16 18: 07 Capillary blood glucose measurement by glucometer (mass/volume) 165 mg/dL 70-110 Capillary blood glucose measurement by glucometer (mass/volume) - 02/27/16 23: 29 Capillary blood glucose measurement by glucometer (mass/volume) 115 mg/dL 70-110 Whole blood basic metabolic panel - 02/28/16 04:25 Serum or plasma sodium measurement (moles/volume) 133 mmol/L 135-145 Serum or plasma potassium measurement (moles/volume) 3.7 mmol/L 3.6-5.0 Serum or plasma chloride measurement (moles/volume) 105 mmol/L 98-107 Carbon dioxide 18 mmol/L 21-32 Serum or plasma anion gap determination (moles/volume) 10 mmol/L 5-14 Serum or plasma urea nitrogen measurement (mass/volume) 76 mg/dL 7-18 Serum or plasma creatinine measurement (mass/volume) 2.85 mg/dL 0.60-1.30 Serum or plasma urea nitrogen/creatinine mass ratio 27 NRG Serum or plasma creatinine measurement with calculation of estimated glomerular filtration rate 22 NRG Serum or plasma glucose measurement (mass/volume) 95 mg/dL 70-105 Serum or plasma calcium measurement (mass/volume) 8.5 mg/dL 8.5-10.1 Capillary blood glucose measurement by glucometer (mass/volume) - 02/28/16 12: 08 Capillary blood glucose measurement by glucometer (mass/volume) 97 mg/dL 70-110 Capillary blood glucose measurement by glucometer (mass/volume) - 02/28/16 17: 43 Capillary blood glucose measurement by glucometer (mass/volume) 109 mg/dL 70-110 Capillary blood glucose measurement by glucometer (mass/volume) - 02/28/16 20: 25 Capillary blood glucose measurement by glucometer (mass/volume) 121 mg/dL 70-110 Capillary blood glucose measurement by glucometer (mass/volume) - 02/28/16 23: 50 Capillary blood glucose measurement by glucometer (mass/volume) 118 mg/dL 70-110 Complete blood count (CBC) with automated white blood cell (WBC) differential - 02/29/16 04:06 Blood leukocytes automated count (number/volume) 7.1 10*3/uL 4.3-11.0 Blood erythrocytes automated count (number/volume) 3.61 10*6/uL 4.35-5.85 Venous blood hemoglobin measurement (mass/volume) 11.3 g/dL 13.3-17.7 Blood hematocrit (volume fraction) 34 % 40-54 Automated erythrocyte mean corpuscular volume 93 [foz_us] 80-99 Automated erythrocyte mean corpuscular hemoglobin (mass per erythrocyte) 31 pg 25-34 Automated erythrocyte mean corpuscular hemoglobin concentration measurement ( mass/volume) 34 g/dL 32-36 Automated erythrocyte distribution width ratio 17.2 % 10.0-14.5 Automated blood platelet count (count/volume) 130 10*3/uL 130-400 Automated blood platelet mean volume measurement 11.6 [foz_us] 7.4-10.4 Automated blood neutrophils/100 leukocytes 69 % 42-75 Automated blood lymphocytes/100 leukocytes 10 % 12-44 Blood monocytes/100 leukocytes 17 % 0-12 Automated blood eosinophils/100 leukocytes 4 % 0-10 Automated blood basophils/100 leukocytes 0 % 0-10 Blood neutrophils automated count (number/volume) 4.9 10*3 1.8-7.8 Blood lymphocytes automated count (number/volume) 0.7 10*3 1.0-4.0 Blood monocytes automated count (number/volume) 1.2 10*3 0.0-1.0 Automated eosinophil count 0.3 10*3/uL 0.0-0.3 Automated blood basophil count (count/volume) 0.0 10*3/uL 0.0-0.1 Comprehensive metabolic panel - 02/29/16 04:06 Serum or plasma sodium measurement (moles/volume) 135 mmol/L 135-145 Serum or plasma potassium measurement (moles/volume) 4.1 mmol/L 3.6-5.0 Serum or plasma chloride measurement (moles/volume) 107 mmol/L 98-107 Carbon dioxide 17 mmol/L 21-32 Serum or plasma anion gap determination (moles/volume) 11 mmol/L 5-14 Serum or plasma urea nitrogen measurement (mass/volume) 66 mg/dL 7-18 Serum or plasma creatinine measurement (mass/volume) 2.55 mg/dL 0.60-1.30 Serum or plasma urea nitrogen/creatinine mass ratio 26 NRG Serum or plasma creatinine measurement with calculation of estimated glomerular filtration rate 25 NRG Serum or plasma glucose measurement (mass/volume) 104 mg/dL 70-105 Serum or plasma calcium measurement (mass/volume) 8.8 mg/dL 8.5-10.1 Serum or plasma total bilirubin measurement (mass/volume) 1.7 mg/dL 0.1-1.0 Serum or plasma alkaline phosphatase measurement (enzymatic activity/volume) 95 U/L 40-136 Serum or plasma aspartate aminotransferase measurement (enzymatic activity/ volume) 23 U/L 5-34 Serum or plasma alanine aminotransferase measurement (enzymatic activity/volume ) 16 U/L 0-55 Serum or plasma protein measurement (mass/volume) 6.0 g/dL 6.4-8.2 Serum or plasma albumin measurement (mass/volume) 3.1 g/dL 3.2-4.5 Magnesium - 02/29/16 04:06 Magnesium 2.2 mg/dL 1.8-2.4 Capillary blood glucose measurement by glucometer (mass/volume) - 02/29/16 11: 46 Capillary blood glucose measurement by glucometer (mass/volume) 118 mg/dL 70-110 Capillary blood glucose measurement by glucometer (mass/volume) - 02/29/16 17: 25 Capillary blood glucose measurement by glucometer (mass/volume) 96 mg/dL 70-110 Capillary blood glucose measurement by glucometer (mass/volume) - 03/01/16 00: 00 Capillary blood glucose measurement by glucometer (mass/volume) 103 mg/dL 70-110 Whole blood basic metabolic panel - 03/01/16 04:09 Serum or plasma sodium measurement (moles/volume) 137 mmol/L 135-145 Serum or plasma potassium measurement (moles/volume) 3.8 mmol/L 3.6-5.0 Serum or plasma chloride measurement (moles/volume) 107 mmol/L 98-107 Carbon dioxide 19 mmol/L 21-32 Serum or plasma anion gap determination (moles/volume) 11 mmol/L 5-14 Serum or plasma urea nitrogen measurement (mass/volume) 64 mg/dL 7-18 Serum or plasma creatinine measurement (mass/volume) 2.56 mg/dL 0.60-1.30 Serum or plasma urea nitrogen/creatinine mass ratio 25 NRG Serum or plasma creatinine measurement with calculation of estimated glomerular filtration rate 25 NRG Serum or plasma glucose measurement (mass/volume) 93 mg/dL 70-105 Serum or plasma calcium measurement (mass/volume) 8.9 mg/dL 8.5-10.1 Magnesium - 03/01/16 04:09 Magnesium 2.1 mg/dL 1.8-2.4 Capillary blood glucose measurement by glucometer (mass/volume) - 03/01/16 11: 33 Capillary blood glucose measurement by glucometer (mass/volume) 112 mg/dL 70-110 Capillary blood glucose measurement by glucometer (mass/volume) - 03/01/16 17: 25 Capillary blood glucose measurement by glucometer (mass/volume) 123 mg/dL 70-110 Capillary blood glucose measurement by glucometer (mass/volume) - 03/02/16 00: 10 Capillary blood glucose measurement by glucometer (mass/volume) 115 mg/dL 70-110 Capillary blood glucose measurement by glucometer (mass/volume) - 03/02/16 06: 08 Capillary blood glucose measurement by glucometer (mass/volume) 100 mg/dL 70-110 Capillary blood glucose measurement by glucometer (mass/volume) - 03/02/16 11: 47 Capillary blood glucose measurement by glucometer (mass/volume) 113 mg/dL 70-110 Capillary blood glucose measurement by glucometer (mass/volume) - 03/02/16 17: 39 Capillary blood glucose measurement by glucometer (mass/volume) 113 mg/dL 70-110 Capillary blood glucose measurement by glucometer (mass/volume) - 03/03/16 07: 07 Capillary blood glucose measurement by glucometer (mass/volume) 92 mg/dL 70-110 Comprehensive metabolic panel - 03/04/16 11:12 Serum or plasma sodium measurement (moles/volume) 138 mmol/L 135-145 Serum or plasma potassium measurement (moles/volume) 4.0 mmol/L 3.6-5.0 Serum or plasma chloride measurement (moles/volume) 105 mmol/L 98-107 Carbon dioxide 24 mmol/L 21-32 Serum or plasma anion gap determination (moles/volume) 9 mmol/L 5-14 Serum or plasma urea nitrogen measurement (mass/volume) 50 mg/dL 7-18 Serum or plasma creatinine measurement (mass/volume) 2.30 mg/dL 0.60-1.30 Serum or plasma urea nitrogen/creatinine mass ratio 22 NRG Serum or plasma creatinine measurement with calculation of estimated glomerular filtration rate 28 NR Serum or plasma glucose measurement (mass/volume) 96 mg/dL 70-105 Serum or plasma calcium measurement (mass/volume) 9.0 mg/dL 8.5-10.1 Serum or plasma total bilirubin measurement (mass/volume) 1.7 mg/dL 0.1-1.0 Serum or plasma alkaline phosphatase measurement (enzymatic activity/volume) 134 U/L 40-136 Serum or plasma aspartate aminotransferase measurement (enzymatic activity/ volume) 27 U/L 5-34 Serum or plasma alanine aminotransferase measurement (enzymatic activity/volume ) 20 U/L 0-55 Serum or plasma protein measurement (mass/volume) 6.7 g/dL 6.4-8.2 Serum or plasma albumin measurement (mass/volume) 3.5 g/dL 3.2-4.5 Influenza virus A and B antigen detection - 07/12/16 09:18 FLU RESULT NEGATIVE FOR INFLUENZA A AND B ANTIGENS BY [facility] Complete blood count (CBC) with automated white blood cell (WBC) differential - 07/12/16 09:36 Blood leukocytes automated count (number/volume) 5.8 10*3/uL 4.3-11.0 Blood erythrocytes automated count (number/volume) 3.63 10*6/uL 4.35-5.85 Venous blood hemoglobin measurement (mass/volume) 10.8 g/dL 13.3-17.7 Blood hematocrit (volume fraction) 35 % 40-54 Automated erythrocyte mean corpuscular volume 95 [foz_us] 80-99 Automated erythrocyte mean corpuscular hemoglobin (mass per erythrocyte) 30 pg 25-34 Automated erythrocyte mean corpuscular hemoglobin concentration measurement ( mass/volume) 31 g/dL 32-36 Automated erythrocyte distribution width ratio 20.2 % 10.0-14.5 Automated blood platelet count (count/volume) 158 10*3/uL 130-400 Automated blood platelet mean volume measurement 11.8 [foz_us] 7.4-10.4 Automated blood neutrophils/100 leukocytes 60 % 42-75 Automated blood lymphocytes/100 leukocytes 19 % 12-44 Blood monocytes/100 leukocytes 17 % 0-12 Automated blood eosinophils/100 leukocytes 4 % 0-10 Automated blood basophils/100 leukocytes 0 % 0-10 Blood neutrophils automated count (number/volume) 3.5 10*3 1.8-7.8 Blood lymphocytes automated count (number/volume) 1.1 10*3 1.0-4.0 Blood monocytes automated count (number/volume) 1.0 10*3 0.0-1.0 Automated eosinophil count 0.2 10*3/uL 0.0-0.3 Automated blood basophil count (count/volume) 0.0 10*3/uL 0.0-0.1 PT panel in platelet poor plasma by coagulation assay - 07/12/16 09:36 Prothrombin time (PT) in platelet poor plasma by coagulation assay 24.0 s 12.2-14.7 INR in platelet poor plasma or blood by coagulation assay 2.2 0.8-1.4 Activated partial thromboplastin time (aPTT) in platelet poor plasma bycoagulation assay - 07/12/16 09:36 Activated partial thromboplastin time (aPTT) in platelet poor plasma bycoagulation assay 68 s 24-35 Comprehensive metabolic panel - 07/12/16 09:36 Serum or plasma sodium measurement (moles/volume) 138 mmol/L 135-145 Serum or plasma potassium measurement (moles/volume) 4.4 mmol/L 3.6-5.0 Serum or plasma chloride measurement (moles/volume) 102 mmol/L 98-107 Carbon dioxide 22 mmol/L 21-32 Serum or plasma anion gap determination (moles/volume) 14 mmol/L 5-14 Serum or plasma urea nitrogen measurement (mass/volume) 115 mg/dL 7-18 Serum or plasma creatinine measurement (mass/volume) 4.37 mg/dL 0.60-1.30 Serum or plasma urea nitrogen/creatinine mass ratio 26 NRG Serum or plasma creatinine measurement with calculation of estimated glomerular filtration rate 13 NRG Serum or plasma glucose measurement (mass/volume) 92 mg/dL 70-105 Serum or plasma calcium measurement (mass/volume) 8.6 mg/dL 8.5-10.1 Serum or plasma total bilirubin measurement (mass/volume) 1.5 mg/dL 0.1-1.0 Serum or plasma alkaline phosphatase measurement (enzymatic activity/volume) 139 U/L 40-136 Serum or plasma aspartate aminotransferase measurement (enzymatic activity/ volume) 21 U/L 5-34 Serum or plasma alanine aminotransferase measurement (enzymatic activity/volume ) 12 U/L 0-55 Serum or plasma protein measurement (mass/volume) 7.2 g/dL 6.4-8.2 Serum or plasma albumin measurement (mass/volume) 3.5 g/dL 3.2-4.5 Serum or plasma lithium measurement (moles/volume) - 07/12/16 09:36 BNP level 3722.5 pg/mL <100.0 Serum or plasma C reactive protein measurement (mass/volume) - 07/12/16 09:36 Serum or plasma C reactive protein measurement (mass/volume) 1.59 mg /dL 0.00-0.50 Bacterial blood culture - 07/12/16 11:28 FREE TEXT EXTERNAL SEE COMMENTS NRG QUANTITY OF GROWTH Isolated NRG Bacterial blood culture [id number] NR Bacterial blood culture - 07/12/16 11:58 Bacterial blood culture NG NR Blood lactic acid measurement (moles/volume) - 07/12/16 12:10 Blood lactic acid measurement (moles/volume) 2.47 mmol/L 0.50-2.00 Sputum Gram stain - 07/12/16 12:31 GRAM STAIN SPUTUM AND MIXED BACTERIAL BRIAN NR Bacterial sputum culture - 07/12/16 12:31 FREE TEXT EXTERNAL SENSITIVITY REPORTE AT 1618, 4--17 NRG QUANTITY OF GROWTH Abundant Growth NR Bacterial sputum culture [id number] NR Bacterial susceptibility panel - 07/12/16 12:31 Gentamicin susceptibility test by minimum inhibitory concentration < = NRG Trimethoprim/sulfamethoxazole susceptibility test by minimum inhibitoryconcentration <= NRG Tobramycin susceptibility test by minimum inhibitory concentration 2 NRG Cefazolin susceptibility test by minimum inhibitory concentration > = NRG Ceftriaxone susceptibility test by minimum inhibitory concentration <= NRG Ciprofloxacin susceptibility test by minimum inhibitory concentration <= NRG Meropenem susceptibility test by minimum inhibitory concentration < = NRG Aztreonam susceptibility test by minimum inhibitory concentration < = NRG Automated blood complete blood count (hemogram) panel - 08/08/16 11:11 Blood leukocytes automated count (number/volume) 12.9 10*3/uL 4.3-11.0 Blood erythrocytes automated count (number/volume) 3.68 10*6/uL 4.35-5.85 Venous blood hemoglobin measurement (mass/volume) 11.4 g/dL 13.3-17.7 Blood hematocrit (volume fraction) 36 % 40-54 Automated erythrocyte mean corpuscular volume 99 [foz_us] 80-99 Automated erythrocyte mean corpuscular hemoglobin (mass per erythrocyte) 31 pg 25-34 Automated erythrocyte mean corpuscular hemoglobin concentration measurement ( mass/volume) 31 g/dL 32-36 Automated erythrocyte distribution width ratio 18.7 % 10.0-14.5 Automated blood platelet count (count/volume) 157 10*3/uL 130-400 Automated blood platelet mean volume measurement 11.1 [foz_us] 7.4-10.4 PT panel in platelet poor plasma by coagulation assay - 08/08/16 11:11 Prothrombin time (PT) in platelet poor plasma by coagulation assay 21.7 s 12.2-14.7 INR in platelet poor plasma or blood by coagulation assay 1.9 0.8-1.4 Activated partial thromboplastin time (aPTT) in platelet poor plasma bycoagulation assay - 08/08/16 11:11 Activated partial thromboplastin time (aPTT) in platelet poor plasma bycoagulation assay 58 s 24-35 Comprehensive metabolic panel - 08/08/16 11:11 Serum or plasma sodium measurement (moles/volume) 137 mmol/L 135-145 Serum or plasma potassium measurement (moles/volume) 4.4 mmol/L 3.6-5.0 Serum or plasma chloride measurement (moles/volume) 95 mmol/L 98-107 Carbon dioxide 34 mmol/L 21-32 Serum or plasma anion gap determination (moles/volume) 8 mmol/L 5-14 Serum or plasma urea nitrogen measurement (mass/volume) 30 mg/dL 7-18 Serum or plasma creatinine measurement (mass/volume) 3.04 mg/dL 0.60-1.30 Serum or plasma urea nitrogen/creatinine mass ratio 10 NRG Serum or plasma creatinine measurement with calculation of estimated glomerular filtration rate 20 NRG Serum or plasma glucose measurement (mass/volume) 95 mg/dL 70-105 Serum or plasma calcium measurement (mass/volume) 8.5 mg/dL 8.5-10.1 Serum or plasma total bilirubin measurement (mass/volume) 2.3 mg/dL 0.1-1.0 Serum or plasma alkaline phosphatase measurement (enzymatic activity/volume) 123 U/L 40-136 Serum or plasma aspartate aminotransferase measurement (enzymatic activity/ volume) 19 U/L 5-34 Serum or plasma alanine aminotransferase measurement (enzymatic activity/volume ) 14 U/L 0-55 Serum or plasma protein measurement (mass/volume) 6.4 g/dL 6.4-8.2 Serum or plasma albumin measurement (mass/volume) 3.2 g/dL 3.2-4.5 Serum or plasma C reactive protein measurement (mass/volume) - 08/08/16 11:11 Serum or plasma C reactive protein measurement (mass/volume) 6.89 mg /dL 0.00-0.50 Automated blood complete blood count (hemogram) panel - 08/21/16 00:24 Blood leukocytes automated count (number/volume) 9.3 10*3/uL 4.3-11.0 Blood erythrocytes automated count (number/volume) 3.69 10*6/uL 4.35-5.85 Venous blood hemoglobin measurement (mass/volume) 11.3 g/dL 13.3-17.7 Blood hematocrit (volume fraction) 36 % 40-54 Automated erythrocyte mean corpuscular volume 98 [foz_us] 80-99 Automated erythrocyte mean corpuscular hemoglobin (mass per erythrocyte) 31 pg 25-34 Automated erythrocyte mean corpuscular hemoglobin concentration measurement ( mass/volume) 31 g/dL 32-36 Automated erythrocyte distribution width ratio 17.5 % 10.0-14.5 Automated blood platelet count (count/volume) 144 10*3/uL 130-400 Automated blood platelet mean volume measurement 11.9 [foz_us] 7.4-10.4 PT panel in platelet poor plasma by coagulation assay - 08/21/16 00:24 Prothrombin time (PT) in platelet poor plasma by coagulation assay 18.3 s 12.2-14.7 INR in platelet poor plasma or blood by coagulation assay 1.6 0.8-1.4 Activated partial thromboplastin time (aPTT) in platelet poor plasma bycoagulation assay - 08/21/16 00:24 Activated partial thromboplastin time (aPTT) in platelet poor plasma bycoagulation assay 43 s 24-35 Bacteria identification in isolate by anaerobe culture - 10/29/16 11:10 Bacteria identification in isolate by anaerobe culture NOANA NRG Gram stain microscopy - 10/29/16 11:10 GRAM STAIN RESULT NO WBC'S OR BACTERIA OBSERVED NRG Bacteria identification in wound by culture - 10/29/16 11:10 Bacteria identification in wound by culture [id number] NR FREE TEXT EXTERNAL SENSITIVITY REPORTED AT 1001, 8-5-17 NRG QUANTITY OF GROWTH Scant Growth NR Bacterial susceptibility panel - 10/29/16 11:10 Oxacillin susceptibility test by minimum inhibitory concentration > = NRG Gentamicin susceptibility test by minimum inhibitory concentration < = NRG Clindamycin susceptibility test by minimum inhibitory concentration <= NRG Erythromycin susceptibility test by minimum inhibitory concentration >= NRG Trimethoprim/sulfamethoxazole susceptibility test by minimum inhibitoryconcentration 80 NRG Vancomycin susceptibility test by minimum inhibitory concentration 1 NRG Levofloxacin susceptibility test by minimum inhibitory concentration >= NRG Rifampin susceptibility test by minimum inhibitory concentration <= NRG Tetracycline susceptibility test by minimum inhibitory concentration 2 NRG Ciprofloxacin susceptibility test by minimum inhibitory concentration R NRG C DIFFICILE AG + TOXIN A/B. - 12/18/16 00:00 RESULTS NEGATIVE FOR ANTIGEN AND TOXIN A/B NR [id number] - 12/18/16 00:00 [id number] FOOTNOTE NRG Complete blood count (CBC) with automated white blood cell (WBC) differential - 01/10/17 19:17 Blood leukocytes automated count (number/volume) 11.1 10*3/uL 4.3-11.0 Blood erythrocytes automated count (number/volume) 3.56 10*6/uL 4.35-5.85 Venous blood hemoglobin measurement (mass/volume) 11.0 g/dL 13.3-17.7 Blood hematocrit (volume fraction) 35 % 40-54 Automated erythrocyte mean corpuscular volume 97 [foz_us] 80-99 Automated erythrocyte mean corpuscular hemoglobin (mass per erythrocyte) 31 pg 25-34 Automated erythrocyte mean corpuscular hemoglobin concentration measurement ( mass/volume) 32 g/dL 32-36 Automated erythrocyte distribution width ratio 16.9 % 10.0-14.5 Automated blood platelet count (count/volume) 207 10*3/uL 130-400 Automated blood platelet mean volume measurement 11.1 [foz_us] 7.4-10.4 Automated blood neutrophils/100 leukocytes 81 % 42-75 Automated blood lymphocytes/100 leukocytes 7 % 12-44 Blood monocytes/100 leukocytes 12 % 0-12 Automated blood eosinophils/100 leukocytes 0 % 0-10 Automated blood basophils/100 leukocytes 0 % 0-10 Blood neutrophils automated count (number/volume) 9.0 10*3 1.8-7.8 Blood lymphocytes automated count (number/volume) 0.7 10*3 1.0-4.0 Blood monocytes automated count (number/volume) 1.3 10*3 0.0-1.0 Automated eosinophil count 0.0 10*3/uL 0.0-0.3 Automated blood basophil count (count/volume) 0.0 10*3/uL 0.0-0.1 PT panel in platelet poor plasma by coagulation assay - 01/10/17 19:17 Prothrombin time (PT) in platelet poor plasma by coagulation assay 20.6 s 12.2-14.7 INR in platelet poor plasma or blood by coagulation assay 1.8 0.8-1.4 Activated partial thromboplastin time (aPTT) in platelet poor plasma bycoagulation assay - 01/10/17 19:17 Activated partial thromboplastin time (aPTT) in platelet poor plasma bycoagulation assay 64 s 24-35 Comprehensive metabolic panel - 01/10/17 19:17 Serum or plasma sodium measurement (moles/volume) 139 mmol/L 135-145 Serum or plasma potassium measurement (moles/volume) 4.0 mmol/L 3.6-5.0 Serum or plasma chloride measurement (moles/volume) 95 mmol/L 98-107 Carbon dioxide 30 mmol/L 21-32 Serum or plasma anion gap determination (moles/volume) 14 mmol/L 5-14 Serum or plasma urea nitrogen measurement (mass/volume) 21 mg/dL 7-18 Serum or plasma creatinine measurement (mass/volume) 2.62 mg/dL 0.60-1.30 Serum or plasma urea nitrogen/creatinine mass ratio 8 NRG Serum or plasma creatinine measurement with calculation of estimated glomerular filtration rate 24 NRG Serum or plasma glucose measurement (mass/volume) 82 mg/dL 70-105 Serum or plasma calcium measurement (mass/volume) 8.5 mg/dL 8.5-10.1 Serum or plasma total bilirubin measurement (mass/volume) 1.4 mg/dL 0.1-1.0 Serum or plasma alkaline phosphatase measurement (enzymatic activity/volume) 207 U/L 40-136 Serum or plasma aspartate aminotransferase measurement (enzymatic activity/ volume) 46 U/L 5-34 Serum or plasma alanine aminotransferase measurement (enzymatic activity/volume ) 25 U/L 0-55 Serum or plasma protein measurement (mass/volume) 7.2 g/dL 6.4-8.2 Serum or plasma albumin measurement (mass/volume) 3.0 g/dL 3.2-4.5 Magnesium - 01/10/17 19:17 Magnesium 2.2 mg/dL 1.8-2.4 Blood lactic acid measurement (moles/volume) - 01/10/17 19:17 Blood lactic acid measurement (moles/volume) 1.83 mmol/L 0.50-2.00 Serum or plasma troponin i.cardiac measurement (mass/volume) - 01/10/17 19:17 Serum or plasma troponin i.cardiac measurement (mass/volume) < ng/ mL <0.30 Blood manual differential performed detection - 01/10/17 19:17 Blood monocytes/100 leukocytes 16 % NRG Manual blood segmented neutrophils/100 leukocytes 71 % NRG Blood band neutrophils/100 leukocytes 5 % NRG Manual blood lymphocytes/100 leukocytes 7 % NRG Manual eosinophils/100 leukocytes in nose 1 % NRG Manual blood basophils/100 leukocytes 0 % NRG Blood erythrocyte morphology finding identification NORMAL NRG Bacterial blood culture - 01/10/17 19:17 Bacterial blood culture NG NRG Arterial blood gas measurement - 01/10/17 19:22 Blood pCO2 43 mm[Hg] 35-45 Blood pO2 164 mm[Hg] 79-93 Arterial blood bicarbonate measurement (moles/volume) 32 mmol/L 23-27 Arterial blood base excess by calculation 7.8 mmol/L -2.5 -2.5 Arterial blood oxygen saturation measurement 100 % 94- 100 * Inhaled oxygen flow rate 50% NRG Arterial blood pH measurement with patient temperature correction 7.48 7.37-7.43 Arterial blood carbon dioxide, total measurement (moles/volume) 32.7 mmol/L 21.0-31.0 Body site RT RAD NRG Assessment of wrist artery patency prior to arterial puncture YES- POS NRG Setting of ventilation mode NO NRG Measurement of body temperature 100.5 NRG Influenza virus A and B antigen detection - 01/10/17 19:37 FLU RESULT NEGATIVE FOR INFLUENZA A AND B ANTIGENS BY IA NRG Bacterial blood culture - 01/10/17 19:40 Bacterial blood culture NG NRG Encounters ACCT No. Visit Date/Time Discharge Status Pt. Type Provider Facility Loc./Unit Complaint [id number] 03/18/2017 11:23:00 03/18/2017 23:59:59 CLS Outpatient MITCH GALLARDO MD [facility] RAD R05 [id number] 03/06/2017 10:14:00 03/06/2017 23:59:59 CLS Outpatient NGUYỄN VALVERDE [facility] RAD FALL-BACK PAIN [id number] 01/10/2017 19:12:00 01/10/2017 21:25:00 DIS Emergency CARLOS DOLARRY K [facility] ER RESP DISTRESS [id number] 12/18/2016 08:53:00 12/18/2016 23:59:59 CLS Outpatient NÉSTOR STAFFORD MD [facility] LAB C DIFF [id number] 12/15/2016 09:57:00 12/15/2016 23:59:59 CLS Outpatient ANDREW CHAPMAN MD [facility] WOUNDCARE [id number] 12/03/2016 10:21:00 12/03/2016 23:59:59 CLS Outpatient ANDREW CHAPMAN MD [facility] WOUNDCARE [id number] 11/25/2016 14:58:00 11/25/2016 23:59:59 CLS Outpatient SHRUTHI ERICKSON APRN [facility] RAD COUGH,SOB [id number] 11/19/2016 12:37:00 11/19/2016 23:59:59 CLS Outpatient ANDREW CHAPMAN MD [facility] WOUNDCARE [id number] 11/12/2016 10:26:00 11/12/2016 23:59:59 CLS Outpatient ANDREW CHAPMAN MD [facility] WOUNDCARE [id number] 11/05/2016 10:27:00 11/05/2016 23:59:59 CLS Outpatient ANDREW CHAPMAN MD [facility] [id number] 10/29/2016 10:26:00 10/29/2016 23:59:59 CLS Outpatient ANDREW CHAPMAN MD [facility] [id number] 10/16/2016 15:27:00 10/27/2016 16:00:00 DIS Outpatient ANDREW CHAPMAN MD [facility] [id number] 09/25/2016 13:00:00 09/25/2016 23:59:59 CLS Preadmit TY STAFFORD MD [facility] ANEMIA [id number] 07/03/2016 12:57:00 09/24/2016 00:01:00 DIS Outpatient TY STAFFORD MD [facility] ANEMIA [id number] 08/29/2016 08:38:00 08/29/2016 13:11:00 DIS Outpatient ANDREW CHAPMAN MD [facility] [id number] 08/21/2016 00:23:00 08/21/2016 01:12:00 DIS Emergency LARRY GONZALEZ DO K [facility] ER FELL [id number] 08/08/2016 10:56:00 08/08/2016 23:59:59 CLS Outpatient NGUYỄN VALVERDE [facility] RAD RLE PAIN/SWELLING [id number] 07/12/2016 09:07:00 07/12/2016 12:35:00 DIS Emergency ROBSON ROSS MD [facility] ER WHEEZING, COUGHING UP BLOOD [id number] 06/14/2016 12:09:00 06/14/2016 14:41:00 DIS Emergency LENA MAZARIEGOS APRN [facility] ER FALL, FACIAL INJ [id number] 05/20/2016 13:51:00 05/20/2016 16:00:00 DIS Outpatient ANDREW CHAPMAN MD [facility] WOUNDCARE [id number] 05/12/2016 09:10:00 05/12/2016 23:59:59 CLS Outpatient MITCH GALLARDO MD [facility] RAD PULMONARY [id number] 04/22/2016 09:56:00 04/22/2016 16:00:00 DIS Outpatient ANDREW CHAPMAN MD [facility] WOUNDCARE [id number] 03/04/2016 11:01:00 03/04/2016 23:59:59 CLS Outpatient ANDREW CHAPMAN MD [facility] LAB CHRONIC ULCER OF RIGHT CALF [id number] 02/29/2016 11:37:00 03/03/2016 11:20:00 DIS Inpatient FELICIA KOWALSKI DO [facility] 4TH SWB SEPTIC SHOCK PNA BILAT [id number] 02/26/2016 07:58:00 02/29/2016 11:37:00 DIS Inpatient HELADIO SALES MD [facility] 4TH SEPTIC SHOCK PNA BILAT [id number] 01/01/2016 13:50:00 01/01/2016 16:00:00 DIS Outpatient SHRUTHI ERICKSON APRN [facility] WOUNDCARE [id number] 12/25/2015 13:46:00 12/31/2015 09:01:00 DIS Outpatient SHRUTHI ERICKSON APRN [facility] WOUNDCARE [id number] 05/25/2015 14:24:00 05/25/2015 23:59:59 CLS Outpatient LORENA RENE DO [facility] RAD CKD COPD DYSPNEA [id number] 03/29/2015 15:00:00 03/29/2015 23:59:59 CLS Preadmit LORENA RENE DO [facility] PULM COPD [id number] 12/28/2014 08:00:00 03/28/2015 00:01:00 DIS Outpatient LORENA RENE DO [facility] PULM COPD [id number] 02/20/2015 12:44:00 02/21/2015 11:19:00 DIS Inpatient MIKE REYES MD [facility] 4TH CHF EXACERBATION [id number] 02/02/2015 13:18:00 02/02/2015 14:30:00 DIS Outpatient DEDRA WADSWORTH [employer] [facility] REHAB FULL THICKNESS R RCT [id number] 01/19/2015 14:07:00 01/19/2015 23:59:59 CLS Outpatient NELIDA RAND FACC, TORY MCLAIN CCDS [facility] CARD CAD [id number] 12/31/2014 18:44:00 12/31/2014 19:14:00 DIS Emergency CATERINA GALLARDO MD [facility] ER FALL/R SHOULDER PAIN [id number] 12/26/2014 09:00:00 12/27/2014 00:01:00 DIS Outpatient LORENA RENE DO [facility] PULM COPD [id number] 11/09/2014 08:39:00 12/27/2014 00:01:00 DIS Outpatient LARRY GONZALEZ DO [facility] LAB DIARRHEA [id number] 11/02/2014 10:20:00 11/02/2014 13:36:00 DIS Emergency LARRY GONZALEZ DO [facility] ER ABD PAIN;DIARRHEA [id number] 07/07/2014 14:49:00 07/07/2014 23:59:59 CLS Outpatient LORENA RENE DO [facility] RAD DYSPNEA,OBESITY,SLEEP APNEA [id number] 06/30/2014 10:22:00 06/30/2014 23:59:59 CLS Outpatient LORENA RENE DO [facility] RAD CHF,OBESITY,LEG SWELLING, CKD III,CAD [id number] 03/12/2013 08:07:00 03/12/2013 09:30:00 DIS Emergency HELADIO SALES MD [facility] ER FALL L SHOULDER PAIN [id number] 11/17/2012 16:07:00 11/17/2012 17:34:00 DIS Emergency HELADIO SALES MD [facility] ER BLISTER L LEG [id number] 10/10/2012 22:01:00 10/13/2012 13:50:00 DIS Inpatient HELADIO SALES MD [facility] 4TH ACUTE CHF EXACERBATION [id number] 09/26/2012 12:22:00 09/26/2012 23:59:59 CLS Outpatient [id number] 08/25/2012 09:03:00 08/25/2012 23:59:59 CLS Outpatient RIVERA RAND, NÉSTOR Ramirez [facility] RAD CKD STAGE III [id number] 04/18/2017 05:41:00 ACT Emergency MERCEDES NAVARRETE MD [facility] ER RECTAL BLEEDING [id number] 06/29/2015 14:20:00 Document Registration [id number] 07/24/2014 18:43:00 Document Registration [id number] 06/29/2014 13:48:00 Document Registration [id number] 09/30/2011 11:35:00 Document Registration [id number] 04/27/2011 19:00:00 Document Registration [id number] 04/09/2011 09:47:00 Document Registration [id number] 10/08/2010 05:40:00 Document Registration [id number] 10/07/2010 08:56:00 Document Registration [id number] 10/02/2010 12:03:00 Document Registration
[2017-04-18 06:35] LABS: BASOPHILS # (AUTO) 0.1 10^3/uL (0.0-0.1); BASOPHILS % (AUTO) 1 % (0-10); EOSINOPHILS # (AUTO) 0.2 10^3/uL (0.0-0.3); EOSINOPHILS % (AUTO) 3 % (0-10); HEMATOCRIT 33 % (40-54); HEMOGLOBIN 10.5 G/DL (13.3-17.7); LYMPHOCYTES # (AUTO) 1.9 X 10^3 (1.0-4.0); LYMPHOCYTES % (AUTO) 28 % (12-44); MEAN CORPUSCULAR HEMOGLOBIN 29 PG (25-34); MEAN CORPUSCULAR HGB CONC 32 G/DL (32-36); MEAN CORPUSCULAR VOLUME 90 FL (80-99); MEAN PLATELET VOLUME 11.9 FL (7.4-10.4); MONOCYTES # (AUTO) 1.8 X 10^3 (0.0-1.0); MONOCYTES % (AUTO) 26 % (0-12); NEUTROPHILS % (AUTO) 43 % (42-75); PLATELET COUNT 156 10^3/uL (130-400); RED BLOOD COUNT 3.66 10^6/uL (4.35-5.85); RED CELL DISTRIBUTION WIDTH 18.4 % (10.0-14.5)
[2017-04-18 06:40] LABS: INR 2.1 (0.8-1.4); PROTHROMBIN TIME PATIENT 23.3 SEC (12.2-14.7)
[2017-04-18 06:51] LABS: BAND NEUTROPHILS 0 %; BASOPHILS % (MANUAL) 0 %; EOSINOPHILS % (MANUAL) 2 %; LYMPHOCYTES % (MANUAL) 17 %; MONOCYTES % (MANUAL) 22 %; NEUTROPHILS % (MANUAL) 45 %
[2017-04-18 06:52] LABS: ANISOCYTOSIS MODERATE; HYPOCHROMASIA MARKED; MICROCYTOSIS SLIGHT; POLYCHROMASIA SLIGHT; REACTIVE LYMPHOCYTES 14 %
[2017-04-18 07:16] LABS: ALBUMIN 2.8 GM/DL (3.2-4.5); CALCIUM 8.5 MG/DL (8.5-10.1); CREATININE SERUM 3.98 MG/DL (0.60-1.30); POTASSIUM 4.5 MMOL/L (3.6-5.0); TOTAL PROTEIN 6.2 GM/DL (6.4-8.2)
--- NOTE | 2017-04-18 07:45 | ED GI ---
General Chief Complaint: Rect Problems Stated Complaint: RECTAL BLEEDING Nursing Triage Note: PT TO ED 7 W/ FOR C/O RECTAL BLEEDING ONSET LAST NOC, WORSE THIS AM. REPORTS WAS TAKING PT TO DIALYSIS THIS AM ET NOTED THAT PT HAD BLOOD IN HIS UNDERWEAR THROUGH TO HIS SWEATS. PT DENIES C/O PAIN AT THIS TIME. Sepsis Screen: No Definite Risk Source of Information: Patient, Family Exam Limitations: No Limitations History of Present Illness Date Seen by Provider: Apr 18, 2017 Time Seen By Provider: 06:15 Initial Comments This 77-year-old white male presents with rectal bleeding. Patient had a large bright red rectal bleeding last night. The patient had a worse bleed this morning. Bleeding has been painless. Patient is on eloquent's. The patient was due for dialysis here in [place] this morning. The patient and his came to the emergency department for evaluation. Patient denies other bleeding. He has been compliant on his medicines. He denies associated fever or chills. 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 Allergies and Home Medications Allergies Coded Allergies: No Known Drug Allergies (Verified , 02/14/09) Home Medications Amiodarone HCl 200 Mg Tablet, 200 MG PO 1700, (Reported) Aspirin 81 Mg Tabec, 81 MG PO HS, (Reported) Atorvastatin Calcium 10 Mg Tablet, 10 MG PO Q48H, (Reported) Dabigatran Etexilate Mesylate 75 Mg Capsule, 75 MG PO 0700,1700, (Reported) Dicloxacillin Sodium 250 Mg Cap, 250 MG PO, (Reported) Levofloxacin 250 Mg Tablet, 250 MG PO DAILY, (Reported) Metoprolol Succinate 25 Mg Tab.er.24h, 12.5 MG PO DAILY, (Reported) TAKES 1/2 (25MG) TABLET on Thursday, Thursday, Thursday et Thursday. Not on dialysis days Sertraline HCl 50 Mg Tablet, 50 MG PO DAILY, (Reported) Review of Systems Constitutional: No chills, No fever EENTM: No Blurred Vision Respiratory: Denies Cough Cardiovascular: Denies Chest Pain Gastrointestinal: Denies Abdomen Distended, Denies Abdominal Pain, Rectal Bleeding, Denies Vomiting Genitourinary: No Symptoms Reported Musculoskeletal: No back pain Skin: No change in color, other (no increase in his chronic bruising has occurred.) Psychiatric/Neurological: No Symptoms Reported Endocrine: No Symptoms Reported Hematologic/Lymphatic: Anemia, Easy Bleeding, Easy Bruising Past Poisefr-Mfqvkh-Bladrs Hx Patient Social History Alcohol Use: Denies Use Recreational Drug Use: No Smoking Status: Former Smoker Type Used: Cigarettes Former Smoker, Quit: Feb 25, 1997 2nd Hand Smoke Exposure: No Recent Foreign Travel: No Contact w/Someone Who Travel: No Recent Infectious Disease Expo: No Recent Hopitalizations: Yes Physical Abuse: No Sexual Abuse: No Mistreated: No Fear: No Immunizations Up To Date Tetanus Booster (TDap): Less than 5yrs PED Vaccines UTD: No Date of Pneumonia Vaccine: Dec 27, 2015 Date of Influenza Vaccine: Dec 27, 2015 Seasonal Allergies Seasonal Allergies: No Surgeries History of Surgeries: Yes Surgeries: Cardiac, CABG, Defibrillator, Dialysis, Pacemaker, Vascular Surgery Respiratory History of Respiratory Disorde: Yes (CHRONIC DYSPNEA; O2 AT 4L/NC CONTINUOUSLY) Respiratory Disorders: Sleep Apnea, COPD Currently Using CPAP: No Currently Using BIPAP: No Cardiovascular History of Cardiac Disorders: Yes (PACEMAKER/DEFIBRILLATOR, CHF) Cardiac Disorders: Atrial Fibrillation, Cardiomyopathy, Chronic Edema/Swelling , Coronary Artery Disease, High Cholesterol, Hypertension Neurological History of Neurological Disord: Yes Neurological Disorders: Vertigo Reproductive System Hx Reproductive Disorders: No Genitourinary History of Genitourinary Disor: Yes Genitourinary Disorders: Renal Failure, Dialysis Gastrointestinal History of Gastrointestinal Di: No Musculoskeletal History of Musculoskeletal Dis: Yes Musculoskeletal Disorders: Chronic Back Pain Endocrine History of Endocrine Disorders: Yes Endocrine Disorders: Diabetes, Non-Insulin dep HEENT History of HEENT Disorders: Yes HEENT Disorders: Glaucoma Loss of Vision: Bilateral Hearing Impairment: Hard of Hearing 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 Type of Tx Receive: Chemotherapy Psychosocial History of Psychiatric Problem: No Suicide Risk Score: 0 Integumentary History of Skin or Integumenta: Yes (CHRONIC LEG WOUNDS, AND LEG CELLULITIS) Blood Transfusions History of Blood Disorders: Yes (HX OF NON HODGKINS LYMPHOMA IN 1996) Adverse Reaction to a Blood Tr: No Reviewed Nursing Assessment Reviewed/Agree w Nursing PMH: Yes Family Medical History Family Medial History: Diabetes mellitus G8 BROTHER Prostate cancer G8 BROTHER Physical Exam Vital Signs VS - Last 72 Hours, by Label 04/18/17 04/18/17 05:46 08:47 Temp 96.8 Pulse 80 88 Resp 20 18 B/P (MAP) 89/55 (66) Pulse Ox 96 98 O2 Delivery Room Air O2 Flow Rate 4.00 2.00 Capillary Refill : Less Than 3 Seconds General Appearance: no apparent distress HEENT: normal ENT inspection Neck: full range of motion, supple Respiratory: normal breath sounds, no respiratory distress Cardiovascular: irregularly irregular Gastrointestinal: normal bowel sounds, non tender, soft Rectal: heme positive stool, other (evidence of rectal bleeding was noted on the patient's underwear.) Extremities: normal range of motion, non-tender, normal inspection Back: normal inspection, no CVA tenderness Neurologic/Psychiatric: no motor/sensory deficits, alert, normal mood/affect, oriented x 3 Skin: normal color, warm/dry Progress/Results/Core Measures Results/Orders Lab Results Laboratory Tests Test 04/18/17 05:58 Range/Units White Blood Count 7.0 4.3-11.0 10^3/uL Red Blood Count 3.66 L 4.35-5.85 10^6/uL Hemoglobin 10.5 L 13.3-17.7 G/DL Hematocrit 33 L 40-54 % Mean Corpuscular Volume 90 80-99 FL Mean Corpuscular Hemoglobin 29 25-34 PG Mean Corpuscular Hemoglobin Concent 32 32-36 G/DL Red Cell Distribution Width 18.4 H 10.0-14.5 % Platelet Count 156 130-400 10^3/uL Mean Platelet Volume 11.9 H 7.4-10.4 FL Neutrophils (%) (Auto) 43 42-75 % Lymphocytes (%) (Auto) 28 12-44 % Monocytes (%) (Auto) 26 H 0-12 % Eosinophils (%) (Auto) 3 0-10 % Basophils (%) (Auto) 1 0-10 % Neutrophils # (Auto) 3.0 1.8-7.8 X 10^3 Lymphocytes # (Auto) 1.9 1.0-4.0 X 10^3 Monocytes # (Auto) 1.8 H 0.0-1.0 X 10^3 Eosinophils # (Auto) 0.2 0.0-0.3 10^3/uL Basophils # (Auto) 0.1 0.0-0.1 10^3/uL Neutrophils % (Manual) 45 % Lymphocytes % (Manual) 17 % Monocytes % (Manual) 22 % Eosinophils % (Manual) 2 % Basophils % (Manual) 0 % Band Neutrophils 0 % Reactive Lymphocytes 14 % Polychromasia SLIGHT Hypochromasia MARKED Anisocytosis MODERATE Microcytosis SLIGHT Macrocytosis MODERATE Prothrombin Time 23.3 H 12.2-14.7 SEC INR Comment 2.1 H 0.8-1.4 Sodium Level 136 135-145 MMOL/L Potassium Level 4.5 3.6-5.0 MMOL/L Chloride Level 90 L 98-107 MMOL/L Carbon Dioxide Level 29 21-32 MMOL/L Anion Gap 17 H 5-14 MMOL/L Blood Urea Nitrogen 33 H 7-18 MG/DL Creatinine 3.98 H 0.60-1.30 MG/DL Estimat Glomerular Filtration Rate 15 BUN/Creatinine Ratio 8 Glucose Level 73 70-105 MG/DL Calcium Level 8.5 8.5-10.1 MG/DL Total Bilirubin 1.0 0.1-1.0 MG/DL Aspartate Amino Transf (AST/SGOT) 62 H 5-34 U/L Alanine Aminotransferase (ALT/SGPT) 19 0-55 U/L Alkaline Phosphatase 162 H 40-136 U/L Total Protein 6.2 L 6.4-8.2 GM/DL Albumin 2.8 L 3.2-4.5 GM/DL My Orders Orders - VISHAL LEWIS MD Cbc With Automated Diff (04/18/17 06:26) Comprehensive Metabolic Panel (04/18/17 06:26) Ua Culture If Indicated (04/18/17 06:26) Protime With Inr (04/18/17 06:26) Manual Differential (04/18/17 05:58) Vital Signs/I&O Vital Sign - Last 12Hours 04/18/17 04/18/17 05:46 08:47 Temp 96.8 Pulse 80 88 Resp 20 18 B/P (MAP) 89/55 (66) Pulse Ox 96 98 O2 Delivery Room Air O2 Flow Rate 4.00 2.00 Blood Pressure Mean: 66 Progress Note : Time: 07:44 Progress Note The patient was accepted in transfer to [facility] by Dr. Hoyos. The patient will be transferred by ambulance. Departure Impression Impression: Primary Impression: GI bleed Disposition: XFER SHT-TRM HOSP Condition: Unchanged Transfer Time Spoke to Accepting Phy: 07:[address] Hoyos at [facility] accepted the patient in transfer. Transfer Time: 07:46 Transfer Facility: [facility] Departure-Patient Inst. Referrals: MITCH GALLARDO MD (PCP/Family) Primary Care Physician VISHAL LEWIS MD Apr 18, 2017 07:44
[2017-04-18 08:47] VITALS: BP 88/56
== END 2017-04-18 08:49 | disposition short-term general hospital (02) ==
LOC: EDUNIT# 05:39 → ER 05:41
DX: K92.2 Gastrointestinal hemorrhage, unspecified (principal); I25.10 Atherosclerotic heart disease of native coronary artery without angina pectoris; I48.91 Unspecified atrial fibrillation; J44.9 Chronic obstructive pulmonary disease, unspecified; E78.00 Pure hypercholesterolemia, unspecified; I11.0 Hypertensive heart disease with heart failure; I50.9 Heart failure, unspecified; E11.9 Type 2 diabetes mellitus without complications; Z87.891 Personal history of nicotine dependence; Z85.72 Personal history of non-Hodgkin lymphomas; Z86.79 Personal history of other diseases of the circulatory system; Z92.21 Personal history of antineoplastic chemotherapy; Z99.2 Dependence on renal dialysis; Z95.810 Presence of automatic (implantable) cardiac defibrillator; Z95.1 Presence of aortocoronary bypass graft; Z79.01 Long term (current) use of anticoagulants; Z79.82 Long term (current) use of aspirin; Z99.81 Dependence on supplemental oxygen
CPT/HCPCS: 36415; 80053; 85007; 85027; 85610; 99285